=== PATIENT | female | born 1955 | race Caucasian/White ===

== ENCOUNTER 2016-05-26 15:15 | Emergency (ER) | payer MEDICARE, MEDICAID ==
[2016-05-26] MEDS ORDERED: Glycerin Adult 2.1 GM Supp RECTAL ONE (15:49)
[2016-05-26] MEDS ORDERED: Meclizine 25 MG Tab PO ONE (15:49)
[2016-05-26] MEDS ORDERED: Sodium Chloride 0.9% 10 ML Syringe FLUSH PRN (15:50)
[2016-05-26] MEDS ORDERED: cefTRIAXone 1 GM in Sodium Chloride 0.9% 50 ML IV ONE ×2 (15:51→17:00)
[2016-05-26] MEDS ORDERED: Acetaminophen 500 MG Tab PO ONE (15:56)
--- NOTE | 2016-05-26 15:56 | EDM.PDOC ---
ED HPI ENT - General Chief Complaint: ENT Problem Stated Complaint: WEAKNESS Time Seen by Provider: 05/26/16 15:45 Source: Reports: Patient, Old records History Limitations: Reports: No limitations - History of Present Illness INITIAL COMMENTS - FREE TEXT/NARRATIVE: 60 yo female here with swelling to the L side of her nose, dizziness, and constipation. Saw Dr. Santos recently and was placed on Bactrim(has had 3 doses so far). Nose infection getting worse since starting the Bactrim. Denies fever. Describes dizziness as vertigo/spinning. States currently constipated for a few days, but alternates historically between constipation and diarrhea. Symptom Onset Date: 05/25/16 Timing/Duration: Reports: Hour(s):, Getting worse Severity: moderate Location: Reports: nose (L side of nose) Quality: Reports: Other (tender) Improves with: Reports: None Worsens with: Reports: Other (time) Associated symptoms: Reports: other (vertigo/constipation). 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) (Bactrim) - Related Data Allergies/ADRs: Allergies Allergy/AdvReac Type Severity Reaction Status Date / Time acetaminophen Allergy Cannot Verified 05/26/16 15:59 [From Darvocet-N] Remember ciprofloxacin [From Cipro] Allergy Rash Verified 05/26/16 15:59 ciprofloxacin HCl Allergy Rash Verified 05/26/16 15:59 [From Cipro] dexamethasone [From Maxitrol] Allergy Cannot Verified 05/26/16 15:59 Remember hydrocodone [Hydrocodone] Allergy Cannot Verified 05/26/16 15:59 Remember morphine Allergy Nausea and Verified 05/26/16 15:59 Vomiting neomycin [From Maxitrol] Allergy Cannot Verified 05/26/16 15:59 Remember Penicillins Allergy Rash Verified 05/26/16 15:59 polymyxin B [From Maxitrol] Allergy Cannot Verified 05/26/16 15:59 Remember propoxyphene Allergy Cannot Verified 05/26/16 15:59 [From Darvocet-N] Remember shellfish derived Allergy Difficulty Verified 05/26/16 16:01 Swallowing tramadol Allergy Rash Verified 05/26/16 16:01 tea Allergy Mild Nausea and Uncoded 05/26/16 16:01 Vomiting Home Meds: Home Meds Ascorbate Calcium [Vitamin C] 1,000 mg PO DAILY 12/10/15 [History] Aspirin [Halfprin] 81 mg PO DAILY 12/10/15 [History] Calcium Carbonate/Vitamin D3 [Calcium 600 + D3 Softgel] 2 each PO DAILY [History] Cholecalciferol (Vitamin D3) [Vitamin D3] 2,000 unit PO DAILY 12/10/15 [History] Cyanocobalamin (Vitamin B12) [Vitamin B12] 1,000 mcg PO DAILY 12/10/15 [History] Dorzolamide HCl/Timolol Maleat [Cosopt Eye Drops] 1 drop EYEBOTH BID 12/10/15 [ History] Escitalopram [Lexapro] 20 mg PO DAILY 12/10/15 [History] Gabapentin [Neurontin] 600 mg PO TID 12/10/15 [History] Multivitamin [Daily Multiple Vitamin] 1 tab PO DAILY 12/10/15 [History] Nortriptyline 50 mg PO DAILY 12/10/15 [History] Omeprazole 20 mg PO DAILY 12/10/15 [History] Ondansetron [Zofran ODT] 4 mg PO Q8H PRN 12/10/15 [History] Oxybutynin [Oxybutynin ER] 10 mg PO DAILY 12/10/15 [History] Simvastatin [Zocor] 20 mg PO DAILY 12/10/15 [History] clonazePAM [Clonazepam] 1 mg PO BID 12/10/15 [History] sulfaSALAzine 500 mg PO QID 12/10/15 [History] Past Medical History HEENT History: Reports: Cataract, Hard of hearing Cardiovascular History: Reports: High cholesterol Gastrointestinal History: Reports: Chronic constipation, GERD, Irritable bowel syndrome Genitourinary History: Reports: Renal calculus 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 , Musculoskeletal History: Reports: Arthritis Psychiatric History: Reports: Anxiety, Depression - Past Surgical History HEENT Surgical History: Reports: Cataract surgery Cardiovascular Surgical History: Reports: None GI Surgical History: Reports: Cholecystectomy, Other (see below) Other GI Surgeries/Procedures: Surgery for ulcer Female Surgical History: Reports: Hysterectomy Musculoskeletal Surgical History: Reports: None Social & Family History - Tobacco Use Smoking Status *Q: Current Every Day Smoker Years of Tobacco use: 46 Packs/Tins Daily: 1 Used Tobacco, but Quit: No Second Hand Smoke Exposure: No - Caffeine Use Caffeine Use: Reports: Coffee, Soda - Alcohol Use Days Per Week of Alcohol Use: 0 - Recreational Drug Use Recreational Drug Use: No ED ROS ENT - Review of Systems Review Of Systems: See Below Constitutional: Reports: no symptoms HEENT: Reports: Nose pain (L side of nose red/tender/ and swollen) Respiratory: Reports: No Symptoms Cardiovascular: Reports: No symptoms Endocrine: Reports: no symptoms GI/Abdominal: Reports: Constipation. Denies: Abdominal pain, Black stool, Bloody stool, Diarrhea, Decreased appetite, Distension, Hematemesis, Hematochezia, Melena, Nausea, Vomiting : Reports: no symptoms Musculoskeletal: Reports: no symptoms Skin: Reports: erythema (to L side of nose) Neurological: Reports: No Symptoms ED EXAM, ENT - Physical Exam Exam: See Below Text/Narrative:: Appears much older than stated age. Exam Limited By: No limitations General Appearance: alert, WD/WN, no apparent distress Eye Exam: bilateral eye: normal inspection Ears: hearing loss Nose: normal mucousa, no blood, nasal swelling (L side of nose red and a little swollen), nasal tenderness. No: active bleeding, dried blood Mouth/Throat: Normal inspection, Normal lips, Normal oropharynx, Normal teeth Head: atraumatic, normocephalic Neck: normal inspection, supple, non-tender Respiratory/Chest: no respiratory distress, lungs clear, normal breath sounds, no accessory muscle use Cardiovascular: regular rate, rhythm, no edema GI/Abdominal: normal bowel sounds, soft, no distention, other (Some generalized fullness) Back: normal inspection Extremities: normal inspection, normal range of motion, non-tender, no pedal edema Neurological: alert, oriented, CN II-XII intact, normal cognition, no motor/ sensory deficits Psychiatric: normal affect, normal mood Skin: Warm, Dry, Intact, Erythema (L side of nose) Lymphatic: no adenopathy Course - Vital Signs Text/Narrative:: meclizine 25 mg po, acetaminophen 1000mg po, Rocephin 1 gm IV, KCL [address] scan-soft tissue swelling only Last Recorded V/S: Last Vital Signs Temp 36.9 C 05/26/16 15:48 Pulse 81 05/26/16 15:48 Resp 16 05/26/16 15:48 BP 112/62 05/26/16 15:48 Pulse Ox 99 05/26/16 15:48 - Orders/Labs/Meds Orders: Active Orders 24 hr Category Date Time Status Max Facial Sinus wo Cont [CT] Stat Exams 05/26/16 17:14 Taken Sodium Chloride 0.9% [Saline Flush] Med 05/26/16 15:50 Active 10 ml FLUSH ASDIRECTED PRN Saline Lock Insert [OM.PC] Routine Oth 05/26/16 15:50 Ordered Medication Orders Sodium Chloride (Saline Flush) 10 ml FLUSH ASDIRECTED PRN PRN Reason: Keep Vein Open Last Admin: 05/26/16 16:57 Dose: 10 ml Labs: Laboratory Tests 05/26/16 05/26/16 05/26/16 Range/Units 16:20 16:20 16:45 WBC 11.6 (4.5-12.0) X10-3/uL RBC 3.67 (3.23-5.20) x10(6)uL Hgb 11.6 (11.5-15.5) g/dL Hct 34.3 (30.0-51.3) % MCV 93.4 (80-96) fL MCH 31.6 (27.7-33.6) pg MCHC 33.8 (32.2-35.4) g/dL RDW 13.1 (11.5-15.5) % Plt Count 339 (125-369) X10(3)uL Sodium 134 L (135-145) mmol/L Potassium 3.3 L (3.5-5.3) mmol/L Chloride 98 L (100-110) mmol/L Carbon Dioxide 28 (23-29) mmol/L BUN 11 (8-23) mg/dL Creatinine 0.7 (0.6-1.3) mg/dL Est Cr Clr Drug Dosing 65.90 mL/min Estimated GFR (MDRD) > 60 (>60) BUN/Creatinine Ratio 15.7 (9-20) Glucose 83 (80-116) mg/dL Calcium 9.3 (8.6-10.2) mg/dL C-Reactive Protein 7.6 H* (0.0-1.0) mg/dL Urine Color Yellow (YELLOW) Urine Appearance Clear (CLEAR) Urine pH 6.0 (5.0-6.5) Ur Specific [place] 1.010 (1.010-1.025) Urine Protein Negative (NEGATIVE) mg/dL Urine Glucose (UA) Normal (NEGATIVE) mg/dL Urine Ketones Negative (NEGATIVE) mg/dL Urine Occult Blood Negative (NEGATIVE) Urine Nitrite Negative (NEGATIVE) Urine Bilirubin Negative (NEGATIVE) Urine Urobilinogen Normal (NEGATIVE) mg/dL Ur Leukocyte Esterase Negative (NEGATIVE) Urine RBC Not seen (0) Urine WBC 0-5 (0) Ur Squamous Epith Cells Few H (NS,R,O) Urine Bacteria Rare H (NS) Meds: Medications Generic Name Dose Route Start Last Admin Trade Name Freq PRN Reason Stop Dose Admin Sodium Chloride 10 ml 05/26/16 15:50 05/26/16 16:57 Saline Flush FLUSH 10 ml ASDIRECTED PRN Administration Keep Vein Open Discontinued Medications Generic Name Dose Route Start Last Admin Trade Name Freq PRN Reason Stop Dose Admin Acetaminophen 1,000 mg 05/26/16 15:56 05/26/16 17:13 Tylenol Extra Strength PO 05/26/16 15:57 Not Given ONETIME ONE Glycerin 1 supp 05/26/16 15:49 05/26/16 16:29 Sani-Supp Adult RECTAL 05/26/16 15:50 1 supp ONETIME ONE Administration Ceftriaxone Sodium 1 gm/ 50 mls @ 100 mls/hr 05/26/16 17:00 05/26/16 16:58 Sodium Chloride IV 05/26/16 17:29 100 mls/hr ONETIME ONE Administration Meclizine HCl 25 mg 05/26/16 15:49 05/26/16 16:29 Antivert PO 05/26/16 15:50 25 mg ONETIME ONE Administration Potassium Chloride 40 meq 05/26/16 17:03 05/26/16 17:15 Klor-Con 10 PO 05/26/16 17:04 40 meq ONETIME ONE Administration Departure - Departure Time of Disposition: 18:10 Disposition: Home, Self-Care 01 Condition: fair Clinical Impression: Facial cellulitis, Hypokalemia - My Orders Last 24 Hours: My Active Orders 05/26/16 15:50 Sodium Chloride 0.9% [Saline Flush] 10 ml FLUSH ASDIRECTED PRN Saline Lock Insert [OM.PC] Routine 05/26/16 17:14 Max Facial Sinus wo Cont [CT] Stat - Assessment/Plan Last 24 Hours: My Active Orders 05/26/16 15:50 Sodium Chloride 0.9% [Saline Flush] 10 ml FLUSH ASDIRECTED PRN Saline Lock Insert [OM.PC] Routine 05/26/16 17:14 Max Facial Sinus wo Cont [CT] Stat
[2016-05-26] MEDS ORDERED: Potassium Chloride 10 MEQ Tab.ER PO ONE (17:03)
[2016-05-26 19:01] VITALS: BP 107/62
== END 2016-05-26 18:58 | disposition home or self-care (01) ==
LOC: FB.ED 15:15
DX: L03.211 Cellulitis of face (principal); E87.6 Hypokalemia; M19.90 Unspecified osteoarthritis, unspecified site; F41.9 Anxiety disorder, unspecified; F32.9 Major depressive disorder, single episode, unspecified; E78.00 Pure hypercholesterolemia, unspecified; K21.9 Gastro-esophageal reflux disease without esophagitis; F17.210 Nicotine dependence, cigarettes, uncomplicated; Z98.49 Cataract extraction status, unspecified eye; Z90.49 Acquired absence of other specified parts of digestive tract; Z90.710 Acquired absence of both cervix and uterus; Z79.82 Long term (current) use of aspirin; Z79.899 Other long term (current) drug therapy; Z88.5 Allergy status to narcotic agent; Z88.0 Allergy status to penicillin; Z91.013 Allergy to seafood; Z91.09 Other allergy status, other than to drugs and biological substances; Z88.1 Allergy status to other antibiotic agents; Z88.6 Allergy status to analgesic agent; Z88.8 Allergy status to other drugs, medicaments and biological substances
CPT/HCPCS: 36415; 70486; 80048; 81001; 85027; 86140; 96365; 99285; A9270; J0696; J7050; 99284

== ENCOUNTER 2016-10-20 11:52 | Emergency (ER) | payer MEDICARE, MEDICAID ==
[2016-10-20] MEDS ORDERED: HYDROmorphone 2 MG/ML SDV IVPUSH ONE ×2 (11:54→12:34)
[2016-10-20] MEDS ORDERED: Lactated Ringers 1,000 ML IV SCH (12:00)
[2016-10-20] MEDS ORDERED: Metoclopramide 10 MG/2 ML SDV IVPUSH ONE (12:03)
--- NOTE | 2016-10-20 12:10 | EDM.PDOC ---
ED HPI GENERAL MEDICAL PROBLEM - General Chief Complaint: Abdominal Pain Stated Complaint: SIDE PAIN Time Seen by Provider: 10/20/16 11:55 Source of Information: Reports: Patient, Old Records, RN History Limitations: Reports: Other (poor historian) - History of Present Illness INITIAL COMMENTS - FREE TEXT/NARRATIVE: 60 yo female presents to the ER on referral from Dr. Santos for RUQ abdominal pain that began 2 days ago and has progressed. She had one dark stool since the pain began. Does have a pHx of colon problems and PUD. Is on sulfasalazine and omeprazole. Is a smoker. May have IBS based on a hx of alternating diarrhea and constipation. No fever. Has nausea without vomiting. Took morphine this morning at home without benefit. Her chart shows a hx of a pancreatic pseudocyst, but Karen seems unaware of this. Pain is constant, but is worse with movement or pressing on area or bending. Lives alone with her dog. Has no gallbladder. Onset: Gradual Onset Date: 10/18/16 Duration: Day(s): Location: Reports: Abdomen (RUQ) Quality: Reports: Ache Severity: Severe Improves with: Reports: None Worsens with: Reports: Breathing, Movement Context: Reports: Other (Hx of both PUD and "colon problems" and ? IBS) Associated Symptoms: Reports: Loss of Appetite, Nausea/Vomiting (no vomiting.). 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 Medication(s) (morphine this am without relief.) - Related Data Allergies Allergy/AdvReac Type Severity Reaction Status Date / Time acetaminophen Allergy Cannot Verified 05/26/16 15:59 [From Darvocet-N] Remember ciprofloxacin [From Cipro] Allergy Rash Verified 05/26/16 15:59 ciprofloxacin HCl Allergy Rash Verified 05/26/16 15:59 [From Cipro] dexamethasone [From Maxitrol] Allergy Cannot Verified 05/26/16 15:59 Remember hydrocodone [Hydrocodone] Allergy Cannot Verified 05/26/16 15:59 Remember morphine Allergy Nausea and Verified 05/26/16 15:59 Vomiting neomycin [From Maxitrol] Allergy Cannot Verified 05/26/16 15:59 Remember Penicillins Allergy Rash Verified 05/26/16 15:59 polymyxin B [From Maxitrol] Allergy Cannot Verified 05/26/16 15:59 Remember propoxyphene Allergy Cannot Verified 05/26/16 15:59 [From Nicho-N] Remember shellfish derived Allergy Difficulty Verified 05/26/16 16:01 Swallowing tramadol Allergy Rash Verified 05/26/16 16:01 tea Allergy Mild Nausea and Uncoded 05/26/16 16:01 Vomiting Home Meds: Home Meds Ascorbate Calcium [Vitamin C] 1,000 mg PO DAILY 12/10/15 [History] Aspirin [Halfprin] 81 mg PO DAILY 12/10/15 [History] Calcium Carbonate/Vitamin D3 [Calcium 600 + D3 Softgel] 2 each PO DAILY [History] Cholecalciferol (Vitamin D3) [Vitamin D3] 2,000 unit PO DAILY 12/10/15 [History] Cyanocobalamin (Vitamin B12) [Vitamin B12] 1,000 mcg PO DAILY 12/10/15 [History] Dorzolamide HCl/Timolol Maleat [Cosopt Eye Drops] 1 drop EYEBOTH BID 12/10/15 [ History] Escitalopram [Lexapro] 20 mg PO DAILY 12/10/15 [History] Gabapentin [Neurontin] 600 mg PO TID 12/10/15 [History] Multivitamin [Daily Multiple Vitamin] 1 tab PO DAILY 12/10/15 [History] Nortriptyline 50 mg PO DAILY 12/10/15 [History] Omeprazole 20 mg PO DAILY 12/10/15 [History] Ondansetron [Zofran ODT] 4 mg PO Q8H PRN 12/10/15 [History] Oxybutynin [Oxybutynin ER] 10 mg PO DAILY 12/10/15 [History] Simvastatin [Zocor] 20 mg PO DAILY 12/10/15 [History] clonazePAM [Clonazepam] 1 mg PO BID 12/10/15 [History] sulfaSALAzine 500 mg PO QID 12/10/15 [History] Past Medical History HEENT History: Reports: Cataract, Hard of Hearing Cardiovascular History: Reports: High Cholesterol Gastrointestinal History: Reports: Chronic Constipation, GERD, Irritable Bowel Syndrome Genitourinary History: Reports: Renal Calculus 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 , Musculoskeletal History: Reports: Arthritis Psychiatric History: Reports: Anxiety, Depression - Infectious Disease History Infectious Disease History: Reports: Chicken Pox, Mumps - Past Surgical History HEENT Surgical History: Reports: Cataract Surgery GI Surgical History: Reports: Cholecystectomy, Other (See Below) Social & Family History - Tobacco Use Smoking Status *Q: Current Every Day Smoker Years of Tobacco use: 46 Packs/Tins Daily: 1 Used Tobacco, but Quit: No Second Hand Smoke Exposure: No - Caffeine Use Caffeine Use: Reports: Coffee, Soda - Alcohol Use Days Per Week of Alcohol Use: 0 - Recreational Drug Use Recreational Drug Use: No ED ROS GENERAL - Review of Systems Review Of Systems: See Below Constitutional: Reports: Decreased Appetite. Denies: Fever, Chills HEENT: Reports: No Symptoms Respiratory: Reports: No Symptoms Cardiovascular: Reports: No Symptoms Endocrine: Reports: No Symptoms GI/Abdominal: Reports: Abdominal Pain, Anorexia, Black Stool, Decreased Appetite , Melena, Nausea. Denies: Bloody Stool, Constipation, Diarrhea, Hematemesis, Hematochezia, Vomiting : Reports: No Symptoms Musculoskeletal: Reports: No Symptoms Skin: Reports: No Symptoms Neurological: Reports: No Symptoms ED EXAM, GI/ABD - Physical Exam Exam: See Below Exam Limited By: No Limitations General Appearance: Alert, WD/WN, No Apparent Distress, Thin, Other (Looks older than 60) Eyes: Bilateral: Normal Appearance, EOMI Ears: Normal External Exam, Normal Canal, Hearing Loss Nose: Normal Inspection, Normal Mucosa, No Blood Throat/Mouth: Other (Black coated tongue, edentulous) Head: Atraumatic, Normocephalic Neck: Normal Inspection, Supple, Non-Tender Respiratory/Chest: No Respiratory Distress, Lungs Clear, Decreased Breath Sounds Cardiovascular: Regular Rate, Rhythm, No Edema GI/Abdominal Exam: Soft, No Distention, Tender (RUQ) Back Exam: Normal Inspection. No: CVA Tenderness (R), CVA Tenderness (L) Extremities: Normal Inspection, Normal Range of Motion, Non-Tender, No Pedal Edema Neurological: Alert, Oriented, CN II-XII Intact, Normal Cognition, No Motor/ Sensory Deficits Psychiatric: Normal Affect, Normal Mood Skin Exam: Warm, Dry, Intact, Normal Color, No Rash Lymphatic: No Adenopathy Course - Vital Signs Text/Narrative:: Minimal change in sx's after GI cocktail po. Last Recorded V/S: Last Vital Signs Temp 36.5 C 10/20/16 11:52 Pulse 79 10/20/16 11:52 Resp 20 10/20/16 11:52 BP 114/101 H 10/20/16 11:52 Pulse Ox 98 10/20/16 11:52 - Orders/Labs/Meds Orders: Active Orders 24 hr Category Date Time Status Lactated Ringers [Ringers, Lactated] 1,000 ml Med 10/20/16 12:00 Active IV ASDIRECTED Pantoprazole [ProTONIX] Med 10/20/16 14:30 Ordered 40 mg PO 0600 Medication Orders Lactated Ringer's (Ringers, Lactated) 1,000 mls @ 150 mls/hr IV ASDIRECTED RICKY Last Admin: 10/20/16 12:21 Dose: 150 mls/hr Labs: Laboratory Tests 10/20/16 10/20/16 10/20/16 Range/Units 12:09 12:09 12:10 WBC 8.5 (4.5-12.0) X10-3/uL RBC 4.28 (3.23-5.20) x10(6)uL Hgb 13.1 (11.5-15.5) g/dL Hct 39.0 (30.0-51.3) % MCV 91.1 (80-96) fL MCH 30.6 (27.7-33.6) pg MCHC 33.6 (32.2-35.4) g/dL RDW 13.2 (11.5-15.5) % Plt Count 386 H (125-369) X10(3)uL Sodium 133 L (135-145) mmol/L Potassium 4.0 (3.5-5.3) mmol/L Chloride 98 L (100-110) mmol/L Carbon Dioxide 27 (23-29) mmol/L BUN 6 L (8-23) mg/dL Creatinine 0.7 (0.6-1.3) mg/dL Est Cr Clr Drug Dosing TNP Estimated GFR (MDRD) > 60 (>60) BUN/Creatinine Ratio 8.6 L (9-20) Glucose 109 (80-116) mg/dL Calcium 9.4 (8.6-10.2) mg/dL Alkaline Phosphatase 90 (56-112) IU/L Amylase 37 (28-100) U/L Meds: Medications Generic Name Dose Route Start Last Admin Trade Name Freq PRN Reason Stop Dose Admin Lactated Ringer's 1,000 mls @ 150 mls/hr 10/20/16 12:00 10/20/16 12:21 Ringers, Lactated IV 150 mls/hr ASDIRECTED RICKY Administration Discontinued Medications Generic Name Dose Route Start Last Admin Trade Name Shruti PRN Reason Stop Dose Admin Al Hydroxide/Mg Hydroxide 15 0 ml 10/20/16 12:39 10/20/16 13:38 ml/ Lidocaine HCl 15 ml PO 10/20/16 12:40 15 ml ONETIME ONE Administration Hydromorphone HCl 0.5 mg 10/20/16 11:54 10/20/16 12:19 Dilaudid IVPUSH 10/20/16 11:55 0.5 mg ONETIME ONE Administration Hydromorphone HCl 1 mg 10/20/16 12:34 10/20/16 12:44 Dilaudid IVPUSH 10/20/16 12:35 1 mg ONETIME ONE Administration Metoclopramide HCl 10 mg 10/20/16 12:03 10/20/16 12:45 Reglan IVPUSH 10/20/16 12:04 10 mg ONETIME ONE Administration Omeprazole 40 mg 10/20/16 14:30 Omeprazole PO 0600 [facility] Departure - Departure Time of Disposition: 14:35 Disposition: Home, Self-Care 01 Condition: Fair Clinical Impression: Gastritis Qualifiers: Gastritis type: unspecified gastritis Chronicity: acute Gastritis bleeding: without bleeding Qualified Code(s): K29.00 - Acute gastritis without bleeding - Discharge Information Referrals: Devendra Santos MD [Primary Care Provider] - Forms: ED Department Discharge - My Orders Last 24 Hours: My Active Orders 10/20/16 12:00 Lactated Ringers [Ringers, Lactated] 1,000 ml IV ASDIRECTED 10/20/16 14:30 Pantoprazole [ProTONIX] 40 mg PO 0600 - Assessment/Plan Last 24 Hours: My Active Orders 10/20/16 12:00 Lactated Ringers [Ringers, Lactated] 1,000 ml IV ASDIRECTED 10/20/16 14:30 Pantoprazole [ProTONIX] 40 mg PO 0600
[2016-10-20 12:33] VITALS: BP 114/101
[2016-10-20] MEDS ORDERED: Alum Hydroxide/Mag Hydroxide 15 ML, Lidocaine 2% 15 ML PO ONE ×2 (12:39)
[2016-10-20] MEDS ORDERED: Omeprazole 40 MG Cap.CR PO SCH (14:30)
[2016-10-20] MEDS ORDERED: Pantoprazole 40 MG Tab.CR PO SCH (14:30)
== END 2016-10-20 15:35 | disposition home or self-care (01) ==
LOC: FB.ED 11:52
DX: K29.00 Acute gastritis without bleeding (principal); E78.00 Pure hypercholesterolemia, unspecified; K21.9 Gastro-esophageal reflux disease without esophagitis; M19.90 Unspecified osteoarthritis, unspecified site; F41.9 Anxiety disorder, unspecified; F32.9 Major depressive disorder, single episode, unspecified; F17.210 Nicotine dependence, cigarettes, uncomplicated; Z88.6 Allergy status to analgesic agent; Z88.0 Allergy status to penicillin; Z88.5 Allergy status to narcotic agent; Z88.1 Allergy status to other antibiotic agents; Z88.8 Allergy status to other drugs, medicaments and biological substances; Z91.011 Allergy to milk products; Z79.82 Long term (current) use of aspirin; Z79.899 Other long term (current) drug therapy; Z90.49 Acquired absence of other specified parts of digestive tract; Z98.49 Cataract extraction status, unspecified eye
CPT/HCPCS: 36415; 80048; 82150; 82272; 84075; 85027; 96361; 96374; 96375; 99284; A9270; J1170; J2765; J7120

== ENCOUNTER 2016-11-10 08:24 | Day surgery (SDC) | payer MEDICARE, MEDICAID ==
[~2016-11-10 08:24] MED LIST: Lactated Ringers 1,000 ML IV SCH; Sodium Chloride 0.9% 10 ML Syringe FLUSH PRN
[2016-11-10] MEDS ORDERED: Lidocaine 2% 100 MG/5 ML Syringe IVPUSH ONE (10:00)
[2016-11-10] MEDS ORDERED: Propofol 200 MG/20 ML SDV IV ONE (10:00)
[2016-11-10] MEDS ORDERED: Midazolam 1 MG/ML 2 ML SDV IV ONE (10:00)
--- NOTE | 2016-11-10 10:49 | PCM.OPNOTE ---
- General Post-Op/Procedure Note Date of Surgery/Procedure: 11/10/16 Operative Procedure(s): egd with bx. c scope with bx Findings: gastritis hiatal hernia rectal polyp Pre Op Diagnosis: ruq abd pain. hx of UC Post-Op Diagnosis: gastritis. hiatal hernia. rectal polyp Anesthesia Technique: MAC Primary Surgeon: Ortiz uHnt Anesthesia Provider: Thais Marroquin Pathology: gastric random colon bx rectal polyp Complications: None Condition: Good Free Text/Narrative:: see dictation
[2016-11-10 11:42] VITALS: BP 145/51
--- NOTE | 2016-11-10 19:05 | OR ---
DATE OF OPERATION: 11/10/2016 SURGEON: Ortiz Hunt MD PROCEDURE PERFORMED: Esophagogastroduodenoscopy and colonoscopy, both with cold forceps biopsy. PREOPERATIVE DIAGNOSES: 1. History of ulcerative colitis. 2. History of right upper quadrant abdominal pain. POSTOPERATIVE DIAGNOSES: 1. Gastritis. 2. Hiatal hernia. 3. Rectal polyp. INDICATIONS FOR PROCEDURE: This is a 60-year-old white female who has a history of right upper quadrant abdominal pain. Subsequent workup has been negative. She has been offered an upper and lower endoscopy as part of her workup for her pain. DESCRIPTION OF PROCEDURE: After an excellent IV sedation was administered, the bite block was inserted. A flexible endoscope was passed without difficulty down the patient's esophagus into the stomach. The stomach was insufflated. The scope was passed through the pylorus to the second portion of the duodenum and slowly withdrawn and the following findings were noted. The duodenum was unremarkable. The stomach demonstrated some mild gastritis as well as a hiatal hernia. Biopsies were taken. GE junction measured 40 cm, and the esophageal exam was unremarkable. Attention was then turned to the colon. Digital rectal exam was performed. Again, no marked abnormality was noted. A flexible colonoscope was inserted and advanced to the cecum. The prep was excellent. The following findings were noted. Ascending colon, unremarkable. Biopsies were taken due to history of colitis. Transverse colon, unremarkable. Random biopsies were taken. Descending colon, unremarkable. Random biopsies were taken. Sigmoid, unremarkable. Random biopsies were taken. Rectum, at approximately 10 cm, a small rectal polyp was encountered. This was biopsied with cold loop snare and sent for permanent. The colon was deflated. The scope was removed. The patient tolerated the procedure well and was taken to recovery in good condition. /[id number] /MODL
== END 2016-11-10 12:09 | disposition home or self-care (01) ==
LOC: FB.SDS 08:24
PROVIDERS: ATTEND Surgery
DX: K29.50 Unspecified chronic gastritis without bleeding (principal); D12.8 Benign neoplasm of rectum; K44.9 Diaphragmatic hernia without obstruction or gangrene; K21.9 Gastro-esophageal reflux disease without esophagitis; E78.5 Hyperlipidemia, unspecified; F41.9 Anxiety disorder, unspecified; Z88.0 Allergy status to penicillin; Z88.1 Allergy status to other antibiotic agents; Z88.8 Allergy status to other drugs, medicaments and biological substances; Z91.013 Allergy to seafood; Z91.09 Other allergy status, other than to drugs and biological substances; Z79.82 Long term (current) use of aspirin; Z79.899 Other long term (current) drug therapy; Z90.49 Acquired absence of other specified parts of digestive tract; Z98.890 Other specified postprocedural states; F17.210 Nicotine dependence, cigarettes, uncomplicated
CPT/HCPCS: 00810; 43239; 45380; 45385; J2250; J2704; J7120; 88305; 88342

== ENCOUNTER 2017-04-16 14:10 | Emergency (ER) | payer MEDICARE, MEDICAID ==
[2017-04-16 17:37] VITALS: BP 111/72
--- NOTE | 2017-04-18 11:02 | ER ---
DATE SEEN: 04/16/2017 TIME SEEN: The patient was seen at 1410 hours. CHIEF COMPLAINT: Chest pain. HISTORY OF PRESENT ILLNESS: This 61-year-old woman who lives alone presents with a history of depression, bladder spasm, [id number] of smoking, edentulous, irritable bowel syndrome, dyslipidemia, degenerative disk disease, degenerative joint disease of the thoracic and lumbar spine, right chest pain, hematochezia - related to intermittent diarrhea that occurs with irritable bowel syndrome, laryngitis from smoking, fibromyalgia, chronic obstructive lung disease, and documented left hemiblock with hypertension, glaucoma, cyst on her liver, attempting smoking cessation without success - Wellbutrin, B12 deficiency secondary to chronic use of PPIs. The patient presents with a history of onset of chest pain at 1332 hours, right- sided character. It is 6-8/10 intensity without associated diaphoresis, lightheadedness, radiation of pain to the jaw, neck, arm, back, abdominal pain, nausea, vomiting, diarrhea, or lightheadedness. The patient has not had a previous myocardial infarction. No previous history of CVA, but she has had hypertension and is a smoker as noted above. CURRENT MEDICATIONS: 1. Tylenol. 2. Vitamin D. 3. Calcium carbonate. 4. Aspirin. 5. Cranberry extract. 6. Refresh Tears. 7. Ezetimibe for dyslipidemia, familial hypercholesteremia. 8. Escitalopram. 9. Dorzolamide. 10.Cyanocobalamin. 11.Zofran p.r.n. 12.Omeprazole 40 mg daily. 13.Nortriptyline for chronic back pain. 14.Multivitamin. 15.Gabapentin for chronic back pain 600 mg t.i.d. 16.Simvastatin 20 mg daily. 17.Potassium chloride 20 mEq daily. 18.MiraLAX daily for constipation. 19.Oxybutynin for bladder spasm, incontinence. 20.Sulfasalazine for IBS. 21.Clonazepam for stress. 22.Vitamin B complex. ALLERGIES: Many. Penicillin, ciprofloxacin, shellfish, tramadol, Darvocet, dexamethasone, hydrocodone, neomycin, polymyxin, Darvocet T. REVIEW OF SYSTEMS: CONSTITUTIONAL: The patient has decreased hearing. Wears glasses. Has glaucoma. Denies headache, neck stiffness. Edentulous. No difficulty swallowing. CARDIORESPIRATORY: See above. GI: Has extensive hemorrhoids because of loose stools intermittently from the constipation and diarrhea. Hemorrhoids. No history of cancer of the bowel. : Denies stones, frequency, urgency, or dysuria. MUSCULOSKELETAL: Has mild arthritis. PHYSICAL EXAMINATION: VITAL SIGNS: Blood pressure 154/94, heart rate 81, respirations 14, oxygen saturation 100%, temperature 36.8 degrees centigrade. CONSTITUTIONAL: The patient has marked grindstone's feet body. She is well dressed, appropriate, articulate, has decreased hearing and wearing glasses. She is not diaphoretic. Monitored sinus rhythm. No rhythm is noted. No diaphoresis. HEENT: PERRLA intact. Pharynx without abnormality. NECK: Supple. No thyromegaly or masses in the neck. No bruits in the neck. LUNGS: Clear superiorly, but had rales noted in bilateral bases anterior and posterior. End inspiratory-expiratory low-pitched wheezes heard. Some are audible. HEART: S1, S2. No irregular rate and rhythm. ABDOMEN: Soft. No guarding, no abdominal discomfort. Increased abdominal girth. LOWER EXTREMITIES: No pedal edema. NEURO: Deep tendon reflexes upper and lower extremities hypoactive, but present. Cranial nerves 2 through 12 intact except for decreased hearing. Muscle strength in upper and lower extremities is normal. No pronator drift. DIAGNOSTIC DATA: EKG demonstrated anterior hemiblock-S in inferior leads and also rS in leads II, III, and aVF. Sinus rhythm. LABORATORY FINDINGS: Troponin x2 is negative. Hemoglobin is 12.1, white count 6500. PMNs low at 43 and lymphocytes elevated at 41 - lymphocytosis, D-dimer is negative. Troponin is negative. Complete metabolic panel is negative except for glucose of 54 - hypoglycemia. Chest x-ray did not reveal any infiltrate. She has increased hyperlucency of the lungs. COPD. No cardiomegaly. The patient had severe pain when I palpated her back. She at this point says she has fibromyalgia and also palpation of the anterior chest, ribs 6, 7, 8, 9, 10 are markedly tender to palpation at the costochondral joints and also the 1 through 6 sternal chondral joints and also the paraspinal muscles of the right greater than left in the back T6 through T12 and bilateral paraspinal muscles discomfort more on the right than left 6 through T12 and also L1 through L4. X-ray was contemplated to the lumbar thoracic spine, but a CAT scan was performed because she had extraordinary bone pain. She has compression fractures T6, T12, L1, L2, L4 which are old and chronic. No acute fractures noted. ASSESSMENT: 1. The patient's chest pain is secondary to fibromyalgia. 2. Right chest wall pain, costochondritis, and sternal chondritis. 3. No myocardial infarction. 4. Hypertension. 5. Chronic obstructive lung disease. 6. Normal white count with lymphocytosis, etiology indeterminate. 7. Dyslipidemia. 8. Irritable bowel syndrome with history of hematochezia intermittently with constipation that alternates back with diarrhea. 9. Mild laryngitis secondary to chronic smoking, rule out laryngeal cancer. 10.Fibromyalgia. 11.Chronic obstructive lung disease. 12.Left hemiblock. 13.The patient is smoking, abuse - 40+ pack-years of smoking. She tried Wellbutrin, has not been very successful. PLAN: 1. The patient to discontinue smoking. We discussed the smoking. 2. Her chest wall pain is a function of her fibromyalgia. She is to exercise and use 1000 mg of Tylenol and ibuprofen 600 mg together q.6 hours for pain. Continue other medicines. Follow up with doctor in a week. 3. She also has old chronic compression fracture of lower spine. She has pain intermittently. Exercise can help diminish that. She is encouraged to continue with aspirin. 4. Additional treatment. The patient did not receive aspirin on arrival to the hospital because she had taken one 325 mg aspirin at home. Also, smoking cessation instructions regarding use of NicoDerm and also Nicorette lozenges. Work with her doctor on smoking cessation. /[id number] SHEYLA/BROOKE
--- NOTE | 2017-04-18 13:46 | CR ---
INDICATION: Right chest wall pain and COPD with history of 43 pack years smoking, low abdominal pain, CHEST: PA and lateral views of the chest, 04/16/2017, were compared with 2016, and revealed the heart to be increased in size compared with the previous examination, with LVE. The aorta is only very minimally tortuous, but does appear to be increased in tortuosity compared with the previous study. There is again noted evidence of a healed rib fracture posterolaterally on the right at #7 rib. No definite infiltrate, effusion, contusion, or pneumothorax was identified. Overlying EKG leads are noted. There is a compression fracture at an upper middle thoracic level. Anterior vertebral body volume loss is noted at that level of mild degree and of indeterminate age. IMPRESSION: 1. Progressive ASHD with mild LVE. 2. No acute process. 3. Old healed rib fracture on the right. MTDD
== END 2017-04-16 17:49 | disposition home or self-care (01) ==
LOC: FB.ED 14:10
DX: M79.7 Fibromyalgia (principal); K58.9 Irritable bowel syndrome, unspecified; R07.89 Other chest pain; M94.0 Chondrocostal junction syndrome [Tietze]; I10 Essential (primary) hypertension; J44.9 Chronic obstructive pulmonary disease, unspecified; E78.5 Hyperlipidemia, unspecified; Z79.899 Other long term (current) drug therapy; Z79.82 Long term (current) use of aspirin; Z88.0 Allergy status to penicillin; Z88.1 Allergy status to other antibiotic agents; Z91.013 Allergy to seafood
CPT/HCPCS: 36415; 71046; 72128; 72131; 80053; 82150; 84484; 85025; 85379; 93005; 99285

== ENCOUNTER 2017-07-12 04:28 | Emergency (ER) | payer MEDICARE, MEDICAID ==
[2017-07-12] MEDS ORDERED: Ketorolac 60 MG/2 ML SDV IM ONE (04:48)
[2017-07-12] MEDS ORDERED: Ondansetron 4 MG/2 ML SDV IVPUSH ONE (05:31)
[2017-07-12] MEDS ORDERED: Morphine 4 MG/ML Syringe IVPUSH ONE (05:31)
--- NOTE | 2017-07-12 05:32 | EDM.PDOC ---
ED HPI GENERAL MEDICAL PROBLEM - General Chief Complaint: Lower Extremity Injury/Pain Stated Complaint: BROKEN ARM Time Seen by Provider: 07/12/17 05:27 Source of Information: Reports: Patient History Limitations: Reports: No Limitations - History of Present Illness INITIAL COMMENTS - FREE TEXT/NARRATIVE: c/o R wrist pain pt fell at 9p in her kitchen, pain in R wrist, tried to wait until AM but pain too much lives alone R handed Treatments RECOVERER: Reports: Acetaminophen, Cold Therapy R wrist Pain Score (Numeric/FACES): 10 - Related Data Home Meds: Home Meds Aspirin [Halfprin] 81 mg PO DAILY 12/10/15 [History] Calcium Carbonate/Vitamin D3 [Calcium 600 + Vit D 400 Softgl] 2 each PO DAILY [History] Cholecalciferol (Vitamin D3) [Vitamin D3] 2,000 unit PO DAILY 12/10/15 [History] Cyanocobalamin (Vitamin B12) [Vitamin B12] 1,000 mcg PO DAILY 12/10/15 [History] Dorzolamide HCl/Timolol Maleat [Cosopt Eye Drops] 1 drop EYEBOTH BID 12/10/15 [ History] Escitalopram [Lexapro] 40 mg PO DAILY 12/10/15 [History] Gabapentin [Neurontin] 600 mg PO TID 12/10/15 [History] Multivitamin [Daily Multiple Vitamin] 1 tab PO DAILY 12/10/15 [History] Nortriptyline 50 mg PO DAILY 12/10/15 [History] Omeprazole 40 mg PO DAILY 12/10/15 [History] Ondansetron [Zofran ODT] 4 mg PO TID PRN 12/10/15 [History] Oxybutynin [Oxybutynin ER] 10 mg PO DAILY 12/10/15 [History] Simvastatin [Zocor] 20 mg PO DAILY 12/10/15 [History] clonazePAM [Clonazepam] 1 mg PO BID PRN 12/10/15 [History] sulfaSALAzine 500 mg PO QID 12/10/15 [History] Acetaminophen [Tylenol] 325 mg PO Q4HR PRN 11/09/16 [History] Carboxymethylcellulose Sodium [Refresh Tears] 1 drop EYEBOTH TID PRN 11/09/16 [ History] Cranberry Extract [Cranberry] 1,000 mg PO DAILY 11/09/16 [History] Ezetimibe [Zetia] 5 mg PO DAILY 11/09/16 [History] Polyethylene Glycol 3350 [MiraLAX] 17 gm PO DAILY PRN 11/09/16 [History] Potassium Chloride [Klor-Con M20] 20 meq PO DAILY 11/09/16 [History] Vitamin B Complex 1 each PO DAILY 11/09/16 [History] Pregabalin [Lyrica] 100 mg PO BID #30 cap 04/16/17 [Rx] Ascorbate Calcium [Vitamin C] 1,000 mg PO DAILY 07/12/17 [History] Past Medical History HEENT History: Reports: Cataract, Hard of Hearing Cardiovascular History: Reports: High Cholesterol Respiratory History: Reports: Other (See Below) 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 Gastrointestinal History: Reports: Chronic Constipation, GERD, Irritable Bowel Syndrome Genitourinary History: Reports: Renal Calculus 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 , Other OB/BYN History: VIII, PARA V ECTOPIC PREGNANCYX 1, AB II Musculoskeletal History: Reports: Arthritis Neurological History: Reports: None Psychiatric History: Reports: Anxiety, Depression Endocrine/Metabolic History: Reports: None Hematologic History: Reports: Anemia Oncologic (Cancer) History: Reports: None - Infectious Disease History Infectious Disease History: Reports: Chicken Pox, Influenza, Measles, Mumps - Past Surgical History Head Surgeries/Procedures: Reports: Other (See Below) HEENT Surgical History: Reports: Cataract Surgery Other HEENT Surgeries/Procedures: BILATERAL PHACO IOL POST OP LASER BOTH EYES. Cardiovascular Surgical History: Reports: None GI Surgical History: Reports: Cholecystectomy, Other (See Below) Other GI Surgeries/Procedures: SURGERY FOR GASTRIC ULCER. VAGUE, CANNOT REMEMBER EXACT PROCEDURES. Female Surgical History: Reports: None Musculoskeletal Surgical History: Reports: None Social & Family History - Family History Family Medical History: Unobtainable - Caffeine Use Caffeine Use: Reports: Coffee Review of Systems - Review of Systems Review Of Systems: See Below Constitutional: Reports: No Symptoms Eyes: Reports: No Symptoms Ears: Reports: No Symptoms Nose: Reports: No Symptoms Mouth/Throat: Reports: No Symptoms Respiratory: Reports: No Symptoms Cardiovascular: Reports: No Symptoms GI/Abdominal: Reports: No Symptoms Genitourinary: Reports: No Symptoms Musculoskeletal: Reports: Other (R wrist pain) Skin: Reports: No Symptoms Neurological: Reports: No Symptoms Psychiatric: Reports: No Symptoms ED EXAM, GENERAL - Physical Exam Exam: See Below Exam Limited By: No Limitations General Appearance: Alert, WD/WN, Mild Distress Head: Atraumatic, Normocephalic Neck: Normal Inspection, Supple, Non-Tender, Full Range of Motion Respiratory/Chest: No Respiratory Distress, Normal Breath Sounds Cardiovascular: Regular Rate, Rhythm Extremities: Other (R wrist with deformity, moves all fingers, LT intact, good cap refill, 1+ radial/ulnar pulses, some swell at wrist, no ecchymosis) Neurological: Alert, Oriented, CN II-XII Intact, Normal Cognition, No Motor/ Sensory Deficits Psychiatric: Normal Affect, Normal Mood Lymphatic: No Adenopathy Course - Vital Signs Last Recorded V/S: Last Vital Signs Temp 36.6 C 07/12/17 04:30 Pulse 77 07/12/17 04:30 Resp 18 07/12/17 04:30 BP 131/68 07/12/17 04:30 Pulse Ox 99 07/12/17 04:30 - Orders/Labs/Meds Orders: Active Orders 24 hr Category Date Time Status Forearm 2V Rt [CR] Stat Exams 07/12/17 05:10 Taken Wrist Comp Min 3V Rt [CR] Stat Exams 07/12/17 04:45 Taken Sodium Chloride 0.9% [Saline Flush] Med 07/12/17 05:54 Active 10 ml FLUSH ASDIRECTED PRN Peripheral IV Insertion Adult [OM.PC] Routine Oth 07/12/17 05:54 Ordered Medication Orders Sodium Chloride (Saline Flush) 10 ml FLUSH ASDIRECTED PRN PRN Reason: Keep Vein Open Last Admin: 07/12/17 05:52 Dose: 10 ml Meds: Medications Generic Name Dose Route Start Last Admin Trade Name Freq PRN Reason Stop Dose Admin Sodium Chloride 10 ml 07/12/17 05:54 07/12/17 05:52 Saline Flush FLUSH 10 ml ASDIRECTED PRN Administration Keep Vein Open Discontinued Medications Generic Name Dose Route Start Last Admin Trade Name Freq PRN Reason Stop Dose Admin Ketorolac Tromethamine 60 mg 07/12/17 04:48 07/12/17 04:57 Toradol IM 07/12/17 04:49 60 mg ONETIME ONE Administration Morphine Sulfate 4 mg 07/12/17 05:31 Morphine IVPUSH 07/12/17 05:32 ONETIME ONE Morphine Sulfate 4 mg 07/12/17 05:42 07/12/17 05:52 Morphine IVPUSH 07/12/17 05:43 4 mg ONETIME ONE Administration Ondansetron HCl 4 mg 07/12/17 05:31 07/12/17 05:54 Zofran IVPUSH 07/12/17 05:32 4 mg ONETIME ONE Administration - Re-Assessments/Exams Free Text/Narrative Re-Assessment/Exam: 07/12/17 05:33 XR R wrist with 100% displacement of distal radius, articular surface appears intact, ulna appears intact will transfer to [facility] ED for ortho eval and reduction Free Text/Narrative Re-Assessment/Exam: 07/12/17 05:47 d/w Dr Bhatia at [facility] ED who accepted pt in transfer, images have been pushed splint placed Departure - Departure Time of Disposition: 05:45 Disposition: DC/Tfer to Acute Hospital 02 Condition: Good Clinical Impression: Closed fracture of right distal radius - Discharge Information Referrals: Devendra Santos MD [Primary Care Provider] - Forms: ED Department Discharge - My Orders Last 24 Hours: My Active Orders 07/12/17 04:45 Wrist Comp Min 3V Rt [CR] Stat 07/12/17 05:10 Forearm 2V Rt [CR] Stat 07/12/17 05:54 Sodium Chloride 0.9% [Saline Flush] 10 ml FLUSH ASDIRECTED PRN Peripheral IV Insertion Adult [OM.PC] Routine - Assessment/Plan Last 24 Hours: My Active Orders 07/12/17 04:45 Wrist Comp Min 3V Rt [CR] Stat 07/12/17 05:10 Forearm 2V Rt [CR] Stat 07/12/17 05:54 Sodium Chloride 0.9% [Saline Flush] 10 ml FLUSH ASDIRECTED PRN Peripheral IV Insertion Adult [OM.PC] Routine
[2017-07-12] MEDS ORDERED: Morphine 10 MG/ML Syringe IVPUSH ONE (05:42)
[2017-07-12] MEDS ORDERED: Sodium Chloride 0.9% 10 ML Syringe FLUSH PRN (05:54)
[2017-07-12 06:59] VITALS: BP 134/59
--- NOTE | 2017-07-12 11:49 | CR ---
INDICATION: Fall, deformity right wrist. RIGHT FOREARM: Two views of the right forearm were obtained portable and revealed the Colles fracture noted on right wrist x-ray with significant deformity. No other bone or joint abnormality was seen. PUSHPAD
--- NOTE | 2017-07-12 11:51 | CR ---
INDICATION: Fall, deformity right wrist. RIGHT WRIST: Three portable views of the right wrist were obtained 07/12/2017 and revealed a transverse comminuted fracture through the distal radial metaphysis with marked deformity, there being posterior offset of the distal radial fracture fragment the width of the shaft, as well as approximately 12 mm lateral offset of the distal fracture fragment of the radius. There is medial angulation at the radial fracture site also. An ulnar fracture is also seen with offset of 12 mm laterally of the ulnar styloid chip fracture fragment. Mild degenerative changes are noted at the navicular multangular joints. IMPRESSION: Colles fracture with significant deformity. MTDD
== END 2017-07-12 06:28 ==
LOC: FB.ED 04:28
DX: S52.501A Unspecified fracture of the lower end of right radius, initial encounter for closed fracture (principal); E78.00 Pure hypercholesterolemia, unspecified; K21.9 Gastro-esophageal reflux disease without esophagitis; F41.9 Anxiety disorder, unspecified; F32.9 Major depressive disorder, single episode, unspecified; W19.XXXA Unspecified fall, initial encounter; Z79.899 Other long term (current) drug therapy; Z87.442 Personal history of urinary calculi; Z79.82 Long term (current) use of aspirin; Y92.000 Kitchen of unspecified non-institutional (private) residence as the place of occurrence of the external cause
CPT/HCPCS: 29125; 73090; 73110; 96372; 96374; 96375; 99284; J1885; J2270; J2405; J7050

== ENCOUNTER 2017-10-27 21:59 | Emergency (ER) | payer MEDICARE, MEDICAID ==
[2017-10-27] MEDS ORDERED: Acetaminophen/oxyCODONE 325-5 MG Tab PO ONE (22:22)
--- NOTE | 2017-10-27 22:28 | EDM.PDOC ---
ED HPI GENERAL MEDICAL PROBLEM - General Chief Complaint: Upper Extremity Injury/Pain Stated Complaint: RT SHOULDER PAIN Time Seen by Provider: 10/27/17 22:23 Source of Information: Reports: Patient History Limitations: Reports: No Limitations - History of Present Illness INITIAL COMMENTS - FREE TEXT/NARRATIVE: Developed right upper extremity pain 1 hour ago, denies injury. Patient is s/p ORIF right distal radius fracture 07/2017. There were apparently some complications with the surgery, the patient had a total of 5 surgeries on the arm during the 18 day hospitalization. Patient states pain has increased to the hand and wrist over the last hour radiating to right shoulder. Pain is worse with movement. Also having numbness to the fingers of the right hand. 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 - Related Data Allergies Allergy/AdvReac Type Severity Reaction Status Date / Time ciprofloxacin [From Cipro] Allergy Rash Verified 10/27/17 22:08 dexamethasone Allergy Cannot Verified 10/27/17 22:08 Remember hydrocodone Allergy Cannot Verified 10/27/17 22:08 Remember neomycin Allergy Cannot Verified 10/27/17 22:08 Remember Penicillins Allergy Rash Verified 10/27/17 22:08 polymyxin B Allergy Cannot Verified 10/27/17 22:08 Remember propoxyphene Allergy Cannot Verified 10/27/17 22:08 Remember shellfish derived Allergy Difficulty Verified 10/27/17 22:08 Swallowing tramadol Allergy Rash Verified 10/27/17 22:08 Home Meds: Home Meds Aspirin [Halfprin] 81 mg PO DAILY 12/10/15 [History] Calcium Carbonate/Vitamin D3 [Calcium 600 + Vit D 400 Softgl] 2 each PO DAILY [History] Cholecalciferol (Vitamin D3) [Vitamin D3] 2,000 unit PO DAILY 12/10/15 [History] Cyanocobalamin (Vitamin B12) [Vitamin B12] 1,000 mcg PO DAILY 12/10/15 [History] Dorzolamide HCl/Timolol Maleat [Cosopt Eye Drops] 1 drop EYEBOTH BID 12/10/15 [ History] Escitalopram [Lexapro] 40 mg PO DAILY 12/10/15 [History] Gabapentin [Neurontin] 600 mg PO TID 12/10/15 [History] Multivitamin [Daily Multiple Vitamin] 1 tab PO DAILY 12/10/15 [History] Nortriptyline 50 mg PO DAILY 12/10/15 [History] Omeprazole 40 mg PO DAILY 12/10/15 [History] Ondansetron [Zofran ODT] 4 mg PO TID PRN 12/10/15 [History] Oxybutynin [Oxybutynin ER] 10 mg PO DAILY 12/10/15 [History] Simvastatin [Zocor] 20 mg PO DAILY 12/10/15 [History] clonazePAM [Clonazepam] 1 mg PO BID PRN 12/10/15 [History] sulfaSALAzine 500 mg PO QID 12/10/15 [History] Carboxymethylcellulose Sodium [Refresh Tears] 1 drop EYEBOTH TID PRN 11/09/16 [ History] Cranberry Extract [Cranberry] 1,000 mg PO DAILY 11/09/16 [History] Ezetimibe [Zetia] 5 mg PO DAILY 11/09/16 [History] Polyethylene Glycol 3350 [MiraLAX] 17 gm PO DAILY PRN 11/09/16 [History] Potassium Chloride [Klor-Con M20] 20 meq PO DAILY 11/09/16 [History] Vitamin B Complex 1 each PO DAILY 11/09/16 [History] Pregabalin [Lyrica] 100 mg PO BID #30 cap 04/16/17 [Rx] Ascorbate Calcium [Vitamin C] 1,000 mg PO DAILY 07/12/17 [History] Acetaminophen/oxyCODONE [Percocet 325-5 MG] 1 each PO Q6H PRN #10 tab 10/27/17 [ Rx] Past Medical History HEENT History: Reports: Cataract, Hard of Hearing Cardiovascular History: Reports: High Cholesterol Respiratory History: Reports: Other (See Below) Other Respiratory History: RESIDENTIAL SMOKER Gastrointestinal History: Reports: Chronic Constipation, GERD, Irritable Bowel Syndrome Genitourinary History: Reports: Renal Calculus 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 , 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 History: VIII, PARA V ECTOPIC PREGNANCYX 1, AB II Musculoskeletal History: Reports: Arthritis Neurological History: Reports: None Psychiatric History: Reports: Anxiety, Depression Endocrine/Metabolic History: Reports: None Hematologic History: Reports: Anemia Oncologic (Cancer) History: Reports: None - Infectious Disease History Infectious Disease History: Reports: Chicken Pox, Influenza, Measles, Mumps - Past Surgical History Head Surgeries/Procedures: Reports: Other (See Below) HEENT Surgical History: Reports: Cataract Surgery Other HEENT Surgeries/Procedures: BILATERAL PHACO IOL POST OP LASER BOTH EYES. Cardiovascular Surgical History: Reports: None GI Surgical History: Reports: Cholecystectomy, Other (See Below) Other GI Surgeries/Procedures: SURGERY FOR GASTRIC ULCER. VAGUE, CANNOT REMEMBER EXACT PROCEDURES. Female Surgical History: Reports: None Musculoskeletal Surgical History: Reports: None Social & Family History - Family History Family Medical History: Unobtainable - Tobacco Use Smoking Status *Q: Current Every Day Smoker Tobacco Use Within Last Twelve Months: Cigarettes - Caffeine Use Caffeine Use: Reports: Coffee Review of Systems - Review of Systems Review Of Systems: See Below Constitutional: Reports: No Symptoms Eyes: Reports: No Symptoms Ears: Reports: No Symptoms Nose: Reports: No Symptoms Mouth/Throat: Reports: No Symptoms Respiratory: Reports: No Symptoms Cardiovascular: Reports: No Symptoms GI/Abdominal: Reports: No Symptoms Genitourinary: Reports: No Symptoms Musculoskeletal: Reports: Shoulder Pain (right), Arm Pain (right), Hand Pain ( right) Skin: Reports: No Symptoms Neurological: Reports: Numbness (right fingers) Psychiatric: Reports: No Symptoms ED EXAM, GENERAL - Physical Exam Exam: See Below Exam Limited By: No Limitations General Appearance: Alert, WD/WN, No Apparent Distress Ears: Normal External Exam Nose: Normal Inspection Throat/Mouth: Normal Inspection, No Airway Compromise Head: Atraumatic, Normocephalic Neck: Normal Inspection Respiratory/Chest: No Respiratory Distress, Lungs Clear, Normal Breath Sounds Cardiovascular: Regular Rate, Rhythm, No Edema, No Murmur Peripheral Pulses: 2+: Radial (R) Neurological: Alert, Other (Decreased sensation to light touch to tips of right 3rd, 4th and 5th fingers, motor strenghth intact, 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, no swelling, moderate tenderness to right hand, forearm, and upper arm) Psychiatric: Normal Affect, Normal Mood Skin Exam: Warm, Dry, Intact, Normal Color Course - Orders/Labs/Meds Orders: Active Orders 24 hr Category Date Time Status Splinting [RC] ASDIRECTED Care 10/27/17 23:21 Ordered Wrist Comp Min 3V Rt [CR] Stat Exams 10/27/17 22:22 Taken Meds: Medications Discontinued Medications Generic Name Dose Route Start Last Admin Trade Name Freq PRN Reason Stop Dose Admin Oxycodone/Acetaminophen 1 tab 10/27/17 22:22 10/27/17 23:03 Percocet 325-5 Mg PO 10/27/17 22:23 1 tab ONETIME ONE Administration - Radiology Interpretation Free Text/Narrative:: Right Wrist XR: Hardware intact. Distal radius fracture non-union. - Re-Assessments/Exams Free Text/Narrative Re-Assessment/Exam: 10/27/17 23:25 Symptoms have improved. Departure - Departure Time of Disposition: 23:25 Disposition: Home, Self-Care 01 Condition: Good Clinical Impression: Wrist pain, right, Fracture, nonunion - Discharge Information *PRESCRIPTION DRUG MONITORING PROGRAM REVIEWED*: Yes *COPY OF PRESCRIPTION DRUG MONITORING REPORT IN PATIENT NATALIA: No Prescriptions: Acetaminophen/oxyCODONE [Percocet 325-5 MG] 1 each PO Q6H PRN #10 tab PRN Reason: Pain Instructions: Pain Medicine Instructions, [id number] Referrals: Devendra Santos MD [Primary Care Provider] - Rad Ibarra MD [Ordering Only Provider] - Forms: ED Department Discharge Additional Instructions: Follow up with Dr. Ibarra 2-3 days. Fill prescription for Percocet and take as directed. Avoid NSAIDS (Ibuprofen, Naproxen) and smoking cigarettes as these delay healing of fractures. - My Orders Last 24 Hours: My Active Orders 10/27/17 22:22 Wrist Comp Min 3V Rt [CR] Stat 10/27/17 23:21 Splinting [RC] ASDIRECTED - Assessment/Plan Last 24 Hours: My Active Orders 10/27/17 22:22 Wrist Comp Min 3V Rt [CR] Stat 10/27/17 23:21 Splinting [RC] ASDIRECTED
[2017-10-27 23:27] VITALS: BP 124/70
--- NOTE | 2017-11-01 08:15 | CR ---
INDICATION: Pain, followup ORIF radial fracture. RIGHT WRIST: Three views of the right wrist were obtained 10/27/2017 and compared with 07/12/2017. Post ORIF changes are noted with a plate utilizing 7 screws fixing radial fracture fragments with slight separation of those fracture fragments. Endosteal sclerosis is noted, compatible with interval progress in healing. Periosteal new bone formation is also seen, compatible with interval progress in healing at the radial fracture site. Apparent ulnar styloid chip fracture fragment is unchanged in position with the chip fracture fragment from the ulna, as previously. A definite complicating process was not identified. MTDD
== END 2017-10-27 23:55 | disposition home or self-care (01) ==
LOC: FB.ED 21:59
DX: S52.501K Unspecified fracture of the lower end of right radius, subsequent encounter for closed fracture with nonunion (principal); E78.00 Pure hypercholesterolemia, unspecified; F17.210 Nicotine dependence, cigarettes, uncomplicated; Z88.1 Allergy status to other antibiotic agents; Z88.8 Allergy status to other drugs, medicaments and biological substances; Z79.82 Long term (current) use of aspirin; Z79.899 Other long term (current) drug therapy; Z96.698 Presence of other orthopedic joint implants; X58.XXXD Exposure to other specified factors, subsequent encounter
CPT/HCPCS: 73110-RT; 99283; A9270-GY

== ENCOUNTER 2018-04-10 11:52 | Inpatient (IN) | payer MEDICARE, MEDICAID ==
--- NOTE | 2018-04-10 16:18 | PCM.HP ---
H&P History of Present Illness - General Date of Service: 04/10/18 - History of Present Illness Initial Comments - Free Text/Narative: Karen Sutton is a 62-year-old female with past medical history of mood disorder, hyperlipidemia, chronic neuropathic pain, GERD, glaucoma, and fibromyalgia admitted on 04/06/2018 for an elective left hip arthroplasty with Dr. Ferrer due to primary osteoarthritis. Patient tolerated procedure well. she was discharged today from [facility] and admitted her for swing bed. Per chart review it was noticed that patient's pain wasdifficult to control due to the patient's chronic pain.Patient developed some expected post-op anemia with Hgb of 8.2, but does not require transfusion, asymptomatic. On day of discharge noted some redness, swelling, and warmth to left inner thigh, where pain describes as very painful. Redness outlined. Patient was started today on course of Bactrim due to history of MRSA x 5 days. Patient denies any chest pain , shortness of breath, dizziness, nausea or vomiting. On my assessment today, patient is alert and oriented. c/o left hip pain of 7/10, requesting pain medication. last BM per patient was 3 days ago. - Related Data Allergies/Adverse Reactions: Allergies Allergy/AdvReac Type Severity Reaction Status Date / Time ciprofloxacin [From Cipro] Allergy Rash Verified 10/27/17 22:08 dexamethasone Allergy Cannot Verified 10/27/17 22:08 Remember hydrocodone Allergy Cannot Verified 10/27/17 22:08 Remember neomycin Allergy Cannot Verified 10/27/17 22:08 Remember Penicillins Allergy Rash Verified 10/27/17 22:08 polymyxin B Allergy Cannot Verified 10/27/17 22:08 Remember propoxyphene Allergy Cannot Verified 10/27/17 22:08 Remember shellfish derived Allergy Difficulty Verified 10/27/17 22:08 Swallowing tramadol Allergy Rash Verified 10/27/17 22:08 Home Medications: Home Meds Aspirin [Halfprin] 81 mg PO DAILY 12/10/15 [History] Calcium Carbonate/Vitamin D3 [Calcium 600 + Vit D 400 Softgl] 2 each PO WITHBREAKFAST 12/10/15 [History] Cholecalciferol (Vitamin D3) [Vitamin D3] 2,000 unit PO DAILY 12/10/15 [History] Dorzolamide HCl/Timolol Maleat [Cosopt Eye Drops] 1 drop EYEBOTH BID 12/10/15 [ History] Escitalopram [Lexapro] 40 mg PO DAILY 12/10/15 [History] Gabapentin [Neurontin] 600 mg PO TID PRN 12/10/15 [History] Nortriptyline 50 mg PO DAILY 12/10/15 [History] Oxybutynin [Oxybutynin ER] 10 mg PO DAILY 12/10/15 [History] Simvastatin [Zocor] 20 mg PO DAILY 12/10/15 [History] clonazePAM [Clonazepam] 1 mg PO BID 12/10/15 [History] sulfaSALAzine 500 mg PO QID 12/10/15 [History] Carboxymethylcellulose Sodium [Refresh Tears] 1 drop EYEBOTH QID 11/09/16 [ History] Ezetimibe [Zetia] 5 mg PO DAILY 11/09/16 [History] Polyethylene Glycol 3350 [MiraLAX] 17 gm PO DAILY PRN 11/09/16 [History] Potassium Chloride [Klor-Con M20] 20 meq PO DAILY 11/09/16 [History] Ascorbate Calcium [Vitamin C] 1,000 mg PO DAILY 07/12/17 [History] Aspirin [Ecotrin] 325 mg PO BID 04/10/18 [History] Calcium Carbonate [Calcium] 500 mg PO Q4H PRN 04/10/18 [History] Lactulose 20 gm PO DAILY PRN 04/10/18 [History] Linaclotide [Linzess] 145 mcg PO DAILY PRN 04/10/18 [History] Multivitamin with Minerals [Multivitamins with Minerals] 1 tab PO DAILY [History] Omeprazole 20 mg PO DAILY 04/10/18 [History] Sennosides/Docusate Sodium [Senna-S] 1 tab PO BID PRN 04/10/18 [History] Sulfamethoxazole/Trimethoprim [Bactrim Ds Tablet] 1 tab PO BID 04/10/18 [History ] diphenhydrAMINE [Benadryl] 50 mg PO BEDTIME PRN 04/10/18 [History] oxyCODONE 5 - 10 mg PO Q3H PRN 04/10/18 [History] traMADol [Ultram] 50 - 100 mg PO Q6H PRN 04/10/18 [History] Past Medical History HEENT History: Reports: Cataract, Hard of Hearing, Impaired Vision Cardiovascular History: Reports: High Cholesterol Respiratory History: Reports: Other (See Below) Other Respiratory History: [facility] Gastrointestinal History: Reports: Chronic Constipation, GERD, Irritable Bowel Syndrome Genitourinary History: Reports: Renal Calculus [employer] History: Reports: Ectopic , Other OB/BYN History: VIII, PARA V ECTOPIC PREGNANCYX 1, AB II Musculoskeletal History: Reports: Arthritis Neurological History: Reports: None Psychiatric History: Reports: Anxiety, Depression Endocrine/Metabolic History: Reports: None Hematologic History: Reports: Anemia Oncologic (Cancer) History: Reports: None - Infectious Disease History Infectious Disease 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 Cardiovascular Surgical History: Reports: None GI Surgical History: Reports: Cholecystectomy, Other (See Below) Other GI Surgeries/Procedures: SURGERY FOR GASTRIC ULCER. VAGUE, CANNOT REMEMBER EXACT PROCEDURES. Female Surgical History: Reports: None Musculoskeletal Surgical History: Reports: None Social & Family History - Family History Family Medical History: Unobtainable - Caffeine Use Caffeine Use: Reports: Coffee H&P Review of Systems - Review of Systems: Review Of Systems: See Below General: Reports: No Symptoms HEENT: Reports: No Symptoms Pulmonary: Reports: No Symptoms Cardiovascular: Reports: No Symptoms Gastrointestinal: Reports: Abdominal Pain, Constipation Genitourinary: Reports: Retention Musculoskeletal: Reports: Other (left hip pain ) Skin: Reports: Erythema (left inner thight.) Psychiatric: Reports: Anxiety Neurological: Reports: Headache Exam - Exam Exam: See Below - Vital Signs Vital Signs: Vital Signs - 24 hr 04/10/18 16:13 Temperature [ 36.6 C Oral] Pulse, 82 Peripheral [ Left Pulse Oximetry] Respiratory 16 Rate Blood Pressure 95/50 L [Right Upper Arm] O2 Sat by Pulse 95 Oximetry Weight: 75.098 kg - Exam General: Alert, Oriented, Cooperative HEENT: PERRLA Neck: Supple Lungs: Clear to Auscultation, Normal Respiratory Effort Cardiovascular: Regular Rate, Regular Rhythm GI/Abdominal Exam: Normal Bowel Sounds, Soft, Tender Extremities: Normal Inspection, No Pedal Edema, Other (tender left hip ) Skin: Warm, Other (redness noted on the left inner thight ) Neurological: Sensation Intact Neuro Extensive - Mental Status: Alert, Oriented x3 Psychiatric: Alert - Problem List (1) Osteoarthritis of left hip SNOMED Code(s): 781218297759054 ICD Code: M16.12 - UNILATERAL PRIMARY OSTEOARTHRITIS, LEFT HIP Status: Acute Current Visit: Yes (2) Failure of left total hip arthroplasty SNOMED Code(s): 024451584, 483305803 ICD Code: T84.011A - BROKEN INTERNAL LEFT HIP PROSTHESIS, INITIAL ENCOUNTER Status: Acute Current Visit: Yes (3) GERD (gastroesophageal reflux disease) SNOMED Code(s): 490924259 ICD Code: K21.9 - GASTRO-ESOPHAGEAL REFLUX DISEASE WITHOUT ESOPHAGITIS Status: Acute Current Visit: Yes (4) Hyperlipemia SNOMED Code(s): 60255870 ICD Code: E78.5 - HYPERLIPIDEMIA, UNSPECIFIED Status: Acute Current Visit : Yes (5) Fibromyalgia SNOMED Code(s): 097657225 ICD Code: M79.7 - FIBROMYALGIA Status: Acute Current Visit: Yes (6) Anxiety and depression SNOMED Code(s): 51546784 ICD Code: F41.9 - ANXIETY DISORDER, UNSPECIFIED; F32.9 - MAJOR DEPRESSIVE DISORDER, SINGLE EPISODE, UNSPECIFIED Status: Acute Current Visit: Yes Problem List Initiated/Reviewed/Updated: Yes Orders Last 24hrs: # Patient admitted to swing bed s/p left total hip arthroplasty on 04/06. Patient has a history of chronic pain, hard to control her pain. will schedule tylenol and prn Oxy. will also schedule stool softener and prn given the constipation insetting of pain medication # will do basic labs CBC, CMP. # continue home medication for anxiety, hyperlipemia and fibromyalgia
[2018-04-10] MEDS ORDERED: LINACLOTIDE 145 MCG PO PRN (17:05)
[2018-04-10] MEDS ORDERED: Lactulose Soln 10 GM/15 ML 15 ML UD Cup PO PRN (17:05)
[2018-04-10] MEDS ORDERED: Polyethylene Glycol 3350 Powder 17 GM Packet PO PRN (17:05)
[2018-04-10] MEDS ORDERED: Gabapentin 600 MG Tab PO PRN (17:05)
[2018-04-10] MEDS ORDERED: Sulfamethoxazole/Trimethoprim 800-160 MG Tab PO SCH ×2 (17:15→21:00)
[2018-04-10] MEDS: sulfaSALAzine 500 MG Tab PO SCH ×2 (18:34→20:51)
[2018-04-10] MEDS: oxyCODONE 5 MG Tab PO PRN ×2 (18:48→22:37)
[2018-04-10] MEDS ORDERED: Calcium Carbonate 500 MG Tab.Chew PO PRN (19:00)
[2018-04-10] MEDS: ClonazePAM 1 MG Tab PO SCH (20:51)
[2018-04-10] MEDS: Carboxymethylcellulose Sodium 0.5% Ophth Soln 15 ML Bottle EYEBOTH SCH (20:51)
[2018-04-10] MEDS: Aspirin 325 MG Tab.EC PO SCH (20:51)
[2018-04-10] MEDS: Dorzolamide/Timolol 2%-0.5% Ophth Soln 10 ML Bottle EYEBOTH SCH (20:51)
[2018-04-10] MEDS: Sulfamethoxazole/Trimethoprim 800-160 MG Tab PO SCH (20:51)
[2018-04-11] MEDS: oxyCODONE 5 MG Tab PO PRN ×5 (02:24→23:31)
[2018-04-11] MEDS: Pantoprazole 40 MG Tab.CR PO SCH (06:37)
[2018-04-11] MEDS: Aspirin 325 MG Tab.EC PO SCH ×2 (08:24→20:21)
[2018-04-11] MEDS: Sulfamethoxazole/Trimethoprim 800-160 MG Tab PO SCH ×2 (08:24→20:22)
[2018-04-11] MEDS: sulfaSALAzine 500 MG Tab PO SCH ×4 (08:24→20:22)
[2018-04-11] MEDS: Calcium Carbonate/Vitamin D3 1250 MG-200 Unit Tab PO SCH (08:53)
[2018-04-11] MEDS: Oxybutynin 5 MG Tab.ER PO SCH (08:54)
[2018-04-11] MEDS: Nortriptyline 25 MG Cap PO SCH (08:54)
[2018-04-11] MEDS: Multivitamins,Therapeutic Tab PO SCH (08:54)
[2018-04-11] MEDS: Escitalopram 20 MG Tab PO SCH (08:54)
[2018-04-11] MEDS: Potassium Chloride 20 MEQ Tab.ER PO SCH (08:54)
[2018-04-11] MEDS: Cholecalciferol (Vitamin D3) 1,000 Unit Tab PO SCH (08:54)
[2018-04-11] MEDS: Ascorbic Acid 500 MG Tab PO SCH (08:54)
[2018-04-11] MEDS: Ezetimibe 10 MG Tab PO SCH (08:59)
[2018-04-11] MEDS: Carboxymethylcellulose Sodium 0.5% Ophth Soln 15 ML Bottle EYEBOTH SCH ×4 (08:59→20:21)
[2018-04-11] MEDS: Dorzolamide/Timolol 2%-0.5% Ophth Soln 10 ML Bottle EYEBOTH SCH ×2 (09:01→20:20)
[2018-04-11] MEDS: ClonazePAM 1 MG Tab PO SCH ×2 (09:14→20:21)
[2018-04-11] MEDS: Gabapentin 600 MG Tab PO SCH (20:21)
[2018-04-12] MEDS: Pantoprazole 40 MG Tab.CR PO SCH (07:33)
[2018-04-12] MEDS: Calcium Carbonate/Vitamin D3 1250 MG-200 Unit Tab PO SCH (08:35)
[2018-04-12] MEDS: Dorzolamide/Timolol 2%-0.5% Ophth Soln 10 ML Bottle EYEBOTH SCH ×2 (08:36→20:07)
[2018-04-12] MEDS: Aspirin 325 MG Tab.EC PO SCH ×2 (08:37→20:08)
[2018-04-12] MEDS: Potassium Chloride 20 MEQ Tab.ER PO SCH (08:37)
[2018-04-12] MEDS: Escitalopram 20 MG Tab PO SCH (08:38)
[2018-04-12] MEDS: Nortriptyline 25 MG Cap PO SCH (08:38)
[2018-04-12] MEDS: Oxybutynin 5 MG Tab.ER PO SCH (08:38)
[2018-04-12] MEDS: Carboxymethylcellulose Sodium 0.5% Ophth Soln 15 ML Bottle EYEBOTH SCH ×4 (08:39→20:08)
[2018-04-12] MEDS: Sulfamethoxazole/Trimethoprim 800-160 MG Tab PO SCH ×2 (08:39→20:09)
[2018-04-12] MEDS: sulfaSALAzine 500 MG Tab PO SCH ×4 (08:40→20:09)
[2018-04-12] MEDS: Ascorbic Acid 500 MG Tab PO SCH (08:40)
[2018-04-12] MEDS: Multivitamins,Therapeutic Tab PO SCH (08:40)
[2018-04-12] MEDS: Cholecalciferol (Vitamin D3) 1,000 Unit Tab PO SCH (08:41)
[2018-04-12] MEDS: Ezetimibe 10 MG Tab PO SCH (08:41)
[2018-04-12] MEDS: ClonazePAM 1 MG Tab PO SCH ×2 (08:46→20:08)
[2018-04-12] MEDS: Gabapentin 600 MG Tab PO SCH ×3 (08:46→20:08)
[2018-04-12] MEDS: oxyCODONE 5 MG Tab PO PRN ×4 (09:39→23:12)
--- NOTE | 2018-04-12 13:51 | US ---
INDICATION: Post hip surgery, swollen thigh, question DVT. DUPLEX ULTRASOUND, LEFT LOWER EXTREMITY VEINS: Utilizing 2-D real time, duplex Doppler spectral analysis and color flow imaging, examination of the left lower extremity veins was obtained, 04/11/18 and included the common femoral vein, proximal greater saphenous vein, femoral vein, popliteal vein, posterior tibial vein, and peroneal vein. Color flow augmentation and compression appear to be normal - no evidence of deep venous thrombosis or greater saphenous vein thrombosis proximally could be identified. There was noted interstitial edema in the calf. IMPRESSION: No evidence of deep venous thrombosis. Valves appear to be competent. MTDD
[2018-04-12] MEDS ORDERED: Nicotine 21 MG/24 Hr Patch TRDERM SCH (20:00)
[2018-04-13] MEDS: diphenhydrAMINE 50 MG Cap PO PRN (00:09)
[2018-04-13] MEDS: oxyCODONE 5 MG Tab PO PRN ×5 (05:57→20:54)
[2018-04-13] MEDS: Pantoprazole 40 MG Tab.CR PO SCH (07:34)
[2018-04-13] MEDS: Calcium Carbonate/Vitamin D3 1250 MG-200 Unit Tab PO SCH (07:35)
[2018-04-13] MEDS: Carboxymethylcellulose Sodium 0.5% Ophth Soln 15 ML Bottle EYEBOTH SCH ×4 (08:39→20:22)
[2018-04-13] MEDS: Dorzolamide/Timolol 2%-0.5% Ophth Soln 10 ML Bottle EYEBOTH SCH ×2 (08:40→20:16)
[2018-04-13] MEDS: Potassium Chloride 20 MEQ Tab.ER PO SCH (08:41)
[2018-04-13] MEDS: Aspirin 325 MG Tab.EC PO SCH ×2 (08:41→20:17)
[2018-04-13] MEDS: Escitalopram 20 MG Tab PO SCH (08:42)
[2018-04-13] MEDS: Sulfamethoxazole/Trimethoprim 800-160 MG Tab PO SCH ×2 (08:44→20:19)
[2018-04-13] MEDS: Multivitamins,Therapeutic Tab PO SCH (08:44)
[2018-04-13] MEDS: sulfaSALAzine 500 MG Tab PO SCH ×4 (08:44→20:20)
[2018-04-13] MEDS: Ascorbic Acid 500 MG Tab PO SCH (08:45)
[2018-04-13] MEDS: Cholecalciferol (Vitamin D3) 1,000 Unit Tab PO SCH (08:46)
[2018-04-13] MEDS: Ezetimibe 10 MG Tab PO SCH (08:46)
[2018-04-13] MEDS: Oxybutynin 5 MG Tab.ER PO SCH (08:48)
[2018-04-13] MEDS: Nortriptyline 25 MG Cap PO SCH (08:49)
[2018-04-13] MEDS: Gabapentin 600 MG Tab PO SCH ×3 (08:58→20:55)
[2018-04-13] MEDS: ClonazePAM 1 MG Tab PO SCH ×2 (08:58→20:54)
[2018-04-13] MEDS: Nicotine 21 MG/24 Hr Patch TRDERM SCH (20:18)
[2018-04-14] MEDS: oxyCODONE 5 MG Tab PO PRN ×5 (04:13→23:17)
[2018-04-14] MEDS: Pantoprazole 40 MG Tab.CR PO SCH (08:34)
[2018-04-14] MEDS: Gabapentin 600 MG Tab PO SCH ×3 (08:34→21:40)
[2018-04-14] MEDS: Dorzolamide/Timolol 2%-0.5% Ophth Soln 10 ML Bottle EYEBOTH SCH ×2 (08:36→21:40)
[2018-04-14] MEDS: Aspirin 325 MG Tab.EC PO SCH ×2 (08:37→21:40)
[2018-04-14] MEDS: Potassium Chloride 20 MEQ Tab.ER PO SCH (08:38)
[2018-04-14] MEDS: Sulfamethoxazole/Trimethoprim 800-160 MG Tab PO SCH ×2 (08:38→21:41)
[2018-04-14] MEDS: Oxybutynin 5 MG Tab.ER PO SCH (08:38)
[2018-04-14] MEDS: Multivitamins,Therapeutic Tab PO SCH (08:38)
[2018-04-14] MEDS: Ezetimibe 10 MG Tab PO SCH (08:39)
[2018-04-14] MEDS: sulfaSALAzine 500 MG Tab PO SCH ×4 (08:39→21:41)
[2018-04-14] MEDS: Calcium Carbonate/Vitamin D3 1250 MG-200 Unit Tab PO SCH (08:39)
[2018-04-14] MEDS: Cholecalciferol (Vitamin D3) 1,000 Unit Tab PO SCH (08:39)
[2018-04-14] MEDS: Ascorbic Acid 500 MG Tab PO SCH (08:39)
[2018-04-14] MEDS: Carboxymethylcellulose Sodium 0.5% Ophth Soln 15 ML Bottle EYEBOTH SCH ×4 (08:40→21:41)
[2018-04-14] MEDS: Escitalopram 20 MG Tab PO SCH (08:40)
[2018-04-14] MEDS: Nortriptyline 25 MG Cap PO SCH (08:40)
[2018-04-14] MEDS: ClonazePAM 1 MG Tab PO SCH ×2 (08:43→21:40)
--- NOTE | 2018-04-14 13:43 | PN ---
DATE SEEN: 04/14/2018 HISTORY: Karen is a 62-year-old woman, who underwent left total hip arthroplasty by Dr. Ferrer at [facility] in [place] on 04/06/2018. She was discharged to swing bed at [facility] for recuperation on 04/10/2018. She has been receiving therapy twice per day. She still complains of pain and asks for her oxycodone every 3 hours. Activity level and progress in therapy have been excellent. She gets up and out of the chair easily without assistance. She has noted that she has had dizziness at times that preceded her hip surgery, and she states that she is drowsy in the daytime after she takes her oxycodone and clonazepam. Also of note is she is on clonazepam 1 mg b.i.d., Lexapro 40 mg daily, gabapentin 600 mg t.i.d., nortriptyline 50 mg daily. Karen has had a slightly erythematous area in the inner left thigh that she says is tender. Ink markings previously demarcating the extent of the erythema show now only a faded reddish brown area. No acute inflammation is noted. PHYSICAL EXAMINATION: GENERAL: She is alert and a good historian. HEENT: Clear. LUNGS: Clear. HEART: Regular. ABDOMEN: Soft, obese, nontender. EXTREMITIES: She has a dressing over the hip incision on the left that is clean and dry. She has comfortable internal and external rotation of the left hip and 1+ edema at the knee down to the ankle on the left side, but no calf tenderness. ASSESSMENT: Postop left total hip arthroplasty, day number 9. PLAN: I have discussed with Karen we should be working her off the narcotics. She is somewhat resistant to this, but I will decrease the oxycodone to 2.5 mg every 4 hours p.r.n. pain, and I have discussed with her she is to take this primarily before her therapy sessions. I have also added ibuprofen 600 mg t.i.d. p.r.n. pain if she needs additional pain medication. Blood pressures are reviewed and are satisfactory. Laboratory, last hemoglobin was 8 g and not in need of a transfusion. We will check labs again tomorrow. I anticipate an additional week of swing bed hospitalization and recuperation followed by discharge to her home. /[id number] JEFFRY/BROOKE
[2018-04-14] MEDS: Ibuprofen 600 MG Tab PO PRN (18:52)
[2018-04-14] MEDS: Nicotine 21 MG/24 Hr Patch TRDERM SCH (21:41)
[2018-04-15] MEDS: Pantoprazole 40 MG Tab.CR PO SCH (06:37)
[2018-04-15] MEDS: oxyCODONE 5 MG Tab PO PRN ×2 (08:18→22:11)
[2018-04-15] MEDS: Calcium Carbonate/Vitamin D3 1250 MG-200 Unit Tab PO SCH (08:21)
[2018-04-15] MEDS: Aspirin 325 MG Tab.EC PO SCH ×2 (08:22→20:01)
[2018-04-15] MEDS: Nortriptyline 25 MG Cap PO SCH (08:23)
[2018-04-15] MEDS: Potassium Chloride 20 MEQ Tab.ER PO SCH (08:23)
[2018-04-15] MEDS: Escitalopram 20 MG Tab PO SCH (08:23)
[2018-04-15] MEDS: Oxybutynin 5 MG Tab.ER PO SCH (08:25)
[2018-04-15] MEDS: Dorzolamide/Timolol 2%-0.5% Ophth Soln 10 ML Bottle EYEBOTH SCH ×2 (08:26→20:01)
[2018-04-15] MEDS: Carboxymethylcellulose Sodium 0.5% Ophth Soln 15 ML Bottle EYEBOTH SCH ×4 (08:26→20:01)
[2018-04-15] MEDS: sulfaSALAzine 500 MG Tab PO SCH ×4 (08:27→20:00)
[2018-04-15] MEDS: Multivitamins,Therapeutic Tab PO SCH (08:28)
[2018-04-15] MEDS: Sulfamethoxazole/Trimethoprim 800-160 MG Tab PO SCH (08:28)
[2018-04-15] MEDS: Ascorbic Acid 500 MG Tab PO SCH (08:28)
[2018-04-15] MEDS: Cholecalciferol (Vitamin D3) 1,000 Unit Tab PO SCH (08:29)
[2018-04-15] MEDS: Ezetimibe 10 MG Tab PO SCH (08:30)
[2018-04-15] MEDS: Gabapentin 600 MG Tab PO SCH ×3 (10:10→20:07)
[2018-04-15] MEDS: ClonazePAM 1 MG Tab PO SCH ×2 (10:10→20:01)
[2018-04-15] MEDS: Ibuprofen 600 MG Tab PO PRN (12:14)
[2018-04-15] MEDS: Nicotine 21 MG/24 Hr Patch TRDERM SCH (19:58)
[2018-04-16] MEDS: Ibuprofen 600 MG Tab PO PRN ×2 (00:25→08:06)
[2018-04-16] MEDS: oxyCODONE 5 MG Tab PO PRN ×4 (04:08→22:41)
[2018-04-16] MEDS: Pantoprazole 40 MG Tab.CR PO SCH ×2 (06:23→06:58)
[2018-04-16] MEDS: ClonazePAM 1 MG Tab PO SCH ×2 (08:06→20:57)
[2018-04-16] MEDS: Gabapentin 600 MG Tab PO SCH ×3 (08:06→20:57)
[2018-04-16] MEDS: Calcium Carbonate/Vitamin D3 1250 MG-200 Unit Tab PO SCH (08:09)
[2018-04-16] MEDS: Aspirin 325 MG Tab.EC PO SCH ×2 (08:09→20:55)
[2018-04-16] MEDS: Ezetimibe 10 MG Tab PO SCH (08:09)
[2018-04-16] MEDS: sulfaSALAzine 500 MG Tab PO SCH ×4 (08:09→20:58)
[2018-04-16] MEDS: Nortriptyline 25 MG Cap PO SCH (08:09)
[2018-04-16] MEDS: Multivitamins,Therapeutic Tab PO SCH (08:09)
[2018-04-16] MEDS: Potassium Chloride 20 MEQ Tab.ER PO SCH (08:10)
[2018-04-16] MEDS: Escitalopram 20 MG Tab PO SCH (08:10)
[2018-04-16] MEDS: Oxybutynin 5 MG Tab.ER PO SCH (08:10)
[2018-04-16] MEDS: Ascorbic Acid 500 MG Tab PO SCH (08:10)
[2018-04-16] MEDS: Cholecalciferol (Vitamin D3) 1,000 Unit Tab PO SCH (08:10)
[2018-04-16] MEDS: Dorzolamide/Timolol 2%-0.5% Ophth Soln 10 ML Bottle EYEBOTH SCH ×2 (08:11→20:54)
[2018-04-16] MEDS: Carboxymethylcellulose Sodium 0.5% Ophth Soln 15 ML Bottle EYEBOTH SCH ×4 (08:11→20:55)
[2018-04-16] MEDS: Nicotine 21 MG/24 Hr Patch TRDERM SCH (20:54)
[2018-04-17] MEDS: diphenhydrAMINE 50 MG Cap PO PRN (00:52)
[2018-04-17] MEDS: Ibuprofen 600 MG Tab PO PRN (00:52)
[2018-04-17] MEDS: Pantoprazole 40 MG Tab.CR PO SCH (06:53)
[2018-04-17] MEDS: Cholecalciferol (Vitamin D3) 1,000 Unit Tab PO SCH (09:05)
[2018-04-17] MEDS: sulfaSALAzine 500 MG Tab PO SCH ×4 (09:06→20:39)
[2018-04-17] MEDS: Dorzolamide/Timolol 2%-0.5% Ophth Soln 10 ML Bottle EYEBOTH SCH ×2 (09:07→20:38)
[2018-04-17] MEDS: Calcium Carbonate/Vitamin D3 1250 MG-200 Unit Tab PO SCH (09:07)
[2018-04-17] MEDS: Aspirin 325 MG Tab.EC PO SCH ×2 (09:08→20:38)
[2018-04-17] MEDS: Escitalopram 20 MG Tab PO SCH (09:09)
[2018-04-17] MEDS: Oxybutynin 5 MG Tab.ER PO SCH (09:09)
[2018-04-17] MEDS: Potassium Chloride 20 MEQ Tab.ER PO SCH (09:09)
[2018-04-17] MEDS: Nortriptyline 25 MG Cap PO SCH (09:09)
[2018-04-17] MEDS: Ascorbic Acid 500 MG Tab PO SCH (09:10)
[2018-04-17] MEDS: Ezetimibe 10 MG Tab PO SCH (09:10)
[2018-04-17] MEDS: Carboxymethylcellulose Sodium 0.5% Ophth Soln 15 ML Bottle EYEBOTH SCH ×4 (09:10→20:39)
[2018-04-17] MEDS: Multivitamins,Therapeutic Tab PO SCH (09:10)
[2018-04-17] MEDS: Gabapentin 600 MG Tab PO SCH ×3 (09:15→20:45)
[2018-04-17] MEDS: ClonazePAM 1 MG Tab PO SCH ×2 (09:15→20:45)
[2018-04-17] MEDS: traMADol 50 MG Tab PO PRN ×2 (11:59→20:34)
[2018-04-17] MEDS: oxyCODONE 5 MG Tab PO PRN (18:48)
[2018-04-17] MEDS: Nicotine 21 MG/24 Hr Patch TRDERM SCH (20:35)
[2018-04-18] MEDS: Ibuprofen 600 MG Tab PO PRN ×2 (04:42→11:06)
[2018-04-18] MEDS: Pantoprazole 40 MG Tab.CR PO SCH (07:01)
[2018-04-18] MEDS: traMADol 50 MG Tab PO PRN ×3 (07:46→21:04)
[2018-04-18] MEDS: Calcium Carbonate/Vitamin D3 1250 MG-200 Unit Tab PO SCH (07:48)
[2018-04-18] MEDS: Escitalopram 20 MG Tab PO SCH (09:19)
[2018-04-18] MEDS: Nortriptyline 25 MG Cap PO SCH (09:19)
[2018-04-18] MEDS: Aspirin 325 MG Tab.EC PO SCH ×2 (09:19→20:54)
[2018-04-18] MEDS: Potassium Chloride 20 MEQ Tab.ER PO SCH (09:19)
[2018-04-18] MEDS: Multivitamins,Therapeutic Tab PO SCH (09:20)
[2018-04-18] MEDS: sulfaSALAzine 500 MG Tab PO SCH (09:20)
[2018-04-18] MEDS: Ezetimibe 10 MG Tab PO SCH (09:20)
[2018-04-18] MEDS: Ascorbic Acid 500 MG Tab PO SCH (09:20)
[2018-04-18] MEDS: Cholecalciferol (Vitamin D3) 1,000 Unit Tab PO SCH (09:20)
[2018-04-18] MEDS: Carboxymethylcellulose Sodium 0.5% Ophth Soln 15 ML Bottle EYEBOTH SCH ×5 (09:21→20:53)
[2018-04-18] MEDS: Dorzolamide/Timolol 2%-0.5% Ophth Soln 10 ML Bottle EYEBOTH SCH ×2 (09:21→20:54)
[2018-04-18] MEDS: Gabapentin 600 MG Tab PO SCH (09:38)
[2018-04-18] MEDS: ClonazePAM 1 MG Tab PO SCH ×2 (09:38→21:02)
--- NOTE | 2018-04-18 10:38 | PN ---
DATE SEEN: 04/17/2018 HISTORY: Ms. Sutton is a 62-year-old woman, who is now approximately two weeks status post left total hip arthroplasty. She has been getting physical and occupational therapy and is progressing nicely. She is ambulating. She does report significant pain at times and has been taking oxycodone. There was an allergy to tramadol on her medical record. Further questioning revealed that she developed itching at one time and was not sure which med it was due to, but she subsequently has had tramadol without reaction and this will be removed from allergy list. Therapy reports adequate progress, and Ms. Sutton is requesting to go home on Tuesday, four days from now. She has been using ibuprofen alternating with oxycodone for pain. PHYSICAL EXAMINATION: GENERAL: She is alert and a fair historian. She is talking with the neonatal social worker. VITAL SIGNS: On my arrival, blood pressure slightly low at 93/50, pulse 80 and regular, O2 saturation 92% on room air. ASSESSMENT/PLAN: Ambulation is not tested during my visit today. She will continue with her therapy and strive towards the goal of discharge to home in four days. I will switch her from oxycodone to tramadol. /[id number] JEFFRY/BROOKE
[2018-04-18] MEDS ORDERED: ClonazePAM 1 MG Tab PO ONE (10:45)
[2018-04-18] MEDS: Gabapentin 300 MG Cap PO SCH ×2 (14:50→21:02)
--- NOTE | 2018-04-18 15:37 | PN ---
DATE SEEN: 04/18/2018 HISTORY: Ms. Sutton is a 62-year-old woman, who underwent left total hip arthroplasty by Dr. Ferrer on 04/06/18. She has been recuperating at [facility]. She has been in isolation precautions because of a past history of MRSA. This dates back to May 2016 when she had an arm wound that was cultured positive for MRSA. In July 2017, she had a nasal swab for MRSA that was negative, and in November, she had Klebsiella urinary tract infection without MRSA. Ms. Sutton is quite concerned and agitated now due to the precautions and wondering if she still has this infection. She has been healing satisfactorily and her discharge date is planned for three days from now. She has no active draining wounds. Therapy has been going satisfactorily. She is very anxious and agitated today. I have reviewed her medication list, and because of the multiple medications she is on, I will do an ECG to rule out any QT prolongation. She is also willing to try and decrease her gabapentin, as she does not know if it is doing her any good and likewise the sulfasalazine she has been on for some time now since colonoscopy and does not know if it has helped her alternating diarrhea and constipation. She takes Linzess on a p.r.n. basis for this. I will plan a urinalysis and urine culture, as well as a topical culture from her hip incision area, and if negative, we will take her out of isolation precautions. /[id number] JEFFRY/BROOKE
[2018-04-18] MEDS: Nicotine 21 MG/24 Hr Patch TRDERM SCH (20:51)
[2018-04-19] MEDS: Ibuprofen 600 MG Tab PO PRN ×2 (02:47→20:19)
[2018-04-19] MEDS: traMADol 50 MG Tab PO PRN ×3 (05:41→21:19)
[2018-04-19] MEDS: Pantoprazole 40 MG Tab.CR PO SCH (07:03)
[2018-04-19] MEDS: Escitalopram 20 MG Tab PO SCH (08:41)
[2018-04-19] MEDS: Aspirin 325 MG Tab.EC PO SCH ×2 (08:41→20:18)
[2018-04-19] MEDS: Potassium Chloride 20 MEQ Tab.ER PO SCH (08:42)
[2018-04-19] MEDS: Calcium Carbonate/Vitamin D3 1250 MG-200 Unit Tab PO SCH (08:42)
[2018-04-19] MEDS: Nortriptyline 25 MG Cap PO SCH (08:43)
[2018-04-19] MEDS: Dorzolamide/Timolol 2%-0.5% Ophth Soln 10 ML Bottle EYEBOTH SCH ×2 (08:45→20:18)
[2018-04-19] MEDS: Ezetimibe 10 MG Tab PO SCH (08:46)
[2018-04-19] MEDS: Ascorbic Acid 500 MG Tab PO SCH (08:47)
[2018-04-19] MEDS: Cholecalciferol (Vitamin D3) 1,000 Unit Tab PO SCH (08:48)
[2018-04-19] MEDS: Multivitamins,Therapeutic Tab PO SCH (08:48)
[2018-04-19] MEDS: Gabapentin 300 MG Cap PO SCH ×3 (08:52→20:19)
[2018-04-19] MEDS: Ferrous Sulfate 325 MG Tab PO SCH (08:52)
[2018-04-19] MEDS: Carboxymethylcellulose Sodium 0.5% Ophth Soln 15 ML Bottle EYEBOTH SCH ×4 (08:57→21:20)
[2018-04-19] MEDS: ClonazePAM 1 MG Tab PO SCH ×2 (08:57→20:19)
[2018-04-19] MEDS ORDERED: Cholestyramine/Sucrose Powder 4 GM Packet PO SCH (12:00)
[2018-04-19] MEDS: Cholestyramine/Sucrose Powder 4 GM Packet PO SCH (14:22)
[2018-04-19] MEDS: Nicotine 21 MG/24 Hr Patch TRDERM SCH (20:11)
[2018-04-20] MEDS: traMADol 50 MG Tab PO PRN ×3 (06:25→20:58)
[2018-04-20] MEDS: Pantoprazole 40 MG Tab.CR PO SCH (06:35)
[2018-04-20] MEDS: Ferrous Sulfate 325 MG Tab PO SCH (09:16)
[2018-04-20] MEDS: Calcium Carbonate/Vitamin D3 1250 MG-200 Unit Tab PO SCH (09:16)
[2018-04-20] MEDS: Gabapentin 100 MG Cap PO SCH ×4 (09:20→20:39)
[2018-04-20] MEDS: Dorzolamide/Timolol 2%-0.5% Ophth Soln 10 ML Bottle EYEBOTH SCH ×2 (09:20→20:37)
[2018-04-20] MEDS: Aspirin 325 MG Tab.EC PO SCH ×2 (09:22→20:38)
[2018-04-20] MEDS: Escitalopram 20 MG Tab PO SCH (09:23)
[2018-04-20] MEDS: Nortriptyline 25 MG Cap PO SCH (09:23)
[2018-04-20] MEDS: Potassium Chloride 20 MEQ Tab.ER PO SCH (09:23)
[2018-04-20] MEDS: Cholecalciferol (Vitamin D3) 1,000 Unit Tab PO SCH (09:24)
[2018-04-20] MEDS: Multivitamins,Therapeutic Tab PO SCH (09:24)
[2018-04-20] MEDS: Carboxymethylcellulose Sodium 0.5% Ophth Soln 15 ML Bottle EYEBOTH SCH ×4 (09:24→20:37)
[2018-04-20] MEDS: Ascorbic Acid 500 MG Tab PO SCH (09:25)
[2018-04-20] MEDS: Ezetimibe 10 MG Tab PO SCH (09:25)
[2018-04-20] MEDS: ClonazePAM 1 MG Tab PO SCH ×2 (09:39→20:39)
[2018-04-20] MEDS: Cholestyramine/Sucrose Powder 4 GM Packet PO SCH (12:29)
[2018-04-20] MEDS: Ibuprofen 600 MG Tab PO PRN (18:10)
[2018-04-20] MEDS: Nicotine 21 MG/24 Hr Patch TRDERM SCH (20:36)
[2018-04-21] MEDS: traMADol 50 MG Tab PO PRN ×3 (00:24→15:35)
[2018-04-21] MEDS: Ibuprofen 600 MG Tab PO PRN ×2 (02:47→13:34)
[2018-04-21 03:21] VITALS: BP 125/66
[2018-04-21] MEDS: Pantoprazole 40 MG Tab.CR PO SCH (06:30)
--- NOTE | 2018-04-21 08:02 | PCM.PN ---
- General Info Date of Service: 04/21/18 Admission Dx/Problem (Free Text): Patient states she still has some left leg pain and use the tramadol roughly 3 times a day. Her wound is doing well according the patient. - Patient Data Vitals - Most Recent: Last Vital Signs Temp 98 F 04/21/18 03:20 Pulse 80 04/21/18 03:20 Resp 16 04/21/18 03:20 BP 125/66 04/21/18 03:20 Pulse Ox 99 04/21/18 03:20 Weight - Most Recent: 163 lb I&O - Last 24 Hours: Intake & Output 04/20/18 04/21/18 04/21/18 22:59 06:59 14:59 Intake Total 400 Balance 400 Mehrdad Results Last 24 Hours: Microbiology 04/18/18 12:05 Urine Culture - Final Urine, Voided MIXED POSITIVE CHIN DAY 2 Med Orders - Current: Current Medications Artificial Tears (Refresh Tears 0.5%) 0 ml EYEBOTH QID [facility] Last Admin: 04/20/18 20:37 Dose: 2 drop Ascorbic Acid (Vitamin C) 1,000 mg PO DAILY [facility] Last Admin: 04/20/18 09:25 Dose: 1,000 mg Aspirin (Ecotrin) 325 mg PO BID [facility] Stop: 05/11/18 21:01 Last Admin: 04/20/18 20:38 Dose: 325 mg Calcium Carbonate (Calcium Carbonate/Vitamin D 1250 Mg-200 Unit) 2 tab PO WITHBREAKFAST [facility] Last Admin: 04/20/18 09:16 Dose: 2 tab Calcium Carbonate/Glycine (Tums) 500 mg PO Q4H PRN PRN Reason: HEARTBURN Last Admin: 04/11/18 19:10 Dose: 500 mg Cholecalciferol (Vitamin D3) 2,000 units PO DAILY [facility] Last Admin: 04/20/18 09:24 Dose: 2,000 units Cholestyramine Resin (Cholestyramine Packet) 4 gm PO DAILY@1200 [facility] Last Admin: 04/20/18 12:29 Dose: 4 gm Clonazepam (Klonopin) 1 mg PO BID [facility] Last Admin: 04/20/18 20:39 Dose: 1 mg Diphenhydramine HCl (Benadryl) 50 mg PO BEDTIME PRN PRN Reason: Sleep Last Admin: 04/17/18 00:52 Dose: 50 mg Dorzolamide/Timolol (Cosopt 2%-0.5% Ophth Soln) 0 ml EYEBOTH BID [facility] Last Admin: 04/20/18 20:37 Dose: 2 drop Ezetimibe (Zetia) 5 mg PO DAILY [facility] Last Admin: 04/20/18 09:25 Dose: 5 mg Escitalopram Oxalate (Lexapro) 40 mg PO DAILY [facility] Last Admin: 04/20/18 09:23 Dose: 40 mg Ferrous Sulfate (Ferrous Sulfate) 325 mg PO WITHBREAKFAST [facility] Last Admin: 04/20/18 09:16 Dose: 325 mg Gabapentin (Neurontin) 100 mg PO TID [facility] Last Admin: 04/20/18 20:39 Dose: 100 mg Ibuprofen (Motrin) 600 mg PO Q8H PRN PRN Reason: Pain Last Admin: 04/21/18 02:47 Dose: 600 mg Multivitamins (Thera) 1 each PO DAILY [facility] Last Admin: 04/20/18 09:24 Dose: 1 each Nicotine (Habitrol) 21 mg TRDERM DAILY@1999 [facility] Last Admin: 04/20/18 20:36 Dose: 21 mg Linaclotide [Linzess (] 145 McgOwn Med) 145 mcg PO DAILY PRN PRN Reason: Constipation Nortriptyline HCl (Nortriptyline) 50 mg PO BEDTIME [facility] Pantoprazole Sodium (Protonix) 40 mg PO ACBREAKFAST [facility] Last Admin: 04/21/18 06:30 Dose: 40 mg Potassium Chloride (Klor-Con M20) 20 meq PO DAILY [facility] Last Admin: 04/20/18 09:23 Dose: 20 meq Tramadol HCl (Ultram) 50 mg PO TID PRN PRN Reason: PAIN Last Admin: 04/21/18 00:24 Dose: 50 mg Discontinued Medications Cholestyramine Resin (Cholestyramine Packet) 4 gm PO DAILY [facility] Clonazepam (Klonopin) 1 mg PO ONETIME ONE Stop: 04/18/18 10:46 Last Admin: 04/18/18 11:06 Dose: 1 mg Gabapentin (Neurontin) 600 mg PO TID PRN PRN Reason: NERVE PAIN Gabapentin (Neurontin) 600 mg PO TID [facility] Last Admin: 04/18/18 09:38 Dose: 600 mg Gabapentin (Neurontin) 300 mg PO TID [facility] Stop: 04/19/18 23:59 Last Admin: 04/19/18 20:19 Dose: 300 mg Lactulose (Chronulac) 20 gm PO DAILY PRN PRN Reason: Constipation Last Admin: 04/13/18 17:37 Dose: 20 gm Nicotine (Habitrol) 21 mg TRDERM DAILY [facility] Last Admin: 04/12/18 20:07 Dose: 21 mg Nortriptyline HCl (Nortriptyline) 50 mg PO DAILY [facility] Last Admin: 04/20/18 09:23 Dose: 50 mg Oxybutynin Chloride (Oxybutynin Er) 10 mg PO DAILY [facility] Last Admin: 04/17/18 09:09 Dose: 10 mg Oxycodone HCl (Oxycodone) 5 mg PO Q3H PRN PRN Reason: SEVERE PAIN Last Admin: 04/14/18 08:34 Dose: 5 mg Oxycodone HCl (Oxycodone) 2.5 mg PO Q4H PRN PRN Reason: SEVERE PAIN Last Admin: 04/17/18 18:48 Dose: 2.5 mg Polyethylene Glycol (Miralax) 17 gm PO DAILY PRN PRN Reason: Constipation Senna/Docusate Sodium (Senna Plus) 1 tab PO BID PRN PRN Reason: Constipation Last Admin: 04/13/18 11:30 Dose: 1 tab Sulfasalazine (Sulfasalazine) 500 mg PO QID [facility] Last Admin: 04/18/18 09:20 Dose: 500 mg Tramadol HCl (Ultram) 50 mg PO TID PRN PRN Reason: Pain Last Admin: 04/17/18 20:34 Dose: 50 mg Trimethoprim/Sulfamethoxazole (Septra Ds) 1 tab PO BID [facility] Stop: 04/15/18 09:01 Last Admin: 04/15/18 08:28 Dose: 1 tab - Exam General: Alert, Oriented, Cooperative Lungs: Normal Respiratory Effort Skin: Other (Wound left hip healing nicely with no erythema or drainage) - Problem List & Annotations (1) History of arthroplasty of left hip SNOMED Code(s): 006492025 Code(s): Z98.890 - OTHER SPECIFIED POSTPROCEDURAL STATES Status: Acute Current Visit: Yes (2) Anxiety and depression SNOMED Code(s): 03560697 Code(s): F41.9 - ANXIETY DISORDER, UNSPECIFIED; F32.9 - MAJOR DEPRESSIVE DISORDER, SINGLE EPISODE, UNSPECIFIED Status: Acute Current Visit: Yes (3) Fibromyalgia SNOMED Code(s): 617565780 Code(s): M79.7 - FIBROMYALGIA Status: Acute Current Visit: Yes (4) GERD (gastroesophageal reflux disease) SNOMED Code(s): 588168839 Code(s): K21.9 - GASTRO-ESOPHAGEAL REFLUX DISEASE WITHOUT ESOPHAGITIS Status: Acute Current Visit: Yes (5) Hyperlipemia SNOMED Code(s): 81233060 Code(s): E78.5 - HYPERLIPIDEMIA, UNSPECIFIED Status: Acute Current Visit : Yes (6) Closed fracture of right distal radius SNOMED Code(s): 69402091 Code(s): S52.501A - UNSP FRACTURE OF THE LOWER END OF RIGHT RADIUS, INIT Status: Acute Current Visit: No (7) UTI, Urinary tract infectious disease SNOMED Code(s): 39398233 Code(s): N39.0 - URINARY TRACT INFECTION, SITE NOT SPECIFIED Status: Acute Current Visit: No - Problem List Review Problem List Initiated/Reviewed/Updated: Yes - Plan Plan:: Discharge to home on home health/PT/OT.
--- NOTE | 2018-04-21 08:14 | PCM.DCSUM1 ---
Discharge Summary - Hospital Course Free Text/Narrative:: Hospital course-patient was admitted had some erythema to there are no history of MRSA so she was initially treated with Bactrim. A ultrasound was on her leg that showed no DVT. She is also found to have a Klebsiella UTI was treated with Bactrim and is clear. Patient at rehabilitation initially didn't want to cut back on oxycodone but felt finally was placed on tramadol and ibuprofen and did well. She had a postop anemia that was untreated transfusion with basic iron in her hemoglobin ranged about above 8. Patient will be discharged with PT/OT/home health. Brief History: This is 62-year-old female patient that her left hip arthroplasty due to osteoarthritis. She was transferred here to swing bed for rehabilitation. She had postop anemia of 8.2. It was not treated with transfusion but Iron pills. Diagnosis: Stroke: No - Discharge Data Discharge Date: 04/21/18 Discharge Disposition: Home, Self-Care 01 Condition: Good - Discharge Diagnosis/Problem(s) (1) History of arthroplasty of left hip SNOMED Code(s): 626186091 ICD Code: Z98.890 - OTHER SPECIFIED POSTPROCEDURAL STATES Status: Acute Current Visit: Yes (2) Anxiety and depression SNOMED Code(s): 21379087 ICD Code: F41.9 - ANXIETY DISORDER, UNSPECIFIED; F32.9 - MAJOR DEPRESSIVE DISORDER, SINGLE EPISODE, UNSPECIFIED Status: Acute Current Visit: Yes (3) Fibromyalgia SNOMED Code(s): 042563427 ICD Code: M79.7 - FIBROMYALGIA Status: Acute Current Visit: Yes (4) GERD (gastroesophageal reflux disease) SNOMED Code(s): 513638120 ICD Code: K21.9 - GASTRO-ESOPHAGEAL REFLUX DISEASE WITHOUT ESOPHAGITIS Status: Acute Current Visit: Yes (5) Hyperlipemia SNOMED Code(s): 24094854 ICD Code: E78.5 - HYPERLIPIDEMIA, UNSPECIFIED Status: Acute Current Visit : Yes (6) Closed fracture of right distal radius SNOMED Code(s): 75147912 ICD Code: S52.501A - UNSP FRACTURE OF THE LOWER END OF RIGHT RADIUS, INIT Status: Acute Current Visit: No (7) UTI, Urinary tract infectious disease SNOMED Code(s): 37037112 ICD Code: N39.0 - URINARY TRACT INFECTION, SITE NOT SPECIFIED Status: Acute Current Visit: No - Patient Summary/Data Consults: Consultations 04/10/18 17:03 OT Evaluation and Treatment [CONS] Routine Please Evaluate and Treat. OT Reason for Consult: ADL's This query below is only for informational purposes and is not editable. PT Evaluation and Treatment [CONS] Routine Please Evaluate and Treat. PT Reason for Consult: Ambulation This query below is only for informational purposes and is not editable. - Patient Instructions Diet: Regular Diet as Tolerated Activity: As Tolerated Driving: Do Not Drive Showering/Bathing: May Shower Notify Provider of: Increased Pain, Swelling and Redness, Drainage Other/Special Instructions: 1. DC to home. 2. Recheck with Dr. Alfaro 7-10 days. 3. Home health/PT/OT for strengthening, ambulation, ADLs, medication surveillance and management and home safety and teaching - Discharge Plan Prescriptions/Med Rec: Ferrous Sulfate 325 mg PO WITHBREAKFAST #30 tablet traMADol [Ultram] 50 mg PO TID PRN #30 tablet PRN Reason: PAIN Home Medications: Home Meds Aspirin [Halfprin] 81 mg PO DAILY 12/10/15 [History] Calcium Carbonate/Vitamin D3 [Calcium 600 + Vit D 400 Softgl] 2 each PO WITHBREAKFAST 12/10/15 [History] Cholecalciferol (Vitamin D3) [Vitamin D3] 2,000 unit PO DAILY 12/10/15 [History] Dorzolamide HCl/Timolol Maleat [Cosopt Eye Drops] 1 drop EYEBOTH BID 12/10/15 [ History] Escitalopram [Lexapro] 40 mg PO DAILY 12/10/15 [History] Gabapentin [Neurontin] 600 mg PO TID PRN 12/10/15 [History] Nortriptyline 50 mg PO BEDTIME 12/10/15 [History] Oxybutynin [Oxybutynin ER] 10 mg PO DAILY 12/10/15 [History] Simvastatin [Zocor] 20 mg PO DAILY 12/10/15 [History] clonazePAM [Clonazepam] 1 mg PO BID 12/10/15 [History] sulfaSALAzine 500 mg PO QID 12/10/15 [History] Carboxymethylcellulose Sodium [Refresh Tears] 1 drop EYEBOTH QID 11/09/16 [ History] Ezetimibe [Zetia] 5 mg PO DAILY 11/09/16 [History] Polyethylene Glycol 3350 [MiraLAX] 17 gm PO DAILY PRN 11/09/16 [History] Potassium Chloride [Klor-Con M20] 20 meq PO DAILY 11/09/16 [History] Ascorbate Calcium [Vitamin C] 1,000 mg PO DAILY 07/12/17 [History] Aspirin [Ecotrin] 325 mg PO BID 04/10/18 [History] Calcium Carbonate [Calcium] 500 mg PO Q4H PRN 04/10/18 [History] Lactulose 20 gm PO DAILY PRN 04/10/18 [History] Linaclotide [Linzess] 145 mcg PO DAILY PRN 04/10/18 [History] Multivitamin with Minerals [Multivitamins with Minerals] 1 tab PO DAILY [History] Omeprazole 20 mg PO DAILY 04/10/18 [History] Sennosides/Docusate Sodium [Senna-S] 1 tab PO BID PRN 04/10/18 [History] Sulfamethoxazole/Trimethoprim [Bactrim Ds Tablet] 1 tab PO BID 04/10/18 [History ] diphenhydrAMINE [Benadryl] 50 mg PO BEDTIME PRN 04/10/18 [History] oxyCODONE 5 - 10 mg PO Q3H PRN 04/10/18 [History] traMADol [Ultram] 50 - 100 mg PO Q6H PRN 04/10/18 [History] Ferrous Sulfate 325 mg PO WITHBREAKFAST #30 tablet 04/21/18 [Rx] traMADol [Ultram] 50 mg PO TID PRN #30 tablet 04/21/18 [Rx] - Discharge Summary/Plan Comment DC Time >30 min.: No - Patient Data Vitals - Most Recent: Last Vital Signs Temp 98 F 04/21/18 03:20 Pulse 80 04/21/18 03:20 Resp 16 04/21/18 03:20 BP 125/66 04/21/18 03:20 Pulse Ox 99 04/21/18 03:20 Weight - Most Recent: 163 lb I&O - Last 24 hours: Intake & Output 04/20/18 04/21/18 04/21/18 22:59 06:59 14:59 Intake Total 400 Balance 400 RADHA Results - Last 24 hrs: Microbiology 04/18/18 12:05 Urine Culture - Final Urine, Voided MIXED POSITIVE CHIN DAY 2 Med Orders - Current: Current Medications Artificial Tears (Refresh Tears 0.5%) 0 ml EYEBOTH QID [facility] Last Admin: 04/20/18 20:37 Dose: 2 drop Ascorbic Acid (Vitamin C) 1,000 mg PO DAILY [facility] Last Admin: 04/20/18 09:25 Dose: 1,000 mg Aspirin (Ecotrin) 325 mg PO BID [facility] Stop: 05/11/18 21:01 Last Admin: 04/20/18 20:38 Dose: 325 mg Calcium Carbonate (Calcium Carbonate/Vitamin D 1250 Mg-200 Unit) 2 tab PO WITHBREAKFAST [facility] Last Admin: 04/20/18 09:16 Dose: 2 tab Calcium Carbonate/Glycine (Tums) 500 mg PO Q4H PRN PRN Reason: HEARTBURN Last Admin: 04/11/18 19:10 Dose: 500 mg Cholecalciferol (Vitamin D3) 2,000 units PO DAILY [facility] Last Admin: 04/20/18 09:24 Dose: 2,000 units Cholestyramine Resin (Cholestyramine Packet) 4 gm PO DAILY@1200 [facility] Last Admin: 04/20/18 12:29 Dose: 4 gm Clonazepam (Klonopin) 1 mg PO BID [facility] Last Admin: 04/20/18 20:39 Dose: 1 mg Diphenhydramine HCl (Benadryl) 50 mg PO BEDTIME PRN PRN Reason: Sleep Last Admin: 04/17/18 00:52 Dose: 50 mg Dorzolamide/Timolol (Cosopt 2%-0.5% Ophth Soln) 0 ml EYEBOTH BID [facility] Last Admin: 04/20/18 20:37 Dose: 2 drop Ezetimibe (Zetia) 5 mg PO DAILY [facility] Last Admin: 04/20/18 09:25 Dose: 5 mg Escitalopram Oxalate (Lexapro) 40 mg PO DAILY [facility] Last Admin: 04/20/18 09:23 Dose: 40 mg Ferrous Sulfate (Ferrous Sulfate) 325 mg PO WITHBREAKFAST [facility] Last Admin: 04/20/18 09:16 Dose: 325 mg Gabapentin (Neurontin) 100 mg PO TID [facility] Last Admin: 04/20/18 20:39 Dose: 100 mg Ibuprofen (Motrin) 600 mg PO Q8H PRN PRN Reason: Pain Last Admin: 04/21/18 02:47 Dose: 600 mg Multivitamins (Thera) 1 each PO DAILY [facility] Last Admin: 04/20/18 09:24 Dose: 1 each Nicotine (Habitrol) 21 mg TRDERM DAILY@1999 [facility] Last Admin: 04/20/18 20:36 Dose: 21 mg Linaclotide [Linzess (] 145 McgOwn Med) 145 mcg PO DAILY PRN PRN Reason: Constipation Nortriptyline HCl (Nortriptyline) 50 mg PO BEDTIME [facility] Pantoprazole Sodium (Protonix) 40 mg PO ACBREAKFAST [facility] Last Admin: 04/21/18 06:30 Dose: 40 mg Potassium Chloride (Klor-Con M20) 20 meq PO DAILY [facility] Last Admin: 04/20/18 09:23 Dose: 20 meq Tramadol HCl (Ultram) 50 mg PO TID PRN PRN Reason: PAIN Last Admin: 04/21/18 00:24 Dose: 50 mg Discontinued Medications Cholestyramine Resin (Cholestyramine Packet) 4 gm PO DAILY [facility] Clonazepam (Klonopin) 1 mg PO ONETIME ONE Stop: 04/18/18 10:46 Last Admin: 04/18/18 11:06 Dose: 1 mg Gabapentin (Neurontin) 600 mg PO TID PRN PRN Reason: NERVE PAIN Gabapentin (Neurontin) 600 mg PO TID [facility] Last Admin: 04/18/18 09:38 Dose: 600 mg Gabapentin (Neurontin) 300 mg PO TID [facility] Stop: 04/19/18 23:59 Last Admin: 04/19/18 20:19 Dose: 300 mg Lactulose (Chronulac) 20 gm PO DAILY PRN PRN Reason: Constipation Last Admin: 04/13/18 17:37 Dose: 20 gm Nicotine (Habitrol) 21 mg TRDERM DAILY [facility] Last Admin: 04/12/18 20:07 Dose: 21 mg Nortriptyline HCl (Nortriptyline) 50 mg PO DAILY [facility] Last Admin: 04/20/18 09:23 Dose: 50 mg Oxybutynin Chloride (Oxybutynin Er) 10 mg PO DAILY [facility] Last Admin: 04/17/18 09:09 Dose: 10 mg Oxycodone HCl (Oxycodone) 5 mg PO Q3H PRN PRN Reason: SEVERE PAIN Last Admin: 04/14/18 08:34 Dose: 5 mg Oxycodone HCl (Oxycodone) 2.5 mg PO Q4H PRN PRN Reason: SEVERE PAIN Last Admin: 04/17/18 18:48 Dose: 2.5 mg Polyethylene Glycol (Miralax) 17 gm PO DAILY PRN PRN Reason: Constipation Senna/Docusate Sodium (Senna Plus) 1 tab PO BID PRN PRN Reason: Constipation Last Admin: 04/13/18 11:30 Dose: 1 tab Sulfasalazine (Sulfasalazine) 500 mg PO QID [facility] Last Admin: 04/18/18 09:20 Dose: 500 mg Tramadol HCl (Ultram) 50 mg PO TID PRN PRN Reason: Pain Last Admin: 04/17/18 20:34 Dose: 50 mg Trimethoprim/Sulfamethoxazole (Septra Ds) 1 tab PO BID [facility] Stop: 04/15/18 09:01 Last Admin: 04/15/18 08:28 Dose: 1 tab
[2018-04-21] MEDS: Calcium Carbonate/Vitamin D3 1250 MG-200 Unit Tab PO SCH (08:17)
[2018-04-21] MEDS: ClonazePAM 1 MG Tab PO SCH (08:17)
[2018-04-21] MEDS: Gabapentin 100 MG Cap PO SCH ×2 (08:17→13:35)
[2018-04-21] MEDS: Ascorbic Acid 500 MG Tab PO SCH (08:17)
[2018-04-21 08:18] LABS: IRON BIND.CAP.(TIBC) 250 ug/dL (250-450); IRON SATURATION 17 % (15-55); IRON, SERUM 43 ug/dL (27-139); UIBC 207 ug/dL (118-369)
[2018-04-21] MEDS: Potassium Chloride 20 MEQ Tab.ER PO SCH (08:18)
[2018-04-21] MEDS: Escitalopram 20 MG Tab PO SCH (08:18)
[2018-04-21] MEDS: Ferrous Sulfate 325 MG Tab PO SCH (08:18)
[2018-04-21] MEDS: Ezetimibe 10 MG Tab PO SCH (08:18)
[2018-04-21] MEDS: Aspirin 325 MG Tab.EC PO SCH (08:19)
[2018-04-21] MEDS: Cholecalciferol (Vitamin D3) 1,000 Unit Tab PO SCH (08:19)
[2018-04-21] MEDS: Multivitamins,Therapeutic Tab PO SCH (08:19)
[2018-04-21] MEDS: Carboxymethylcellulose Sodium 0.5% Ophth Soln 15 ML Bottle EYEBOTH SCH ×2 (08:19→13:33)
[2018-04-21] MEDS: Dorzolamide/Timolol 2%-0.5% Ophth Soln 10 ML Bottle EYEBOTH SCH (08:19)
[2018-04-21] MEDS: Cholestyramine/Sucrose Powder 4 GM Packet PO SCH (11:30)
[2018-04-21] MEDS ORDERED: Nortriptyline 25 MG Cap PO SCH (21:00)
== END 2018-04-21 17:40 | disposition home health service (06) | DRG 560 ==
LOC: FB.MS 15:12
PROVIDERS: ADMIT Family Medicine; ATTEND Family Medicine
DX: Z47.1 Aftercare following joint replacement surgery (principal); N39.0 Urinary tract infection, site not specified; Z98.890 Other specified postprocedural states; Z96.642 Presence of left artificial hip joint; M79.2 Neuralgia and neuritis, unspecified; G89.29 Other chronic pain; B96.1 Klebsiella pneumoniae [K. pneumoniae] as the cause of diseases classified elsewhere; M79.89 Other specified soft tissue disorders; Z86.14 Personal history of Methicillin resistant Staphylococcus aureus infection; F39 Unspecified mood [affective] disorder; K21.9 Gastro-esophageal reflux disease without esophagitis; M79.7 Fibromyalgia; H40.9 Unspecified glaucoma; K59.09 Other constipation; H91.90 Unspecified hearing loss, unspecified ear; H54.7 Unspecified visual loss; K58.9 Irritable bowel syndrome, unspecified; M19.90 Unspecified osteoarthritis, unspecified site; F41.9 Anxiety disorder, unspecified; F32.9 Major depressive disorder, single episode, unspecified; D64.9 Anemia, unspecified; Z87.11 Personal history of peptic ulcer disease; Z90.49 Acquired absence of other specified parts of digestive tract; Z79.82 Long term (current) use of aspirin; Z88.1 Allergy status to other antibiotic agents; Z88.5 Allergy status to narcotic agent; Z88.0 Allergy status to penicillin; Z91.013 Allergy to seafood; Z88.8 Allergy status to other drugs, medicaments and biological substances
CPT/HCPCS: 36415; 80048; 80053; 81001; 82728; 83540; 83550; 85025; 85045; 87086; 93005; 93971-LT; 97110-GP; 97116-GP; 97161-GP; 97165-GO; 97530-GO; 97530-GP; 97535-GO; A9270-GY

== ENCOUNTER 2018-05-08 18:53 | Emergency (ER) | payer MEDICARE, MEDICAID ==
[2018-05-08] MEDS ORDERED: Ketorolac 30 MG/ML SDV IVPUSH ONE (19:08)
[2018-05-08] MEDS ORDERED: Sodium Chloride 0.9% 1,000 ML IV ONE ×2 (19:11→21:36)
[2018-05-08] MEDS ORDERED: Potassium Chloride 20 MEQ Tab.ER PO ONE (19:27)
--- NOTE | 2018-05-08 19:35 | EDM.PDOC ---
ED HPI GENERAL MEDICAL PROBLEM - General Chief Complaint: General Stated Complaint: GENERALIZED PAIN Time Seen by Provider: 05/08/18 19:00 Source of Information: Reports: Patient History Limitations: Reports: No Limitations - History of Present Illness INITIAL COMMENTS - FREE TEXT/NARRATIVE: c/o generalized pain pt called EMS and said that she "hurt all over", was tangential, lived in an apartment that was quite cluttered, had a large amount of pill bottles that EMS brought in smells of nicotine yet says she stopped smoking memory poor EKG with SR 77 and LAD -46, no ST change a little irritable and oppositional with staff at her bedside stated she was in pain and "stop hurting me" when auscultating her chest with a stethoscope she had recent hip surgery and here at [facility] for several days for rehab before d/c home she had been on oxycodone, which she wanted, altho had been changed to tramadol now stating that she is out of tramadol as per [facility] pt filled tramadol 50 mg #30 04/[address] Huang, also filled gabapentin 100 mg #30 3/ from Dr Huang Midsternal chest, L hip Pain Score (Numeric/FACES): 7 - Related Data Allergies Allergy/AdvReac Type Severity Reaction Status Date / Time ciprofloxacin [From Cipro] Allergy Rash Verified 05/08/18 19:14 dexamethasone Allergy Cannot Verified 05/08/18 19:14 Remember hydrocodone Allergy Cannot Verified 05/08/18 19:14 Remember neomycin Allergy Cannot Verified 05/08/18 19:14 Remember Penicillins Allergy Rash Verified 05/08/18 19:14 polymyxin B Allergy Cannot Verified 05/08/18 19:14 Remember propoxyphene Allergy Cannot Verified 05/08/18 19:14 Remember shellfish derived Allergy Difficulty Verified 05/08/18 19:14 Swallowing Home Meds: Home Meds Aspirin [Halfprin] 81 mg PO DAILY 12/10/15 [History] Cholecalciferol (Vitamin D3) [Vitamin D3] 2,000 unit PO DAILY 12/10/15 [History] Dorzolamide HCl/Timolol Maleat [Cosopt Eye Drops] 1 drop EYEBOTH BID 12/10/15 [ History] Escitalopram [Lexapro] 40 mg PO DAILY 12/10/15 [History] Nortriptyline 50 mg PO BEDTIME 12/10/15 [History] Oxybutynin [Oxybutynin ER] 10 mg PO DAILY 12/10/15 [History] Simvastatin [Zocor] 20 mg PO DAILY 12/10/15 [History] clonazePAM [Clonazepam] 1 mg PO BID 12/10/15 [History] sulfaSALAzine 500 mg PO QID 12/10/15 [History] Carboxymethylcellulose Sodium [Refresh Tears] 1 drop EYEBOTH QID 11/09/16 [ History] Ezetimibe [Zetia] 5 mg PO DAILY 11/09/16 [History] Polyethylene Glycol 3350 [MiraLAX] 17 gm PO DAILY PRN 11/09/16 [History] Potassium Chloride [Klor-Con M20] 20 meq PO DAILY 11/09/16 [History] Ascorbate Calcium [Vitamin C] 1,000 mg PO DAILY 07/12/17 [History] Aspirin [Ecotrin] 325 mg PO BID 04/10/18 [History] Calcium Carbonate [Calcium] 500 mg PO Q4H PRN 04/10/18 [History] Lactulose 20 gm PO DAILY PRN 04/10/18 [History] Linaclotide [Linzess] 145 mcg PO DAILY PRN 04/10/18 [History] Multivitamin with Minerals [Multivitamins with Minerals] 1 tab PO DAILY [History] Omeprazole 20 mg PO DAILY 04/10/18 [History] Sennosides/Docusate Sodium [Senna-S] 1 tab PO BID PRN 04/10/18 [History] diphenhydrAMINE [Benadryl] 50 mg PO BEDTIME PRN 04/10/18 [History] Ferrous Sulfate 325 mg PO WITHBREAKFAST #30 tablet 04/21/18 [Rx] traMADol [Ultram] 50 mg PO TID PRN #30 tablet 04/21/18 [Rx] Gabapentin [Neurontin] 600 mg PO TID PRN 05/08/18 [History] Meloxicam 15 mg PO DAILY 05/08/18 [History] Past Medical History HEENT History: Reports: Cataract, Hard of Hearing, Impaired Vision Cardiovascular History: Reports: High Cholesterol Respiratory History: Reports: Other (See Below) Other Respiratory History: PHARMACOLOGIST SMOKER Gastrointestinal History: Reports: Chronic Constipation, GERD, Irritable Bowel Syndrome Genitourinary History: Reports: Renal Calculus MANUFACTURERS REPRESENTATIVE History: Reports: Ectopic , Other MANUFACTURERS REPRESENTATIVE History: VIII, PARA V ECTOPIC PREGNANCYX 1, AB II Musculoskeletal History: Reports: Arthritis Neurological History: Reports: None Psychiatric History: Reports: Anxiety, Depression Endocrine/Metabolic History: Reports: None Hematologic History: Reports: Anemia Oncologic (Cancer) History: Reports: None - Infectious Disease History Infectious Disease 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 Cardiovascular Surgical History: Reports: None GI Surgical History: Reports: Cholecystectomy, Other (See Below) Other GI Surgeries/Procedures: SURGERY FOR GASTRIC ULCER. VAGUE, CANNOT REMEMBER EXACT PROCEDURES. Female Surgical History: Reports: None Musculoskeletal Surgical History: Reports: None Social & Family History - Family History Family Medical History: Unobtainable - Caffeine Use Caffeine Use: Reports: Coffee ED ROS GENERAL - Review of Systems Review Of Systems: See Below Constitutional: Reports: No Symptoms HEENT: Reports: No Symptoms Respiratory: Reports: No Symptoms Cardiovascular: Reports: No Symptoms Endocrine: Reports: No Symptoms GI/Abdominal: Reports: No Symptoms : Reports: No Symptoms Musculoskeletal: Reports: Other (generalized pain) Skin: Reports: No Symptoms Neurological: Reports: No Symptoms Psychiatric: Reports: No Symptoms Hematologic/Lymphatic: Reports: No Symptoms Immunologic: Reports: No Symptoms ED EXAM, GENERAL - Physical Exam Exam: See Below General Appearance: Alert, WD/WN, No Apparent Distress, Other (talkative, tangential, multiple nonspecific c/os, mildly orthostatic SBP 118 supine to 100 standing with no change in HR, nicotine on clothing) Eye Exam: Bilateral Eye: Normal Inspection Ears: Normal External Exam, Normal Canal, Hearing Grossly Normal Nose: Normal Inspection, Normal Mucosa, No Blood Throat/Mouth: Normal Inspection, Normal Lips, Normal Gums, Normal Oropharynx, Normal Voice, No Airway Compromise Head: Atraumatic, Normocephalic Neck: Normal Inspection, Supple, Non-Tender. No: Lymphadenopathy (R), Lymphadenopathy (L) Respiratory/Chest: No Respiratory Distress, Lungs Clear, Normal Breath Sounds, No Accessory Muscle Use, Chest Non-Tender Cardiovascular: Regular Rate, Rhythm, No Edema, No Gallop, No JVD, No Rub, Other (2/6 BARRON at LSB) GI/Abdominal: Soft, No Distention Back Exam: Normal Inspection, Full Range of Motion, NT Extremities: Normal Inspection, Normal Range of Motion, Non-Tender, No Pedal Edema Neurological: Alert, CN II-XII Intact, No Motor/Sensory Deficits Psychiatric: Anxious Skin Exam: Warm, Dry, Intact, Normal Color, No Rash, Other (no edema, dec'd turgor UE) Lymphatic: No Adenopathy Course - Vital Signs Last Recorded V/S: Last Vital Signs Temp 36.4 C 05/08/18 18:53 Pulse 80 05/08/18 18:53 Resp 18 05/08/18 18:53 BP 103/66 05/08/18 18:53 Pulse Ox 99 05/08/18 18:53 Orthostatic Blood Pressure [ 100/80 Standing] Orthostatic Blood Pressure [ 124/74 Sitting] Orthostatic Blood Pressure [ 118/73 Supine] - Orders/Labs/Meds Orders: Active Orders 24 hr Category Date Time Status EKG Documentation Completion [RC] ASDIRECTED Care 05/08/18 19:08 Active Orthostatic Vital Signs [RC] ASDIRECTED Care 05/08/18 19:12 Active Chest 2V [CR] Stat Exams 05/08/18 19:13 Taken EKG 12 Lead [EK] Routine Ther 05/08/18 19:08 Ordered Labs: Laboratory Tests 05/08/18 05/08/18 05/08/18 Range/Units 18:55 18:55 18:55 WBC 9.0 (4.5-12.0) X10-3/uL RBC 3.63 (3.23-5.20) x10(6)uL Hgb 11.1 L (11.5-15.5) g/dL Hct 33.8 (30.0-51.3) % MCV 93.0 (80-96) fL MCH 30.6 (27.7-33.6) pg MCHC 32.9 (32.2-35.4) g/dL RDW 13.2 (11.5-15.5) % Plt Count 337 (125-369) X10(3)uL MPV 5.8 L (7.4-10.4) fL Neut % (Auto) 52.2 (46-82) % Lymph % (Auto) 33.2 (13-37) % [place] % (Auto) 11.6 (4-12) % Eos % (Auto) 3 (1.0-5.0) % Baso % (Auto) 0 (0-2) % Neut # (Auto) 4.7 (1.6-8.3) # Lymph # (Auto) 3.0 (0.6-5.0) # [place] # (Auto) 1.0 (0.0-1.3) # Eos # (Auto) 0.3 (0.0-0.8) # Baso # (Auto) 0.0 (0.0-0.2) # Sodium 140 (135-145) mmol/L Potassium 3.4 L (3.5-5.3) mmol/L Chloride 103 (100-110) mmol/L Carbon Dioxide 30 (21-32) mmol/L BUN 8 (7-18) mg/dL Creatinine 0.8 (0.55-1.02) mg/dL Est Cr Clr Drug Dosing TNP Estimated GFR (MDRD) > 60 (>60) BUN/Creatinine Ratio 10.0 (9-20) Glucose 91 (80-116) mg/dL Calcium 9.3 (8.6-10.2) mg/dL Total Bilirubin 0.2 (0.1-1.3) mg/dL AST 13 D (5-25) IU/L ALT 14 D (12-36) U/L Alkaline Phosphatase 100 (56-112) IU/L Troponin I < 0.017 L (<0.017-0.056) ng/mL C-Reactive Protein 0.4 L (0.5-0.9) mg/dL Total Protein 7.2 (6.0-8.0) g/dL Albumin 3.7 (3.2-4.6) g/dL Globulin 3.5 g/dL Albumin/Globulin Ratio 1.1 TSH, Ultra Sensitive (0.36-3.74) IU/mL Urine Color (YELLOW) Urine Appearance (CLEAR) Urine pH (5.0-6.5) Ur Specific [place] (1.010-1.025) Urine Protein (NEGATIVE) mg/dL Urine Glucose (UA) (NORMAL) mg/dL Urine Ketones (NEGATIVE) mg/dL Urine Occult Blood (NEGATIVE) Urine Nitrite (NEGATIVE) Urine Bilirubin (NEGATIVE) Urine Urobilinogen (NEGATIVE) mg/dL Ur Leukocyte Esterase (NEGATIVE) Urine RBC (0-5) Urine WBC (0-5) Ur Squamous Epith Cells (NS,R,O) Urine Bacteria (NS) 05/08/18 05/08/18 Range/Units 18:55 23:15 WBC (4.5-12.0) X10-3/uL RBC (3.23-5.20) x10(6)uL Hgb (11.5-15.5) g/dL Hct (30.0-51.3) % MCV (80-96) fL MCH (27.7-33.6) pg MCHC (32.2-35.4) g/dL RDW (11.5-15.5) % Plt Count (125-369) X10(3)uL MPV (7.4-10.4) fL Neut % (Auto) (46-82) % Lymph % (Auto) (13-37) % [place] % (Auto) (4-12) % Eos % (Auto) (1.0-5.0) % Baso % (Auto) (0-2) % Neut # (Auto) (1.6-8.3) # Lymph # (Auto) (0.6-5.0) # [place] # (Auto) (0.0-1.3) # Eos # (Auto) (0.0-0.8) # Baso # (Auto) (0.0-0.2) # Sodium (135-145) mmol/L Potassium (3.5-5.3) mmol/L Chloride (100-110) mmol/L Carbon Dioxide (21-32) mmol/L BUN (7-18) mg/dL Creatinine (0.55-1.02) mg/dL Est Cr Clr Drug Dosing Estimated GFR (MDRD) (>60) BUN/Creatinine Ratio (9-20) Glucose (80-116) mg/dL Calcium (8.6-10.2) mg/dL Total Bilirubin (0.1-1.3) mg/dL AST (5-25) IU/L ALT (12-36) U/L Alkaline Phosphatase (56-112) IU/L Troponin I (<0.017-0.056) ng/mL C-Reactive Protein (0.5-0.9) mg/dL Total Protein (6.0-8.0) g/dL Albumin (3.2-4.6) g/dL Globulin g/dL Albumin/Globulin Ratio TSH, Ultra Sensitive 2.14 (0.36-3.74) IU/mL Urine Color Yellow (YELLOW) Urine Appearance Slightly cloudy (CLEAR) Urine pH 5.0 (5.0-6.5) Ur Specific [place] 1.010 (1.010-1.025) Urine Protein Negative (NEGATIVE) mg/dL Urine Glucose (UA) Normal (NORMAL) mg/dL Urine Ketones Negative (NEGATIVE) mg/dL Urine Occult Blood Negative (NEGATIVE) Urine Nitrite Negative (NEGATIVE) Urine Bilirubin Negative (NEGATIVE) Urine Urobilinogen Normal (NEGATIVE) mg/dL Ur Leukocyte Esterase Negative (NEGATIVE) Urine RBC 0-5 (0-5) Urine WBC 0-5 (0-5) Ur Squamous Epith Cells Moderate H (NS,R,O) Urine Bacteria Moderate H (NS) Meds: Medications Discontinued Medications Generic Name Dose Route Start Last Admin Trade Name Freq PRN Reason Stop Dose Admin Sodium Chloride 1,000 mls @ 999 mls/hr 05/08/18 19:11 05/08/18 19:41 Normal Saline IV 05/08/18 20:11 999 mls/hr .BOLUS ONE Administration Sodium Chloride 1,000 mls @ 999 mls/hr 05/08/18 21:36 05/08/18 21:45 Normal Saline IV 05/08/18 22:36 999 mls/hr .BOLUS ONE Administration Ketorolac Tromethamine 30 mg 05/08/18 19:08 05/08/18 19:42 Toradol IVPUSH 05/08/18 19:09 30 mg ONETIME ONE Administration Potassium Chloride 40 meq 05/08/18 19:27 05/08/18 19:43 Klor-Con M20 PO 05/08/18 19:28 40 meq ONETIME ONE Administration - Re-Assessments/Exams Free Text/Narrative Re-Assessment/Exam: 05/08/18 19:51 hgb 11.2 and improving, CBC otherwise neg mildly orthostatic 05/09/18 00:12 w/u here neg except for chronic pain and mild dehydration, given 2 liters NS here, still having nonspecific generalized pain\\ given a dose of Toradol 30 mg IV and APAP 1000 mg PO just prior to d/c Departure - Departure Time of Disposition: 00:08 Disposition: Home, Self-Care 01 Condition: Good Clinical Impression: Generalized pain, Post-op pain, Dehydration, Orthostasis - Discharge Information *PRESCRIPTION DRUG MONITORING PROGRAM REVIEWED*: Not Applicable *COPY OF PRESCRIPTION DRUG MONITORING REPORT IN PATIENT NATALIA: Not Applicable Referrals: Devendra Santos MD [Primary Care Provider] - Forms: ED Department Discharge Additional Instructions: Take your medications only as prescribed. See your doctor in the next week and take all of your pill bottles with you as your doctor may want to cut back on the number of pills that you take, as medications themselves can often cause dizziness. Increase fluids, at least 2 liters daily without caffeine. Continue to work with OT and PT. - My Orders Last 24 Hours: My Active Orders 05/08/18 19:08 EKG Documentation Completion [RC] ASDIRECTED EKG 12 Lead [EK] Routine 05/08/18 19:12 Orthostatic Vital Signs [RC] ASDIRECTED 05/08/18 19:13 Chest 2V [CR] Stat - Assessment/Plan Last 24 Hours: My Active Orders 05/08/18 19:08 EKG Documentation Completion [RC] ASDIRECTED EKG 12 Lead [EK] Routine 05/08/18 19:12 Orthostatic Vital Signs [RC] ASDIRECTED 05/08/18 19:13 Chest 2V [CR] Stat
[2018-05-09] MEDS ORDERED: Acetaminophen 500 MG Tab PO ONE (00:13)
[2018-05-09] MEDS ORDERED: Ketorolac 30 MG/ML SDV IVPUSH ONE (00:13)
[2018-05-09 01:23] VITALS: BP 127/69
--- NOTE | 2018-05-09 14:37 | CR ---
INDICATION: Chest pain. CHEST: AP and lateral views of the chest were obtained 05/08/18 and compared with 09/13/16, again revealing the heart to be normal in size and shape. Mediastinum and bony thorax were unremarkable, except for a compression fracture of indeterminate age at the upper middle thoracic spine. Anterior compression is moderate - approximately 20%. Diaphragm leaves in the lateral projection are slightly flattened with slightly prominent AP diameter and mild hyperaeration, all suggesting the possibility of COPD - correlate clinically. A healed fracture site posterolaterally is noted at the 7th right rib. IMPRESSION: Stable chest, no acute process. The heart is normal in size and shape. MTDD
== END 2018-05-09 01:15 | disposition home or self-care (01) ==
LOC: FB.ED 18:53
DX: E86.0 Dehydration (principal); I95.1 Orthostatic hypotension; G89.18 Other acute postprocedural pain; E78.00 Pure hypercholesterolemia, unspecified; F41.9 Anxiety disorder, unspecified; F32.9 Major depressive disorder, single episode, unspecified; Z88.1 Allergy status to other antibiotic agents; Z79.899 Other long term (current) drug therapy; Z88.8 Allergy status to other drugs, medicaments and biological substances; Z79.82 Long term (current) use of aspirin; Z91.013 Allergy to seafood
CPT/HCPCS: 36415; 71046; 80053; 81001; 84443; 84484; 85025; 86140; 93005; 96361; 96374; 96376; 99285; A9270; J1885; J7030; 99284

== ENCOUNTER 2018-11-14 02:21 | Emergency (ER) | payer MEDICAID, MEDICARE ==
[2018-11-14] MEDS ORDERED: Acetaminophen/oxyCODONE 325-5 MG Tab PO ONE (02:36)
[2018-11-14 02:47] VITALS: BP 121/84; PULSE 106
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
== END 2018-11-14 03:15 | disposition home or self-care (01) ==
LOC: FB.ED 02:21
DX: T14.8XXD Other injury of unspecified body region, subsequent encounter (principal); M54.5 Low back pain; R07.89 Other chest pain; E78.5 Hyperlipidemia, unspecified; F41.9 Anxiety disorder, unspecified; F32.9 Major depressive disorder, single episode, unspecified; K21.9 Gastro-esophageal reflux disease without esophagitis; Z88.8 Allergy status to other drugs, medicaments and biological substances; Z88.1 Allergy status to other antibiotic agents; Z88.5 Allergy status to narcotic agent; Z88.0 Allergy status to penicillin; Z91.013 Allergy to seafood; Z79.82 Long term (current) use of aspirin; V89.2XXD Person injured in unspecified motor-vehicle accident, traffic, subsequent encounter
CPT/HCPCS: 99282; A9270

== ENCOUNTER 2019-06-24 20:15 | Emergency (ER) | payer MEDICARE, MEDICAID ==
[2019-06-24] MEDS ORDERED: LORazepam 2 MG/ML SDV IM ONE (20:59)
[2019-06-24] MEDS ORDERED: Ketorolac 30 MG/ML SDV IM ONE ×2 (20:59→22:03)
--- NOTE | 2019-06-24 21:21 | EDM.PDOC ---
ED HPI GENERAL MEDICAL PROBLEM - General Chief Complaint: Headache Stated Complaint: HEADACHE Time Seen by Provider: 06/24/19 20:50 Source of Information: Reports: Patient, Old Records History Limitations: Reports: No Limitations - History of Present Illness INITIAL COMMENTS - FREE TEXT/NARRATIVE: Karen Gomez comes to [facility] ED by car with reported week long hx of frontal headache that seems unremitting. Headache is aching, some light sensitivity, and not improved with Tylenol, repositioning, or rest. There is no PMH of vascular headache, trauma, or reported focal neurological deficit. There is associated generalized pain impacting on the neck, L>R anterior chest, and back. "I feel so much anxiety" when describing her clinical course. Treatments COMMUNITY SERVICES OFFICER: Reports: Acetaminophen, Aspirin - Related Data Allergies Allergy/AdvReac Type Severity Reaction Status Date / Time ciprofloxacin [From Cipro] Allergy Rash Verified 05/08/18 19:14 dexamethasone Allergy Cannot Verified 05/08/18 19:14 Remember hydrocodone Allergy Cannot Verified 05/08/18 19:14 Remember neomycin Allergy Cannot Verified 05/08/18 19:14 Remember Penicillins Allergy Rash Verified 05/08/18 19:14 polymyxin B Allergy Cannot Verified 05/08/18 19:14 Remember propoxyphene Allergy Cannot Verified 05/08/18 19:14 Remember shellfish derived Allergy Difficulty Verified 05/08/18 19:14 Swallowing Home Meds: Home Meds Aspirin [Halfprin] 81 mg PO DAILY 12/10/15 [History] Cholecalciferol (Vitamin D3) [Vitamin D3] 2,000 unit PO DAILY 12/10/15 [History] Dorzolamide HCl/Timolol Maleat [Cosopt Eye Drops] 1 drop EYEBOTH BID 12/10/15 [ History] Nortriptyline 50 mg PO BEDTIME 12/10/15 [History] Oxybutynin [Oxybutynin ER] 10 mg PO DAILY 12/10/15 [History] Simvastatin [Zocor] 20 mg PO DAILY 12/10/15 [History] sulfaSALAzine 500 mg PO QID 12/10/15 [History] Carboxymethylcellulose Sodium [Refresh Tears] 1 drop EYEBOTH QID 11/09/16 [ History] Ezetimibe [Zetia] 5 mg PO DAILY 11/09/16 [History] Potassium Chloride [Klor-Con M20] 20 meq PO DAILY 11/09/16 [History] Ascorbate Calcium [Vitamin C] 1,000 mg PO DAILY 07/12/17 [History] Aspirin [Ecotrin EC] 325 mg PO BID 04/10/18 [History] Calcium Carbonate [Calcium] 500 mg PO Q4H PRN 04/10/18 [History] Linaclotide [Linzess] 145 mcg PO DAILY PRN 04/10/18 [History] Multivitamin with Minerals [Multivitamins with Minerals] 1 tab PO DAILY [History] Omeprazole 20 mg PO DAILY 04/10/18 [History] Gabapentin [Neurontin] 600 mg PO TID PRN 05/08/18 [History] Acetaminophen/oxyCODONE [Percocet 325-5 MG] 1 each PO Q6H PRN #10 tab 11/14/18 [ Rx] Ibuprofen [Motrin] 800 mg PO TID PRN #30 tab 11/14/18 [Rx] Past Medical History HEENT History: Reports: Cataract, Hard of Hearing, Impaired Vision Cardiovascular History: Reports: High Cholesterol Respiratory History: Reports: Other (See Below) 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 Gastrointestinal History: Reports: Chronic Constipation, GERD, Irritable Bowel Syndrome Genitourinary History: Reports: Renal Calculus 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: Ectopic , Other AUTO CARRIER DRIVER History: VIII, PARA V ECTOPIC PREGNANCYX 1, AB II Musculoskeletal History: Reports: Arthritis Neurological History: Reports: None Psychiatric History: Reports: Anxiety, Depression Endocrine/Metabolic History: Reports: None Hematologic History: Reports: Anemia Oncologic (Cancer) History: Reports: None - Infectious Disease History Infectious Disease 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 Cardiovascular Surgical History: Reports: None GI Surgical History: Reports: Cholecystectomy, Other (See Below) Other GI Surgeries/Procedures: SURGERY FOR GASTRIC ULCER. VAGUE, CANNOT REMEMBER EXACT PROCEDURES. Female Surgical History: Reports: None Musculoskeletal Surgical History: Reports: None Social & Family History - Family History Family Medical History: Unobtainable - Caffeine Use Caffeine Use: Reports: Coffee ED ROS GENERAL - Review of Systems Review Of Systems: See Below Constitutional: Reports: Weakness, Decreased Appetite HEENT: Reports: Other (some light sensitivity) Respiratory: Reports: No Symptoms Cardiovascular: Reports: Chest Pain (L>R anterior chest tenderness) Endocrine: Reports: Fatigue GI/Abdominal: Reports: Decreased Appetite : Reports: No Symptoms Musculoskeletal: Reports: Neck Pain, Back Pain Skin: Reports: No Symptoms Neurological: Reports: Headache Psychiatric: Reports: Anxiety Hematologic/Lymphatic: Reports: No Symptoms Immunologic: Reports: No Symptoms - Physical Exam Exam: See Below Exam Limited By: No Limitations General Appearance: Alert, WD/WN, Anxious, Mild Distress Eye Exam: Bilateral Eye: EOMI, Normal Inspection, PERRL Ears: Normal External Exam Nose: Normal Inspection Throat/Mouth: Normal Lips, Normal Oropharynx, Normal Voice, No Airway Compromise , Other (edentulous) Head Exam: Normocephalic, Scalp Tenderness (frontal temporal) Neck: Normal Inspection, Tender Midline (mild to maneuver) Respiratory/Chest: Lungs Clear, Normal Breath Sounds, Other (anterior chest tenderness L>R) Cardiovascular: Normal Peripheral Pulses, Regular Rate, Rhythm, No Murmur (Female) Exam: Deferred Rectal (Female) Exam: Deferred Neuro Exam (Abbreviated): Alert, Oriented, CN II-XII Intact, No Motor/Sensory Deficits Back Exam: Normal Inspection Extremities: Normal Inspection Psychiatric: Anxious Skin Exam: Warm, Dry, Intact, Normal Color Course - Vital Signs Text/Narrative:: Following initial assessment, I administered Toradol 30 mg IM x 2 and Ativan 1 mg IM x 2 for sxs relief, and observed over the next 1.5 hrs. Her headache sxs improved to a 6/10, less anxious, and she was discharged clinically improved. Last Recorded V/S: Last Vital Signs Temp 36.8 C 06/24/19 20:18 Pulse 83 06/24/19 20:18 Resp 20 06/24/19 20:18 BP 144/72 H 06/24/19 20:18 Pulse Ox 97 06/24/19 20:18 - Orders/Labs/Meds Orders: Active Orders 24 hr Category Date Time Status LORazepam [Ativan] Med 06/24/19 22:03 Active 1 mg IM ONETIME PRN Medication Orders Lorazepam (Ativan) 1 mg IM ONETIME PRN PRN Reason: Breakthrough Pain Last Admin: 06/24/19 22:10 Dose: 1 mg Meds: Medications Generic Name Dose Route Start Last Admin Trade Name Freq PRN Reason Stop Dose Admin Lorazepam 1 mg 06/24/19 22:03 06/24/19 22:10 Ativan IM 1 mg ONETIME PRN Administration Breakthrough Pain Discontinued Medications Generic Name Dose Route Start Last Admin Trade Name Freq PRN Reason Stop Dose Admin Ketorolac Tromethamine 30 mg 06/24/19 20:59 06/24/19 21:09 Toradol IM 06/24/19 21:00 30 mg ONETIME ONE Administration Ketorolac Tromethamine 30 mg 06/24/19 22:03 06/24/19 22:09 Toradol IM 06/24/19 22:04 30 mg ONETIME ONE Administration Lorazepam 1 mg 06/24/19 20:59 06/24/19 21:10 Ativan IM 06/24/19 21:00 1 mg ONETIME ONE Administration Departure - Departure Time of Disposition: 22:46 Disposition: Home, Self-Care 01 Condition: Fair Clinical Impression: Tension-type headache, Chest wall pain - Discharge Information *PRESCRIPTION DRUG MONITORING PROGRAM REVIEWED*: Not Applicable *COPY OF PRESCRIPTION DRUG MONITORING REPORT IN PATIENT NATALIA: Not Applicable Referrals: Devendra Santos MD [Primary Care Provider] - Forms: ED Department Discharge Sepsis Event Note - Focused Exam Vital Signs: Vital Signs Temp Pulse Resp BP Pulse Ox 06/24/19 20:18 36.8 C 83 20 144/72 H 97 Date Exam was Performed: 06/24/19 Time Exam was Performed: 22:45 - Problem List & Annotations (1) Chest wall pain SNOMED Code(s): 100379000 Code(s): R07.89 - OTHER CHEST PAIN Status: Acute Current Visit: Yes Annotation/Comment:: I suggested NSAIDs for sxs relief. (2) Tension-type headache SNOMED Code(s): 833179173 Code(s): G44.209 - TENSION-TYPE HEADACHE, UNSPECIFIED, NOT INTRACTABLE Status: Acute Current Visit: Yes Annotation/Comment:: Headache improved with NSAIDs and anxiolytic medication. She should be able to sleep tonight. The anniversary of spouse's is tomorrow. - Problem List Review Problem List Initiated/Reviewed/Updated: Yes - My Orders Last 24 Hours: My Active Orders 06/24/19 22:03 LORazepam [Ativan] 1 mg IM ONETIME PRN - Assessment/Plan Last 24 Hours: My Active Orders 06/24/19 22:03 LORazepam [Ativan] 1 mg IM ONETIME PRN Plan: Follow up with PCP if sxs relapse or escalate.
[2019-06-24] MEDS ORDERED: LORazepam 2 MG/ML SDV IM PRN (22:03)
[2019-06-25 00:46] VITALS: BP 118/79; PULSE 86
== END 2019-06-24 22:46 | disposition home or self-care (01) ==
LOC: FB.ED 20:15
DX: G44.209 Tension-type headache, unspecified, not intractable (principal); R07.89 Other chest pain; E78.00 Pure hypercholesterolemia, unspecified; K21.9 Gastro-esophageal reflux disease without esophagitis; M19.90 Unspecified osteoarthritis, unspecified site; F41.9 Anxiety disorder, unspecified; F32.9 Major depressive disorder, single episode, unspecified; Z88.1 Allergy status to other antibiotic agents; Z88.5 Allergy status to narcotic agent; Z88.0 Allergy status to penicillin; Z88.8 Allergy status to other drugs, medicaments and biological substances; Z91.013 Allergy to seafood; Z79.82 Long term (current) use of aspirin; Z79.899 Other long term (current) drug therapy
CPT/HCPCS: 96372; 99284; J1885; J2060; 93005; 99283

== ENCOUNTER 2019-10-09 17:00 | Emergency (ER) | payer MEDICARE, MEDICAID ==
[2019-10-09] MEDS ORDERED: hydrOXYzine HCl 50 MG/ML SDV IM ONE (17:12)
[2019-10-09] MEDS ORDERED: Ketorolac 60 MG/2 ML SDV IM STA (17:12)
[2019-10-09] MEDS ORDERED: predniSONE 20 MG Tab PO ONE (17:12)
[2019-10-09] MEDS ORDERED: Acetaminophen/oxyCODONE 325-5 MG Tab PO STA (17:12)
--- NOTE | 2019-10-09 18:02 | EDM.PDOC ---
ED HPI GENERAL MEDICAL PROBLEM - General Stated Complaint: LOTS OF PAIN,CAN'T SEE Time Seen by Provider: 10/09/19 17:30 Source of Information: Reports: Patient History Limitations: Reports: No Limitations - History of Present Illness INITIAL COMMENTS - FREE TEXT/NARRATIVE: Patient presented to the ED because of headache x 6 weeks,10/10 throbbing behind her eyeballs and frontal area. She took OTC pain medications without relief. She also n/v, no fever, chills or neck stiffness. She also c/o generalized body ache and pain from her fibromyalgia. Headache Pain Score (Numeric/FACES): 10 - Related Data Allergies Allergy/AdvReac Type Severity Reaction Status Date / Time ciprofloxacin [From Cipro] Allergy Rash Verified 05/08/18 19:14 dexamethasone Allergy Cannot Verified 05/08/18 19:14 Remember hydrocodone Allergy Cannot Verified 05/08/18 19:14 Remember neomycin Allergy Cannot Verified 05/08/18 19:14 Remember Penicillins Allergy Rash Verified 05/08/18 19:14 polymyxin B Allergy Cannot Verified 05/08/18 19:14 Remember propoxyphene Allergy Cannot Verified 05/08/18 19:14 Remember shellfish derived Allergy Difficulty Verified 05/08/18 19:14 Swallowing Home Meds: Home Meds Aspirin [Halfprin] 81 mg PO DAILY 12/10/15 [History] Cholecalciferol (Vitamin D3) [Vitamin D3] 2,000 unit PO DAILY 12/10/15 [History] Dorzolamide HCl/Timolol Maleat [Cosopt Eye Drops] 1 drop EYEBOTH BID 12/10/15 [History] Nortriptyline 50 mg PO BEDTIME 12/10/15 [History] Oxybutynin [Oxybutynin ER] 10 mg PO DAILY 12/10/15 [History] Simvastatin [Zocor] 20 mg PO DAILY 12/10/15 [History] sulfaSALAzine 500 mg PO QID 12/10/15 [History] Carboxymethylcellulose Sodium [Refresh Tears] 1 drop EYEBOTH QID 11/09/16 [History] Ezetimibe [Zetia] 5 mg PO DAILY 11/09/16 [History] Potassium Chloride [Klor-Con M20] 20 meq PO DAILY 11/09/16 [History] Ascorbate Calcium [Vitamin C] 1,000 mg PO DAILY 07/12/17 [History] Aspirin [Ecotrin EC] 325 mg PO BID 04/10/18 [History] Calcium Carbonate [Calcium] 500 mg PO Q4H PRN 04/10/18 [History] Linaclotide [Linzess] 145 mcg PO DAILY PRN 04/10/18 [History] Multivitamin with Minerals [Multivitamins with Minerals] 1 tab PO DAILY 04/10/18 [History] Omeprazole 20 mg PO DAILY 04/10/18 [History] Gabapentin [Neurontin] 600 mg PO TID PRN 05/08/18 [History] Acetaminophen/oxyCODONE [Percocet 325-5 MG] 1 each PO Q6H PRN #10 tab 11/14/18 [Rx] Ibuprofen [Motrin] 800 mg PO TID PRN #30 tab 11/14/18 [Rx] Acetaminophen/oxyCODONE [Percocet 325-5 MG] 1 tab PO Q4HR PRN #10 tab 10/09/19 [Rx] Ketorolac [Toradol] 10 mg PO Q8H PRN #10 tab 10/09/19 [Rx] hydrOXYzine pamoate [Vistaril] 50 mg PO Q8H PRN #15 cap 10/09/19 [Rx] predniSONE [Prednisone] 40 mg PO DAILY #10 tablet 10/09/19 [Rx] Past Medical History HEENT History: Reports: Cataract, Hard of Hearing, Impaired Vision Cardiovascular History: Reports: High Cholesterol Respiratory History: Reports: Other (See Below) 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 Gastrointestinal History: Reports: Chronic Constipation, GERD, Irritable Bowel Syndrome Genitourinary History: Reports: Renal Calculus 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 , 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 History: VIII, PARA V ECTOPIC PREGNANCYX 1, AB II Musculoskeletal History: Reports: Arthritis Neurological History: Reports: None Psychiatric History: Reports: Anxiety, Depression Endocrine/Metabolic History: Reports: None Hematologic History: Reports: Anemia Oncologic (Cancer) History: Reports: None - Infectious Disease History Infectious Disease 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 Cardiovascular Surgical History: Reports: None GI Surgical History: Reports: Cholecystectomy, Other (See Below) Other GI Surgeries/Procedures: SURGERY FOR GASTRIC ULCER. VAGUE, CANNOT REMEMBER EXACT PROCEDURES. Female Surgical History: Reports: None Musculoskeletal Surgical History: Reports: None Social & Family History - Family History Family Medical History: Unobtainable - Caffeine Use Caffeine Use: Reports: Coffee ED ROS GENERAL - Review of Systems Review Of Systems: See Below Constitutional: Reports: No Symptoms HEENT: Reports: No Symptoms Respiratory: Reports: No Symptoms Cardiovascular: Reports: No Symptoms Endocrine: Reports: No Symptoms GI/Abdominal: Reports: Nausea, Vomiting : Reports: No Symptoms Musculoskeletal: Reports: No Symptoms Skin: Reports: No Symptoms Neurological: Reports: Headache Psychiatric: Reports: No Symptoms Hematologic/Lymphatic: Reports: No Symptoms ED EXAM, GENERAL - Physical Exam Exam: See Below Exam Limited By: No Limitations General Appearance: Alert, No Apparent Distress Eye Exam: Bilateral Eye: PERRL Ears: Normal External Exam, Normal Canal Nose: Normal Inspection, Normal Mucosa, No Blood Throat/Mouth: Normal Inspection, Normal Lips, Normal Teeth, Normal Gums Head: Atraumatic, Normocephalic Neck: Normal Inspection, Supple, Non-Tender, Full Range of Motion Respiratory/Chest: No Respiratory Distress, Lungs Clear, Normal Breath Sounds Cardiovascular: Normal Peripheral Pulses, Regular Rate, Rhythm, No Edema GI/Abdominal: Normal Bowel Sounds, Soft, Non-Tender, No Organomegaly Back Exam: Normal Inspection, Full Range of Motion Extremities: Normal Inspection, Normal Range of Motion Neurological: Oriented, CN II-XII Intact, Normal Cognition Psychiatric: Normal Affect, Normal Mood Skin Exam: Warm, Intact, Normal Color, No Rash Course - Vital Signs Text/Narrative:: Toradol 60 mg IM Vistaril 50 mg IM Prednisone 20 mg, 2 po x1 Percocet 5/325, 2 po x1 Last Recorded V/S: Last Vital Signs Temp 36.9 C 10/09/19 17:25 Pulse 73 10/09/19 17:25 Resp 18 10/09/19 17:25 BP 122/80 10/09/19 17:25 Pulse Ox 100 10/09/19 17:25 - Orders/Labs/Meds Meds: Medications Discontinued Medications Generic Name Dose Route Start Last Admin Trade Name Freq PRN Reason Stop Dose Admin Hydroxyzine HCl 50 mg 10/09/19 17:12 10/09/19 17:23 Vistaril IM 10/09/19 17:13 50 mg ONETIME ONE Administration Ketorolac Tromethamine 60 mg 10/09/19 17:12 10/09/19 17:23 Toradol IM 10/09/19 17:13 60 mg NOW STA Administration Oxycodone/Acetaminophen 2 tab 10/09/19 17:12 10/09/19 17:23 Percocet 325-5 Mg PO 10/09/19 17:13 2 tab NOW STA Administration Prednisone 40 mg 10/09/19 17:12 10/09/19 17:23 Prednisone PO 10/09/19 17:13 40 mg ONETIME ONE Administration Departure - Departure Time of Disposition: 18:00 Disposition: Home, Self-Care 01 Condition: Good Clinical Impression: Fibromyalgia, Anxiety and depression, Migraine headache - Discharge Information Prescriptions: Acetaminophen/oxyCODONE [Percocet 325-5 MG] 1 tab PO Q4HR PRN #10 tab PRN Reason: Pain predniSONE [Prednisone] 40 mg PO DAILY #10 tablet Ketorolac [Toradol] 10 mg PO Q8H PRN #10 tab PRN Reason: Pain hydrOXYzine pamoate [Vistaril] 50 mg PO Q8H PRN #15 cap PRN Reason: nausea/anxiety/sleep Instructions: Migraine Headache, [id number], Myofascial Pain Syndrome and Fibromyalgia Referrals: PCP,None [Ordering Only Provider] - Forms: ED Department Discharge Additional Instructions: Please read discharge instructions on fibromyalgia and migraine Take the following medicines at the same time for better pain control Toradol 10 mg(1tablet),percocet (2tablets),vistaril 50 mg(1tablet) every 8 hours as needed for pain, nausea and anxiety Prednisone 20 mg, 2 tablets abraham morning for 5 days Follow up as needed
[2019-10-09 19:02] VITALS: BP 122/80; PULSE 73
== END 2019-10-09 18:45 | disposition home or self-care (01) ==
LOC: FB.ED 17:00
DX: G43.909 Migraine, unspecified, not intractable, without status migrainosus (principal); F41.9 Anxiety disorder, unspecified; F32.9 Major depressive disorder, single episode, unspecified; M79.7 Fibromyalgia; E78.00 Pure hypercholesterolemia, unspecified; K21.9 Gastro-esophageal reflux disease without esophagitis; M19.90 Unspecified osteoarthritis, unspecified site; Z88.1 Allergy status to other antibiotic agents; Z88.5 Allergy status to narcotic agent; Z88.0 Allergy status to penicillin; Z88.8 Allergy status to other drugs, medicaments and biological substances; Z91.013 Allergy to seafood; Z79.82 Long term (current) use of aspirin; Z79.899 Other long term (current) drug therapy
CPT/HCPCS: 96372; 99284; A9270-GY; J1885; J3410; J7512

== ENCOUNTER 2020-10-02 16:48 | Emergency (ER) | payer MEDICARE, MEDICAID ==
[2020-10-02] MEDS ORDERED: Ondansetron 4 MG Tab.DIS PO ONE (16:49)
[2020-10-02] MEDS ORDERED: Ondansetron 4 MG/2 ML SDV IVPUSH STA (16:54)
[2020-10-02] MEDS ORDERED: Atropine/Diphenoxylate 0.025-2.5 MG Tab PO STA (17:38)
[2020-10-02] MEDS ORDERED: Iopamidol 755 Mg/ML 100 ML Bottle IV ONE (18:19)
[2020-10-02] MEDS ORDERED: Ketorolac 30 MG/ML SDV IVPUSH STA (19:05)
[2020-10-02] MEDS ORDERED: Morphine 2 MG/ML SYRINGE IVPUSH STA (19:05)
[2020-10-02] MEDS ORDERED: Metoclopramide 10 MG/2 ML SDV IVPUSH STA (19:05)
--- NOTE | 2020-10-02 19:39 | CT ---
INDICATION: Abdominal pain, nausea and vomiting. Abdominal pain is generalized. CT ABDOMEN AND PELVIS WITH CONTRAST: Spiral 3.75 mm axial sections were obtained through the abdomen and pelvis with 100 mL [id number] at 2 mL/second with sagittal and coronal reconstructions 10/02/20 and compared with 03/18/20. There is now noted a new finding of thickening of the wall of the descending colon below the splenic flexure with thickening of the wall of the sigmoid colon, which is redundant, and rectosigmoid colon. This appearance may be on the basis of colitis. The rectum was filled with stool and gas. No evidence of bowel obstruction or free air was seen. The appendix appeared normal, visualized on axial images 78 to 90. Cystic changes are again noted in the liver, likely of benign origin, appearing grossly stable. A small lower pole lateral cortical cyst at the right kidney is stable. The kidneys were otherwise unremarkable. The adrenal glands, spleen and pancreas were similar to the previous examination with fatty replacement of the pancreas. No retroperitoneal mass was seen. Retroperitoneal lymphadenopathy appears similar and nonspecific. No retroperitoneal mass was seen. Calcifications are noted in the abdominal aorta, iliac and femoral arteries. A total hip arthroplasty on the left produces hard beam artifact, limiting visualization in the lower pelvis. No inguinal or ventral hernia was seen. Common bile duct is somewhat dilated, measuring 12 mm near the head of the pancreas and more proximally approximately 21 mm, compared with 9.3 mm in the head of the pancreas and 9.9 mm more proximally - centrally on 03/18/20. A specific obstructive process was not identified, however. This should be correlated clinically. IMPRESSION: 1. Thickening of the wall of the descending, sigmoid and retrosigmoid colon, which may be on the basis of colitis, possibly ulcerative colitis or infectious colitis - correlate clinically. 2. Dilated common bile duct up to 21 mm and although the patient is post cholecystectomy, this should be correlated clinically, as it could represent a distal common bile duct obstruction, as the common bile duct is significantly enlarged compared with the previous study of 03/18/20. 3. Cystic changes in the right kidney and liver are grossly stable. 4. Post cholecystectomy. 5. Post hysterectomy. 6. Compression fracture at L2 appears fairly stable. Report was called to Dr. Rodrigez at 1849 hours, 10/02/20. [facility]
--- NOTE | 2020-10-02 19:54 | EDM.PDOC ---
ED HPI GENERAL MEDICAL PROBLEM - General Chief Complaint: Gastrointestinal Problem Stated Complaint: VOMITING/LOOSE STOOLS Time Seen by Provider: 10/02/20 16:55 Source of Information: Reports: Patient History Limitations: Reports: No Limitations - History of Present Illness INITIAL COMMENTS - FREE TEXT/NARRATIVE: Patient presented to the ED because of N/V/D after drinking milk. She was advised not to drink or eat milk products because of possible lactose intolerance but she did anyway. She also c/o cramping pain all over. there is no fever, chills, urinary symptoms. Bilateral Lower Abdomen Pain Score (Numeric/FACES): 9 - Related Data Allergies Allergy/AdvReac Type Severity Reaction Status Date / Time acetaminophen Allergy Other Verified 05/01/20 13:57 [From Darvocet-N] ciprofloxacin [From Cipro] Allergy Rash Verified 05/01/20 13:57 dexamethasone Allergy Cannot Verified 05/01/20 14:00 Remember neomycin Allergy Cannot Verified 05/01/20 14:00 Remember Penicillins Allergy Rash Verified 05/01/20 13:57 polymyxin B Allergy Cannot Verified 05/01/20 14:00 Remember propoxyphene Allergy Cannot Verified 05/01/20 14:00 Remember shellfish derived Allergy Difficulty Verified 05/01/20 14:00 Swallowing Home Meds: Home Meds Aspirin [Halfprin] 81 mg PO DAILY 12/10/15 [History] Oxybutynin [Oxybutynin ER] 10 mg PO DAILY 12/10/15 [History] Simvastatin [Zocor] 20 mg PO DAILY 12/10/15 [History] sulfaSALAzine 500 mg PO QID 12/10/15 [History] Ezetimibe [Zetia] 5 mg PO DAILY 11/09/16 [History] Potassium Chloride [Klor-Con M20] 20 meq PO DAILY 11/09/16 [History] Calcium Carbonate [Calcium] 500 mg PO Q4H PRN 04/10/18 [History] Linaclotide [Linzess] 145 mcg PO DAILY 04/10/18 [History] Multivitamin with Minerals [Multivitamins with Minerals] 1 tab PO DAILY 04/10/18 [History] Omeprazole 20 mg PO DAILY 04/10/18 [History] Gabapentin [Neurontin] 600 mg PO QID 05/08/18 [History] Ascorbate Calcium [Vitamin C] 1,000 mg PO DAILY 05/01/20 [History] Nuno/D3/Mag11/Zinc/Elephant Tamer/Jens/Bor [Caltrate 600+D Plus Tablet] 2 tab PO DAILY 05/01/20 [History] Carboxymethylcellulose Sodium [Refresh Tears 0.5%] 1 drop EYEBOTH QID 05/01/20 [History] Celecoxib [CeleBREX] 200 mg PO DAILY 05/01/20 [History] Cholecalciferol (Vitamin D3) [Vitamin D3] 50 mcg PO DAILY 05/01/20 [History] Cranberry Fruit [Cranberry] 900 mg PO DAILY 05/01/20 [History] Cyanocobalamin (Vitamin B-12) [Vitamin B12] 2,500 mcg PO DAILY 05/01/20 [History] Dorzolamide/Timolol/Pf [Cosopt Pf Eye Drops] 1 drop EYEBOTH BID 05/01/20 [History] Escitalopram Oxalate [Lexapro] 40 mg PO DAILY 05/01/20 [History] Ferrous Sulfate 325 mg PO DAILY 05/01/20 [History] Gabapentin [Neurontin] 600 mg PO TID PRN 05/01/20 [History] Garlic 1,000 mg PO DAILY 05/01/20 [History] L.acidoph,Paracasei, B.lactis [Probiotic] 1 cap PO DAILY 05/01/20 [History] Lactulose [Cephulac] 30 ml PO DAILY PRN 05/01/20 [History] Meloxicam [Mobic] 15 mg PO DAILY 05/01/20 [History] Multivitamin with Minerals [Multiple Vitamin] 2 tab PO DAILY 05/01/20 [History] Nortriptyline 50 mg PO DAILY 05/01/20 [History] Propylene Glycol [Systane Complete] 1 drop EYEBOTH QID 05/01/20 [History] Sennosides/Docusate Sodium [Senna-Docusate Sodium Tablet] 1 tab PO BID PRN 05/01/20 [History] Temazepam [Restoril] 15 mg PO BEDTIME 05/01/20 [History] Turmeric Root Extract [Turmeric] 500 mg PO DAILY 05/01/20 [History] Varenicline [Chantix] 1 mg PO BID 05/01/20 [History] Vitamin B Complex 2 cap PO DAILY 05/01/20 [History] diazePAM [Valium.] 5 mg PO TID PRN 05/01/20 [History] diphenhydrAMINE [Benadryl] 50 mg PO BEDTIME 05/01/20 [History] polyethylene glycoL 3350 [MiraLAX] 17 gm PO DAILY PRN 05/01/20 [History] Past Medical History HEENT History: Reports: Cataract, Hard of Hearing, Impaired Vision, Other (See Below) Other HEENT History: TMJ Cardiovascular History: Reports: High Cholesterol Respiratory History: Reports: Other (See Below) Other Respiratory History: 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 Gastrointestinal History: Reports: Chronic Constipation, Colon Polyp, GERD, Irritable Bowel Syndrome, Other (See Below) Other Gastrointestinal History: DYSPHAGIA, GASTRITIS, GASTRODUODENITIS Genitourinary History: Reports: Renal Calculus, UTI, Recurrent Other Genitourinary History: ATONIC BLADDER, GROSS HEMATURIA TIMBER SPOTTER History: Reports: Ectopic , Other TIMBER SPOTTER History: VIII, PARA V ECTOPIC PREGNANCYX 1, AB II, VAGINAL PAIN Musculoskeletal History: Reports: Arthritis Other Musculoskeletal History: MYALGIA, MYOSITIS, LUMBAGO, CERVICAL DDD, RIGHT WRIST FRACTURE, Neurological History: Reports: None Psychiatric History: Reports: Anxiety, Depression Other Psychiatric History: INSOMNIA Endocrine/Metabolic History: Reports: Other (See Below) Other Endocrine/Metabolic History: DYSTHYMIC DISORDER Hematologic History: Reports: Anemia Oncologic (Cancer) History: Reports: None, Other (See Below) Other Oncologic History: BLADDER NEOPLASM, PANCREATIC PSEUDOCYST - Infectious Disease History Infectious Disease 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 YAG CAPSULOTOMY Cardiovascular Surgical History: Reports: None GI Surgical History: Reports: Cholecystectomy, Colonoscopy, Other (See Below) Other GI Surgeries/Procedures: SURGERY FOR GASTRIC ULCER. VAGUE, CANNOT REMEMBER EXACT PROCEDURES. Female Surgical History: Reports: None, Hysterectomy Musculoskeletal Surgical History: Reports: Carpal Tunnel, Other (See Below) Other Musculoskeletal Surgeries/Procedures:: L hip replacement, RIGHT WRIST DEBRIDEMENT, ORIF RIGHT ARM Social & Family History - Family History Family Medical History: Unobtainable - Tobacco Use Tobacco Use Status *Q: Current Every Day Tobacco User Years of Tobacco use: 50 Packs/Tins Daily: 0.5 - Caffeine Use Caffeine Use: Reports: Coffee, Soda - Recreational Drug Use Recreational Drug Use: No ED ROS GENERAL - Review of Systems Review Of Systems: See Below Constitutional: Reports: No Symptoms HEENT: Reports: No Symptoms Respiratory: Reports: No Symptoms Cardiovascular: Reports: No Symptoms Endocrine: Reports: No Symptoms GI/Abdominal: Reports: Diarrhea, Nausea, Vomiting : Reports: No Symptoms Musculoskeletal: Reports: No Symptoms Skin: Reports: No Symptoms Neurological: Reports: No Symptoms Psychiatric: Reports: No Symptoms ED EXAM, GI/ABD - Physical Exam Exam: See Below Exam Limited By: No Limitations General Appearance: Alert, No Apparent Distress Ears: Normal External Exam, Normal Canal, Hearing Grossly Normal Nose: Normal Inspection, Normal Mucosa, No Blood Throat/Mouth: Normal Inspection, Normal Lips, Normal Teeth, Normal Gums Head: Atraumatic, Normocephalic Neck: Normal Inspection, Supple, Non-Tender, Full Range of Motion Respiratory/Chest: No Respiratory Distress, Lungs Clear, Normal Breath Sounds Cardiovascular: Normal Peripheral Pulses, Regular Rate, Rhythm, No Edema, No Gallop, No JVD, No Murmur, No Rub GI/Abdominal Exam: Soft, Other (tenderness over the epigastrium and LLQ) Back Exam: Normal Inspection, Full Range of Motion Extremities: Normal Inspection, Normal Range of Motion, Non-Tender, No Pedal Edema, Normal Capillary Refill Neurological: Alert, Oriented, CN II-XII Intact, Normal Cognition Psychiatric: Normal Affect Course - Vital Signs Text/Narrative:: Lab/CT abd-pelvis result was reviewed and discussed with patient Zofran 4 mg IV x1 Reglan 5 mg IV x1 Lomotil 2 tabs PO x1 Toradol 15 mg IV x1 Morphine 2 mg IV x1 Last Recorded V/S: Last Vital Signs Temp 37.3 C 10/02/20 20:10 Pulse 81 10/02/20 20:10 Resp 16 10/02/20 20:10 BP 128/58 L 10/02/20 20:10 Pulse Ox 98 10/02/20 20:10 - Orders/Labs/Meds Labs: Laboratory Tests 10/02/20 10/02/20 Range/Units 17:13 17:13 WBC 11.3 H (3.0-10.3) x10-3/uL RBC 4.47 (3.60-5.20) x10(6)uL Hgb 13.7 (11.4-15.5) g/dL Hct 41.9 (34.2-48.2) % MCV 93.7 (76.7-100.5) fL MCH 30.7 (23.9-33.9) pg MCHC 32.7 (31.9-34.8) g/dL RDW 13.2 (12.3-16.5) % Plt Count 371 (151-488) x10(3)uL MPV 6.2 L (7.1-12.4) fL Neut % (Auto) 67.6 (30.8-76.2) % Lymph % (Auto) 20.2 (18.4-52.1) % [place] % (Auto) 9.9 (4.4-15.7) % Eos % (Auto) 2.0 (0.6-8.1) % Baso % (Auto) 0.3 (0.2-1.5) % Neut # (Auto) 7.6 H (1.5-6.3) x10-3/uL Lymph # (Auto) 2.3 (1.0-4.4) x10-3/uL [place] # (Auto) 1.1 H (0.3-1.0) x10-3/uL Eos # (Auto) 0.2 (0.0-0.8) x10-3/uL Baso # (Auto) 0.0 (0.0-0.1) x10-3/uL Sodium 143 (135-145) mmol/L Potassium 3.9 (3.5-5.3) mmol/L Chloride 105 D (100-110) mmol/L Carbon Dioxide 29 (21-32) mmol/L BUN 20 H D (7-18) mg/dL Creatinine 0.9 (0.55-1.02) mg/dL Est Cr Clr Drug Dosing TNP Estimated GFR (MDRD) > 60 (>60) BUN/Creatinine Ratio 22.2 H (9-20) Glucose 109 (80-116) mg/dL Calcium 9.4 (8.6-10.2) mg/dL Meds: Medications Discontinued Medications Generic Name Dose Route Start Last Admin Trade Name Freq PRN Reason Stop Dose Admin Diphenoxylate HCl/Atropine 2 tab 10/02/20 17:38 10/02/20 17:57 Atropine/Diphenoxylate 0.025-2.5 Mg Tab PO 10/02/20 17:39 2 tab NOW STA Administration Iopamidol 100 ml 10/02/20 18:19 10/02/20 18:31 Iopamidol 755 Mg/Ml 100 Ml Bottle IV 10/02/20 18:20 100 ml . DIRECTED ONE Administration Ketorolac Tromethamine 15 mg 10/02/20 19:05 10/02/20 19:35 Ketorolac 30 Mg/Ml Sdv IVPUSH 10/02/20 19:06 15 mg NOW STA Administration Metoclopramide HCl 5 mg 10/02/20 19:05 10/02/20 19:39 Metoclopramide 10 Mg/2 Ml Sdv IVPUSH 10/02/20 19:06 5 mg NOW STA Administration Morphine Sulfate 2 mg 10/02/20 19:05 10/02/20 19:50 Morphine 2 Mg/Ml Syringe IVPUSH 10/02/20 19:06 2 mg NOW STA Administration Ondansetron HCl 4 mg 10/02/20 16:54 10/02/20 17:50 Ondansetron 4 Mg/2 Ml Sdv IVPUSH 10/02/20 16:55 4 mg NOW STA Administration Departure - Departure Time of Disposition: 20:00 Disposition: Home, Self-Care 01 Condition: Good Clinical Impression: Gastroenteritis, Dehydration - Discharge Information Instructions: Viral Gastroenteritis, Adult, [id number], Dehydration, Elderly Referrals: Devendra Santos MD [Primary Care Provider] - Forms: ED Department Discharge Additional Instructions: Please read discharge instructions on gastroenteritis and dehydration Frequent hand washing Drink at least 2 liters of water daily Lomotil 2 tablets every 6 hours as needed for diarrhea as prescribed by your doctor Zofran ODT 4 mg every 4 hours as needed for nausea Do no take your miralax because it can cause more diarrhea Follow up as needed Sepsis Event Note (ED) - Evaluation Sepsis Screening Result: No Definite Risk
[2020-10-02 21:17] VITALS: BP 128/58; PULSE 81
== END 2020-10-02 20:20 | disposition home or self-care (01) ==
LOC: FB.ED 16:48
DX: K52.9 Noninfective gastroenteritis and colitis, unspecified (principal); E86.0 Dehydration; E78.00 Pure hypercholesterolemia, unspecified; K21.9 Gastro-esophageal reflux disease without esophagitis; Z72.0 Tobacco use; Z88.0 Allergy status to penicillin; Z88.1 Allergy status to other antibiotic agents; Z88.8 Allergy status to other drugs, medicaments and biological substances; Z91.013 Allergy to seafood; Z79.82 Long term (current) use of aspirin; Z79.899 Other long term (current) drug therapy
CPT/HCPCS: 36415; 74177; 80048; 85025; 96374; 96375; 99285; A9270; J1885; J2270; J2405; J2765; Q9967

== ENCOUNTER 2022-06-02 16:11 | Emergency (ER) | payer MEDICARE ==
[2022-06-02] MEDS ORDERED: Sulfamethoxazole/Trimethoprim 800-160 MG Tab PO ONE (16:12)
[2022-06-02] MEDS ORDERED: traMADol 50 MG Tab PO ONE ×2 (16:12→18:33)
[2022-06-02 16:44] LABS: ESTIMATED GFR 80 mL/min (>60)
[2022-06-02] MEDS ORDERED: Ketorolac 30 MG/ML SDV IVPUSH ONE (17:25)
[2022-06-02] MEDS ORDERED: Sodium Chloride 0.9% 1,000 ML IV SCH (17:30)
[2022-06-02] MEDS ORDERED: Ondansetron 4 MG Tab.DIS PO ONE (18:31)
[2022-06-02] MEDS ORDERED: Acetaminophen 500 MG Tab PO ONE (18:33)
[2022-06-02] MEDS ORDERED: methylPREDNISolone Sodium Succinate 125 MG/2 ML SDV IVPUSH ONE (19:17)
[2022-06-02] MEDS ORDERED: Calcium Carbonate 500 MG Tab.Chew PO ONE (19:28)
[2022-06-02 20:02] VITALS: BP 135/75; PULSE 71
== END 2022-06-02 19:45 | disposition home or self-care (01) ==
LOC: FB.ED 16:11
DX: M79.7 Fibromyalgia (principal); N39.0 Urinary tract infection, site not specified; E86.0 Dehydration; E78.00 Pure hypercholesterolemia, unspecified; K21.9 Gastro-esophageal reflux disease without esophagitis; Z88.1 Allergy status to other antibiotic agents; Z91.013 Allergy to seafood; Z88.8 Allergy status to other drugs, medicaments and biological substances; Z79.82 Long term (current) use of aspirin; Z79.899 Other long term (current) drug therapy
CPT/HCPCS: 36415; 70450; 71045; 80053; 81001; 82947; 83605; 84443; 85025; 87086; 93005; 96361; 96374; 96375; 99285-25; A9270-GY; J1885; J2930; J7030; Q0162

== ENCOUNTER 2022-09-30 21:43 | Emergency (ER) | payer MEDICARE ==
[2022-09-30] MEDS ORDERED: carBAMazepine 100 MG/5 ML Susp ML 450 ML Bottle PO ONE (22:43)
[2022-09-30] MEDS ORDERED: Ketorolac 30 MG/ML SDV IM ONE (22:44)
[2022-09-30] MEDS ORDERED: carBAMazepine 200 MG Tab PO ONE (22:50)
[2022-09-30 23:25] VITALS: BP 139/68; PULSE 81
[2022-10-04] MEDS ORDERED: carBAMazepine 200 MG Tab PO ONE (08:10)
[2022-10-04] MEDS ORDERED: Ketorolac 30 MG/ML SDV IM ONE (08:10)
== END 2022-09-30 23:20 | disposition home or self-care (01) ==
LOC: FB.ED 21:43
DX: G50.0 Trigeminal neuralgia (principal); E78.00 Pure hypercholesterolemia, unspecified; J44.9 Chronic obstructive pulmonary disease, unspecified; F17.210 Nicotine dependence, cigarettes, uncomplicated; Z88.1 Allergy status to other antibiotic agents; Z88.0 Allergy status to penicillin; Z88.8 Allergy status to other drugs, medicaments and biological substances; Z91.013 Allergy to seafood; Z79.82 Long term (current) use of aspirin; Z79.899 Other long term (current) drug therapy; Z90.49 Acquired absence of other specified parts of digestive tract
CPT/HCPCS: 96372; 99283; A9270-GY; J1885

== ENCOUNTER 2022-10-23 18:59 | Emergency (ER) | payer MEDICARE ==
[2022-10-23] MEDS ORDERED: traMADol 50 MG Tab PO ONE ×2 (19:00→19:13)
[2022-10-23] MEDS ORDERED: Gabapentin 300 MG Cap PO ONE (19:13)
[2022-10-23] MEDS ORDERED: Ketorolac 30 MG/ML SDV IM ONE (19:13)
[2022-10-23] MEDS ORDERED: hydrOXYzine HCl 50 MG/ML SDV IM ONE (19:15)
[2022-10-23 20:51] VITALS: BP 115/72; PULSE 94
== END 2022-10-23 20:28 | disposition home or self-care (01) ==
LOC: FB.ED 18:59
DX: G50.0 Trigeminal neuralgia (principal); E78.00 Pure hypercholesterolemia, unspecified; J44.9 Chronic obstructive pulmonary disease, unspecified; F17.200 Nicotine dependence, unspecified, uncomplicated; K21.9 Gastro-esophageal reflux disease without esophagitis; Z88.0 Allergy status to penicillin; Z88.1 Allergy status to other antibiotic agents; Z91.013 Allergy to seafood; Z88.8 Allergy status to other drugs, medicaments and biological substances
CPT/HCPCS: 96372; 99283; A9270; J1885; J3410

== ENCOUNTER 2022-11-09 17:45 | Emergency (ER) | payer MEDICARE ==
[2022-11-09] MEDS ORDERED: Sodium Chloride 0.9% 1,000 ML IV ONE (18:00)
[2022-11-09] MEDS ORDERED: Sodium Chloride 0.9% 10 ML Syringe FLUSH PRN (18:37)
[2022-11-09 18:54] LABS: BASOPHILS PERCENT AUTO 0.5 % (0.2-1.5); EOSINOPHILS ABSOLUTE AUTO 0.1 x10-3/uL (0.0-0.8); EOSINOPHILS PERCENT AUTO 1.5 % (0.6-8.1); HEMATOCRIT 34.9 % (34.2-48.2); HEMOGLOBIN 11.8 g/dL (11.4-15.5); LYMPHOCYTES ABSOLUTE AUTO 1.5 x10-3/uL (1.0-4.4); LYMPHOCYTES PERCENT AUTO 23.9 % (18.4-52.1); MEAN CORPUSCULAR HEMOGLOBIN 31.3 pg (23.9-33.9); MEAN CORPUSCULAR HGB CONC 33.9 g/dL (31.9-34.8); MEAN CORPUSCULAR VOLUME 92.4 fL (76.7-100.5); MONOCYTES ABSOLUTE AUTO 0.6 x10-3/uL (0.3-1.0); MONOCYTES PERCENT AUTO 9.5 % (4.4-15.7); NEUTROPHILS ABSOLUTE AUTO 4.1 x10-3/uL (1.5-6.3); NEUTROPHILS PERCENT AUTO 64.6 % (30.8-76.2); PLATELET COUNT,PLT 327 x10(3)uL (151-488); RED BLOOD CELL COUNT 3.78 x10(6)uL (3.60-5.20); RED CELL DISTRIBUTION WIDTH 13.9 % (12.3-16.5); WHITE BLOOD CELL COUNT,WBC 6.4 x10-3/uL (3.0-10.3)
[2022-11-09 18:57] LABS: BLOOD UREA NITROGEN,BUN 15 mg/dL (7-18); BUN/CREATININE RATIO 18.8 (9-20); CALCIUM 8.6 mg/dL (8.6-10.2); CARBON DIOXIDE,CO2 27 mmol/L (21-32); CHLORIDE,CL 105 mmol/L (100-110); CREATININE 0.8 mg/dL (0.55-1.02); ESTIMATED GFR 80 mL/min (>60); GLUCOSE RANDOM 103 mg/dL (80-116); POTASSIUM,K 4.1 mmol/L (3.5-5.3); SODIUM,NA 141 mmol/L (135-145)
[2022-11-09 19:03] LABS: ALANINE AMINOTRANSFERASE,ALT 18 U/L (12-36); ALBUMIN 3.2 g/dL (3.2-4.6); ALKALINE PHOSPHATASE 80 IU/L (56-112); ASPARTATE AMNIOTRANSFERASE,AST 9 IU/L (5-25); BILIRUBIN TOTAL 0.2 mg/dL (0.1-1.3); PROTEIN TOTAL,TP 6.4 g/dL (6.0-8.0)
[2022-11-09 19:20] VITALS: BP 64/44; PULSE 82
[2022-11-09] MEDS ORDERED: Ketorolac 30 MG/ML SDV IVPUSH ONE (19:20)
[2022-11-09] MEDS ORDERED: traMADol 50 MG Tab PO ONE (19:20)
== END 2022-11-09 21:37 | disposition home or self-care (01) ==
LOC: FB.ED 17:45
DX: S09.90XA Unspecified injury of head, initial encounter (principal); F17.210 Nicotine dependence, cigarettes, uncomplicated; E78.00 Pure hypercholesterolemia, unspecified; J44.9 Chronic obstructive pulmonary disease, unspecified; Z79.82 Long term (current) use of aspirin; Z79.899 Other long term (current) drug therapy; Z88.1 Allergy status to other antibiotic agents; Z88.8 Allergy status to other drugs, medicaments and biological substances; Z88.0 Allergy status to penicillin; Z91.013 Allergy to seafood; W18.30XA Fall on same level, unspecified, initial encounter
CPT/HCPCS: 36415; 70450; 80053; 84484; 85025; 93005; 96361; 96374; 99285; A9270; J1885; J7030

== ENCOUNTER 2022-12-01 14:39 | Emergency (ER) | payer MEDICARE ==
[2022-12-01] MEDS ORDERED: traMADol 50 MG Tab PO ONE ×2 (14:40→16:28)
[2022-12-01] MEDS ORDERED: Ketorolac 30 MG/ML SDV IM ONE (16:28)
[2022-12-01] MEDS ORDERED: Ondansetron 4 MG Tab.DIS PO ONE (16:28)
[2022-12-01] MEDS ORDERED: Acetaminophen 500 MG Tab PO ONE (16:28)
[2022-12-01 18:03] VITALS: BP 122/65; PULSE 66
== END 2022-12-01 17:45 | disposition home or self-care (01) ==
LOC: FB.ED 14:39
DX: G50.0 Trigeminal neuralgia (principal); J44.9 Chronic obstructive pulmonary disease, unspecified; F17.210 Nicotine dependence, cigarettes, uncomplicated; Z88.1 Allergy status to other antibiotic agents; Z88.0 Allergy status to penicillin; Z91.013 Allergy to seafood; Z79.82 Long term (current) use of aspirin
CPT/HCPCS: 96372; 99283; A9270; J1885; Q0162

== ENCOUNTER 2023-03-29 13:40 | Inpatient (IN) | payer MEDICAID, MEDICARE ==
[2023-03-29] MEDS: Ondansetron 4 MG/2 ML SDV IVPUSH ONE (14:05)
[2023-03-29] MEDS: Morphine 4 MG/ML VIAL IVPUSH ONE (14:05)
[2023-03-29] MEDS: Sodium Chloride 0.9% 1,000 ML IV SCH ×2 (14:06→19:54)
[2023-03-29 14:09] LABS: BASOPHILS PERCENT AUTO 0.6 % (0.2-1.5); EOSINOPHILS ABSOLUTE AUTO 0.2 x10-3/uL (0.0-0.8); EOSINOPHILS PERCENT AUTO 2.8 % (0.6-8.1); HEMATOCRIT 37.3 % (34.2-48.2); HEMOGLOBIN 12.4 g/dL (11.4-15.5); LYMPHOCYTES ABSOLUTE AUTO 2.8 x10-3/uL (1.0-4.4); LYMPHOCYTES PERCENT AUTO 35.1 % (18.4-52.1); MEAN CORPUSCULAR HEMOGLOBIN 30.1 pg (23.9-33.9); MEAN CORPUSCULAR HGB CONC 33.2 g/dL (31.9-34.8); MEAN CORPUSCULAR VOLUME 90.6 fL (76.7-100.5); MEAN PLATELET VOLUME 6.3 fL (7.1-12.4); MONOCYTES ABSOLUTE AUTO 0.6 x10-3/uL (0.3-1.0); MONOCYTES PERCENT AUTO 7.9 % (4.4-15.7); NEUTROPHILS ABSOLUTE AUTO 4.3 x10-3/uL (1.5-6.3); NEUTROPHILS PERCENT AUTO 53.6 % (30.8-76.2); PLATELET COUNT,PLT 306 x10(3)uL (151-488); RED BLOOD CELL COUNT 4.12 x10(6)uL (3.60-5.20); RED CELL DISTRIBUTION WIDTH 14.1 % (12.3-16.5)
[2023-03-29 14:22] LABS: A/G RATIO 0.9; ALANINE AMINOTRANSFERASE,ALT 17 U/L (12-36); ALBUMIN 3.5 g/dL (3.2-4.6); ALKALINE PHOSPHATASE 82 IU/L (56-112); AMYLASE 40 U/L (25-115); ASPARTATE AMNIOTRANSFERASE,AST 10 IU/L (5-25); BILIRUBIN TOTAL 0.5 mg/dL (0.1-1.3); BLOOD UREA NITROGEN,BUN 19 mg/dL (7-18); BUN/CREATININE RATIO 31.7 (9-20); CALCIUM 9.6 mg/dL (8.6-10.2); CARBON DIOXIDE,CO2 30 mmol/L (21-32); CHLORIDE,CL 100 mmol/L (100-110); CREATININE 0.6 mg/dL (0.55-1.02); EST CRCL DRUG DOSING (CG) 69.99 mL/min; ESTIMATED GFR 97 mL/min (>60); GLUCOSE RANDOM 93 mg/dL (80-116); POTASSIUM,K 4.2 mmol/L (3.5-5.3); PROTEIN TOTAL,TP 7.3 g/dL (6.0-8.0); SODIUM,NA 136 mmol/L (135-145)
[2023-03-29 14:56] LABS: BILIRUBIN,URINE NEGATIVE (NEGATIVE); GLUCOSE,URINE NORMAL (NORMAL); KETONES,URINE NEGATIVE (NEGATIVE); LEUKOCYTE ESTERASE,URINE MODERATE (NEGATIVE); NITRITE,URINE NEGATIVE (NEGATIVE); OCCULT BLOOD,URINE NEGATIVE (NEGATIVE); PROTEIN,URINE NEGATIVE (NEGATIVE); UROBILINOGEN,URINE NORMAL (NEGATIVE)
[2023-03-29 14:58] LABS: AMORPHOUS SEDIMENT,URINE FEW; APPEARANCE,URINE SLIGHTLY CLOUDY (CLEAR); BACTERIA,URINE MODERATE (NS); COLOR,URINE YELLOW (YELLOW); RBC,URINE 0-5 (0-5); SQUAMOUS EPITHELIAL CELLS,UR FEW (NS,R,O)
[2023-03-29] MEDS: Morphine 2 MG/ML SYRINGE IVPUSH ONE (15:35)
[2023-03-29] MEDS: Iopamidol 755 Mg/ML 100 ML Bottle IV SCH (15:36)
[2023-03-29] MEDS: Sulfamethoxazole/Trimethoprim 800-160 MG Tab PO ONE (15:36)
[2023-03-29] MEDS: Sodium Chloride 0.9% 500 ML IV ONE (15:45)
[2023-03-29] MEDS ORDERED: Ondansetron 4 MG/2 ML SDV IVPUSH PRN (17:28)
[2023-03-29] MEDS: traMADol 50 MG Tab PO SCH (19:08)
[2023-03-29] MEDS: cefTRIAXone 1 GM Vial IVPUSH SCH (19:08)
[2023-03-29 19:40] LABS: INFLUENZA A NAA NEGATIVE (NEGATIVE); INFLUENZA B NAA NEGATIVE (NEGATIVE); RESPIRATORY SYNCYTIAL VIR NAA NEGATIVE (NEGATIVE)
[2023-03-29 19:41] LABS: CORONAVIRUS COVID-19 NAA NEGATIVE (NEGATIVE)
[2023-03-29] MEDS: Enoxaparin 40 MG/0.4 ML Syringe SUBCUT SCH (19:55)
[2023-03-30] MEDS: Acetaminophen/oxyCODONE 325-5 MG Tab PO PRN (02:51)
[2023-03-30 06:44] LABS: BASOPHILS ABSOLUTE AUTO 0.1 x10-3/uL (0.0-0.1); BASOPHILS PERCENT AUTO 0.9 % (0.2-1.5); EOSINOPHILS ABSOLUTE AUTO 0.2 x10-3/uL (0.0-0.8); EOSINOPHILS PERCENT AUTO 2.1 % (0.6-8.1); HEMATOCRIT 33.6 % (34.2-48.2); HEMOGLOBIN 11.1 g/dL (11.4-15.5); LYMPHOCYTES ABSOLUTE AUTO 2.3 x10-3/uL (1.0-4.4); LYMPHOCYTES PERCENT AUTO 27.8 % (18.4-52.1); MEAN CORPUSCULAR HEMOGLOBIN 30.5 pg (23.9-33.9); MEAN CORPUSCULAR HGB CONC 33.2 g/dL (31.9-34.8); MEAN CORPUSCULAR VOLUME 91.9 fL (76.7-100.5); MEAN PLATELET VOLUME 6.7 fL (7.1-12.4); MONOCYTES ABSOLUTE AUTO 0.7 x10-3/uL (0.3-1.0); MONOCYTES PERCENT AUTO 8.9 % (4.4-15.7); NEUTROPHILS PERCENT AUTO 60.3 % (30.8-76.2); PLATELET COUNT,PLT 236 x10(3)uL (151-488); RED BLOOD CELL COUNT 3.66 x10(6)uL (3.60-5.20); RED CELL DISTRIBUTION WIDTH 14.1 % (12.3-16.5); WHITE BLOOD CELL COUNT,WBC 8.4 x10-3/uL (3.0-10.3)
[2023-03-30 06:49] LABS: A/G RATIO 0.9; ALANINE AMINOTRANSFERASE,ALT 17 U/L (12-36); ALBUMIN 2.9 g/dL (3.2-4.6); ALKALINE PHOSPHATASE 74 IU/L (56-112); ASPARTATE AMNIOTRANSFERASE,AST 17 IU/L (5-25); BILIRUBIN TOTAL 0.2 mg/dL (0.1-1.3); BLOOD UREA NITROGEN,BUN 11 mg/dL (7-18); BUN/CREATININE RATIO 15.7 (9-20); CALCIUM 8.4 mg/dL (8.6-10.2); CARBON DIOXIDE,CO2 29 mmol/L (21-32); CHLORIDE,CL 105 mmol/L (100-110); CREATININE 0.7 mg/dL (0.55-1.02); EST CRCL DRUG DOSING (CG) 59.99 mL/min; ESTIMATED GFR 94 mL/min (>60); GLUCOSE RANDOM 86 mg/dL (80-116); POTASSIUM,K 4.5 mmol/L (3.5-5.3); PROTEIN TOTAL,TP 6.1 g/dL (6.0-8.0); SODIUM,NA 139 mmol/L (135-145)
[2023-03-30] MEDS: hydrOXYzine HCl 25 MG Tab PO PRN (11:38)
[2023-03-30] MEDS ORDERED: Ondansetron 4 MG Tab.DIS PO PRN (12:03)
[2023-03-30] MEDS ORDERED: Carboxymethylcellulose Sodium 0.5% Ophth Soln 15 ML Bottle EYEBOTH PRN (12:03)
[2023-03-30] MEDS ORDERED: Lactulose Soln 10 GM/15 ML 15 ML UD Cup PO PRN (12:13)
[2023-03-30] MEDS: Cranberry 500 MG Cap PO SCH (13:22)
[2023-03-30] MEDS: Dorzolamide/Timolol 2%-0.5% Ophth Soln 10 ML Bottle EYEBOTH SCH (13:22)
[2023-03-30] MEDS: Polyethylene Glycol 3350 Powder 17 GM Packet PO SCH (13:23)
[2023-03-30] MEDS: LACOSAMIDE 200 MG PO SCH (13:23)
[2023-03-30] MEDS: Mirabegron 25 MG Tab Extended Release PO SCH (13:23)
[2023-03-30] MEDS: Escitalopram 20 MG Tab PO SCH (13:23)
[2023-03-30] MEDS: Sennosides/Docusate Sodium 50-8.6 MG Tab PO SCH (13:24)
[2023-03-30] MEDS: Pantoprazole 40 MG Tab.CR PO SCH (13:24)
[2023-03-30] MEDS: Multivitamins with Iron/Calcium/Folic Acid/Minerals Tab PO SCH (13:24)
[2023-03-30] MEDS: Gabapentin 100 MG Cap PO SCH (13:31)
[2023-03-30] MEDS: Bisacodyl 5 MG Tab PO PRN (20:53)
[2023-03-31] MEDS: Alum Hydroxide/Mag Hydroxide 15 ML, Lidocaine 2% 15 ML PO ONE (09:09)
[2023-03-31] MEDS: Gabapentin 100 MG Cap PO PRN (13:37)
[2023-03-31] MEDS: hydrOXYzine HCl 25 MG Tab PO PRN (17:07)
[2023-03-31] MEDS: Sodium Chloride 0.9% 10 ML Syringe FLUSH PRN (18:32)
[2023-04-01] MEDS: HYDROmorphone 2 MG/ML SDV IVPUSH ONE (03:00)
[2023-04-01] MEDS ORDERED: Pantoprazole 40 MG Tab.CR PO SCH (07:30)
[2023-04-01 14:35] VITALS: BP 105/59; PULSE 69
== END 2023-04-01 09:30 | disposition swing bed (61) | DRG 552 ==
LOC: FB.ED 13:40 → FB.MS 17:53
PROVIDERS: ADMIT Emergency Medicine; ATTEND Family Medicine
DX: M48.02 Spinal stenosis, cervical region (principal); N39.0 Urinary tract infection, site not specified; R53.1 Weakness; R33.9 Retention of urine, unspecified; B95.2 Enterococcus as the cause of diseases classified elsewhere; G50.0 Trigeminal neuralgia; M79.7 Fibromyalgia; Z51.5 Encounter for palliative care; R29.6 Repeated falls; K83.8 Other specified diseases of biliary tract; F41.9 Anxiety disorder, unspecified; F32.9 Major depressive disorder, single episode, unspecified; R32 Unspecified urinary incontinence; M89.9 Disorder of bone, unspecified; H91.90 Unspecified hearing loss, unspecified ear; E78.00 Pure hypercholesterolemia, unspecified; Z88.1 Allergy status to other antibiotic agents; J44.9 Chronic obstructive pulmonary disease, unspecified; F17.210 Nicotine dependence, cigarettes, uncomplicated; K59.09 Other constipation; K21.9 Gastro-esophageal reflux disease without esophagitis; Z96.642 Presence of left artificial hip joint; M19.90 Unspecified osteoarthritis, unspecified site; G47.00 Insomnia, unspecified; Z98.49 Cataract extraction status, unspecified eye; Z90.710 Acquired absence of both cervix and uterus; Z79.899 Other long term (current) drug therapy; Z90.49 Acquired absence of other specified parts of digestive tract; Z88.0 Allergy status to penicillin; Z88.8 Allergy status to other drugs, medicaments and biological substances; Z91.013 Allergy to seafood; Z86.010 Personal history of colon polyps; Z87.442 Personal history of urinary calculi; Z98.890 Other specified postprocedural states
CPT/HCPCS: 0241U; 36415; 51702; 70450; 71101-RT; 71250; 72072; 72100; 72125; 73030-RT; 73502-RT; 73560-RT; 74177; 80053; 81001; 82150; 82550; 83690; 84484; 85025; 87086; 87088; 87186; 93010; 96361; 96374; 96375; 96376; 97161-GP; 97165-GO; 97530-GO; 99222; 99232; 99285; 99285-25; A9270-GY; J0696; J1170; J1650; J2270; J2405; J3490; J7030; J7040; Q9967

== ENCOUNTER 2023-04-01 09:30 | Inpatient (IN) | payer MEDICARE ==
[2023-04-01] MEDS ORDERED: Carboxymethylcellulose Sodium 0.5% Ophth Soln 15 ML Bottle EYEBOTH PRN (09:49)
[2023-04-01] MEDS ORDERED: Bisacodyl 5 MG Tab PO PRN (09:49)
[2023-04-01] MEDS: LACOSAMIDE 200 MG PO SCH ×2 (10:00→11:24)
[2023-04-01] MEDS ORDERED: Lactulose Soln 10 GM/15 ML 15 ML UD Cup PO PRN (10:01)
[2023-04-01] MEDS: Dorzolamide/Timolol 2%-0.5% Ophth Soln 10 ML Bottle EYEBOTH SCH (10:13)
[2023-04-01] MEDS: Mirabegron 25 MG Tab Extended Release PO SCH (10:14)
[2023-04-01] MEDS: Gabapentin 100 MG Cap PO SCH (10:14)
[2023-04-01] MEDS: Cranberry 500 MG Cap PO SCH (10:14)
[2023-04-01] MEDS: Escitalopram 20 MG Tab PO SCH (10:14)
[2023-04-01] MEDS: Multivitamins with Iron/Calcium/Folic Acid/Minerals Tab PO SCH (10:15)
[2023-04-01] MEDS: traMADol 50 MG Tab PO SCH (10:17)
[2023-04-01] MEDS: Sennosides/Docusate Sodium 50-8.6 MG Tab PO SCH (10:17)
[2023-04-01] MEDS: Polyethylene Glycol 3350 Powder 17 GM Packet PO SCH (10:18)
[2023-04-01] MEDS ORDERED: LACOSAMIDE 200 MG PO SCH (10:45)
[2023-04-01] MEDS ORDERED: Levofloxacin 250 MG Tab PO SCH (11:00)
[2023-04-01] MEDS: Nitrofurantoin Monohydrate/Macrocrystalline 100 MG Cap PO SCH (11:25)
[2023-04-01] MEDS: hydrOXYzine Pamoate 25 MG Cap PO PRN (13:11)
[2023-04-01] MEDS: Acetaminophen/HYDROcodone 325-5 MG Tab PO SCH (15:46)
[2023-04-01] MEDS ORDERED: Naloxone 0.4 MG/ML SDV IVPUSH PRN (23:03)
[2023-04-01] MEDS: HYDROmorphone 2 MG/ML SDV IVPUSH PRN (23:24)
[2023-04-01] MEDS: Sodium Chloride 0.9% 10 ML Syringe FLUSH PRN (23:30)
[2023-04-02] MEDS: Pantoprazole 40 MG Tab.CR PO SCH (06:05)
[2023-04-02] MEDS: HYDROmorphone 2 MG Tab PO SCH (10:07)
[2023-04-04] MEDS: Acetaminophen/HYDROcodone 325-5 MG Tab PO SCH (14:31)
[2023-04-04] MEDS: HYDROmorphone 2 MG Tab PO SCH (21:09)
[2023-04-04] MEDS: Lacosamide 100 MG Tab PO SCH (22:10)
[2023-04-05] MEDS ORDERED: Bisacodyl 10 MG Supp RECTAL PRN (12:43)
[2023-04-05] MEDS ORDERED: Sodium Chloride 0.9% 10 ML Syringe FLUSH PRN (14:08)
[2023-04-05] MEDS: Bisacodyl 5 MG Tab PO ONE ×2 (15:16→20:31)
[2023-04-05] MEDS: Polyethylene Glycol 3350 Powder 238 GM Bot PO ONE (16:20)
[2023-04-05 23:43] LABS: BASOPHILS PERCENT AUTO 0.4 % (0.2-1.5); EOSINOPHILS ABSOLUTE AUTO 0.2 x10-3/uL (0.0-0.8); EOSINOPHILS PERCENT AUTO 3.1 % (0.6-8.1); HEMATOCRIT 37.8 % (34.2-48.2); HEMOGLOBIN 12.4 g/dL (11.4-15.5); LYMPHOCYTES ABSOLUTE AUTO 3.1 x10-3/uL (1.0-4.4); LYMPHOCYTES PERCENT AUTO 40.2 % (18.4-52.1); MEAN CORPUSCULAR HEMOGLOBIN 29.8 pg (23.9-33.9); MEAN CORPUSCULAR HGB CONC 32.8 g/dL (31.9-34.8); MEAN CORPUSCULAR VOLUME 90.9 fL (76.7-100.5); MEAN PLATELET VOLUME 6.1 fL (7.1-12.4); MONOCYTES ABSOLUTE AUTO 0.9 x10-3/uL (0.3-1.0); NEUTROPHILS ABSOLUTE AUTO 3.4 x10-3/uL (1.5-6.3); NEUTROPHILS PERCENT AUTO 44.3 % (30.8-76.2); PLATELET COUNT,PLT 371 x10(3)uL (151-488); RED BLOOD CELL COUNT 4.16 x10(6)uL (3.60-5.20); RED CELL DISTRIBUTION WIDTH 14.2 % (12.3-16.5); WHITE BLOOD CELL COUNT,WBC 7.6 x10-3/uL (3.0-10.3)
[2023-04-05] MEDS: 50% Dextrose in Water 50 ML Syringe IVPUSH ONE (23:52)
[2023-04-05 23:53] LABS: A/G RATIO 0.9; ALANINE AMINOTRANSFERASE,ALT 32 U/L (12-36); ALBUMIN 3.5 g/dL (3.2-4.6); ALKALINE PHOSPHATASE 93 IU/L (56-112); ASPARTATE AMNIOTRANSFERASE,AST 19 IU/L (5-25); BILIRUBIN TOTAL 0.2 mg/dL (0.1-1.3); BLOOD UREA NITROGEN,BUN 11 mg/dL (7-18); CARBON DIOXIDE,CO2 29 mmol/L (21-32); CHLORIDE,CL 95 mmol/L (100-110); CREATININE 0.5 mg/dL (0.55-1.02); EST CRCL DRUG DOSING (CG) 83.99 mL/min; ESTIMATED GFR 101 mL/min (>60); GLUCOSE RANDOM 78 mg/dL (80-116); POTASSIUM,K 3.4 mmol/L (3.5-5.3); PROTEIN TOTAL,TP 7.6 g/dL (6.0-8.0); SODIUM,NA 131 mmol/L (135-145)
[2023-04-06] MEDS: Sodium Chloride 0.9% 1,000 ML IV ONE (00:12)
[2023-04-06] MEDS: HYDROmorphone 2 MG/ML SDV IVPUSH ONE (00:13)
[2023-04-06] MEDS: Glucagon,Human Recombinant 1 MG Vial IM ONE (00:24)
[2023-04-06] MEDS: Potassium Chloride 20 MEQ Tab.ER PO ONE (00:35)
[2023-04-06 00:59] LABS: LIPASE 37 U/L (16-77); TROPONIN I < 4.0 pg/mL (4.0-60.3)
[2023-04-06] MEDS: Sodium Chloride 0.9% 1,000 ML IV SCH (03:53)
[2023-04-06] MEDS ORDERED: Lactated Ringers 1,000 ML IV SCH (08:00)
[2023-04-07] MEDS: Gabapentin 100 MG Cap PO PRN (15:29)
[2023-04-08] MEDS: Gabapentin 100 MG Cap PO SCH (18:00)
[2023-04-10] MEDS: Acetaminophen/oxyCODONE 325-5 MG Tab PO PRN (00:13)
[2023-04-10] MEDS: Gabapentin 300 MG Cap PO SCH ×2 (17:26→20:30)
[2023-04-11] MEDS: HYDROmorphone 2 MG Tab PO SCH (20:20)
[2023-04-14] MEDS: Lacosamide 100 MG Tab PO SCH (10:04)
[2023-04-14] MEDS: Acetaminophen/HYDROcodone 325-5 MG Tab PO SCH (14:06)
[2023-04-14] MEDS ORDERED: HYDROmorphone 2 MG Tab PO SCH (21:00)
[2023-04-14] MEDS: Nortriptyline 10 MG Cap PO SCH (21:01)
[2023-04-18 10:40] VITALS: BP 110/64; PULSE 64
== END 2023-04-18 10:37 | disposition home or self-care (01) | DRG 556 ==
LOC: FB.MS 09:30
PROVIDERS: ADMIT Family Medicine; ATTEND Family Medicine
DX: R26.2 Difficulty in walking, not elsewhere classified (principal); F11.20 Opioid dependence, uncomplicated; N30.00 Acute cystitis without hematuria; R53.1 Weakness; F41.9 Anxiety disorder, unspecified; F32.A Depression, unspecified; M48.02 Spinal stenosis, cervical region; S22.39XD Fracture of one rib, unspecified side, subsequent encounter for fracture with routine healing; R10.11 Right upper quadrant pain; G50.0 Trigeminal neuralgia; J44.9 Chronic obstructive pulmonary disease, unspecified; E78.00 Pure hypercholesterolemia, unspecified; K21.9 Gastro-esophageal reflux disease without esophagitis; K59.09 Other constipation; M89.9 Disorder of bone, unspecified; E86.0 Dehydration; N39.45 Continuous leakage; R63.4 Abnormal weight loss; R19.7 Diarrhea, unspecified; R07.89 Other chest pain; G89.29 Other chronic pain; Z88.0 Allergy status to penicillin; Z88.1 Allergy status to other antibiotic agents; Z88.8 Allergy status to other drugs, medicaments and biological substances; Z91.013 Allergy to seafood; Z79.899 Other long term (current) drug therapy; Z98.49 Cataract extraction status, unspecified eye; X58.XXXA Exposure to other specified factors, initial encounter
CPT/HCPCS: 80053; 82947; 83690; 83735; 84484; 85025; 93005; 93010; 97110-GO; 97110-GP; 97112-GP; 97116-GP; 97530-GO; 97530-GP; 97535-GO; 99305; 99307; 99309; 99316; A9270-GY; J1170; J3490; J7030

== ENCOUNTER 2023-05-11 19:25 | Inpatient (IN) | payer MEDICARE ==
[2023-05-11 20:28] LABS: BASOPHILS PERCENT AUTO 0.7 % (0.2-1.5); EOSINOPHILS ABSOLUTE AUTO 0.2 x10-3/uL (0.0-0.8); EOSINOPHILS PERCENT AUTO 2.8 % (0.6-8.1); HEMATOCRIT 38.8 % (34.2-48.2); HEMOGLOBIN 12.8 g/dL (11.4-15.5); LYMPHOCYTES ABSOLUTE AUTO 2.2 x10-3/uL (1.0-4.4); LYMPHOCYTES PERCENT AUTO 41.3 % (18.4-52.1); MEAN CORPUSCULAR HEMOGLOBIN 29.6 pg (23.9-33.9); MEAN CORPUSCULAR HGB CONC 32.9 g/dL (31.9-34.8); MEAN PLATELET VOLUME 6.6 fL (7.1-12.4); MONOCYTES ABSOLUTE AUTO 0.5 x10-3/uL (0.3-1.0); MONOCYTES PERCENT AUTO 9.6 % (4.4-15.7); NEUTROPHILS ABSOLUTE AUTO 2.4 x10-3/uL (1.5-6.3); NEUTROPHILS PERCENT AUTO 45.6 % (30.8-76.2); PLATELET COUNT,PLT 314 x10(3)uL (151-488); RED BLOOD CELL COUNT 4.31 x10(6)uL (3.60-5.20); RED CELL DISTRIBUTION WIDTH 14.1 % (12.3-16.5); WHITE BLOOD CELL COUNT,WBC 5.4 x10-3/uL (3.0-10.3)
[2023-05-11] MEDS: Ketorolac 30 MG/ML SDV IVPUSH ONE (20:29)
[2023-05-11 20:31] LABS: BLOOD UREA NITROGEN,BUN 13 mg/dL (7-18); BUN/CREATININE RATIO 21.7 (9-20); CALCIUM 9.4 mg/dL (8.6-10.2); CARBON DIOXIDE,CO2 28 mmol/L (21-32); CHLORIDE,CL 103 mmol/L (100-110); CREATININE 0.6 mg/dL (0.55-1.02); EST CRCL DRUG DOSING (CG) 69.99 mL/min; ESTIMATED GFR 97 mL/min (>60); GLUCOSE RANDOM 110 mg/dL (80-116); SODIUM,NA 140 mmol/L (135-145)
[2023-05-11 20:37] LABS: A/G RATIO 0.9; ALANINE AMINOTRANSFERASE,ALT 19 U/L (12-36); ALBUMIN 3.4 g/dL (3.2-4.6); ALKALINE PHOSPHATASE 84 IU/L (56-112); ASPARTATE AMNIOTRANSFERASE,AST 14 IU/L (5-25); BILIRUBIN TOTAL 0.4 mg/dL (0.1-1.3); MAGNESIUM 2.4 mg/dL (1.8-2.5); PROTEIN TOTAL,TP 7.4 g/dL (6.0-8.0)
[2023-05-11 21:03] LABS: BILIRUBIN,URINE NEGATIVE (NEGATIVE); GLUCOSE,URINE NORMAL (NORMAL); KETONES,URINE NEGATIVE (NEGATIVE); LEUKOCYTE ESTERASE,URINE NEGATIVE (NEGATIVE); NITRITE,URINE NEGATIVE (NEGATIVE); OCCULT BLOOD,URINE NEGATIVE (NEGATIVE); PROTEIN,URINE NEGATIVE (NEGATIVE); UROBILINOGEN,URINE NORMAL (NEGATIVE)
[2023-05-11 21:09] LABS: APPEARANCE,URINE CLEAR (CLEAR); BACTERIA,URINE OCCASIONAL (NS); COLOR,URINE YELLOW (YELLOW); RBC,URINE 0-5 (0-5); SQUAMOUS EPITHELIAL CELLS,UR RARE (NS,R,O); WBC,URINE 0-5 (0-5)
[2023-05-11] MEDS: traMADol 50 MG Tab PO ONE (23:13)
[2023-05-11] MEDS: LORazepam 2 MG/ML SDV IVPUSH ONE (23:13)
[2023-05-11] MEDS ORDERED: Ondansetron 4 MG/2 ML SDV IV PRN (23:19)
[2023-05-12] MEDS: Pantoprazole 40 MG Vial IVPUSH SCH (00:04)
[2023-05-12] MEDS: Sodium Chloride 0.9% 1,000 ML IV SCH (03:27)
[2023-05-12] MEDS: Acetaminophen 325 MG Tab PO PRN (03:36)
[2023-05-12] MEDS: traMADol 50 MG Tab PO PRN (05:22)
[2023-05-12] MEDS ORDERED: Sodium Chloride 0.9% 1,000 ML IV SCH (10:15)
[2023-05-12] MEDS: Morphine 2 MG/ML SYRINGE IVPUSH PRN (10:24)
[2023-05-12] MEDS: Sodium Chloride 0.9% 10 ML Syringe FLUSH PRN (10:30)
[2023-05-12] MEDS ORDERED: Bisacodyl 5 MG Tab PO PRN (10:55)
[2023-05-12] MEDS: Enoxaparin 40 MG/0.4 ML Syringe SUBCUT SCH (11:49)
[2023-05-12] MEDS: Gabapentin 300 MG Cap PO SCH (13:48)
[2023-05-12] MEDS: Acetaminophen/HYDROcodone 325-5 MG Tab PO PRN (13:48)
[2023-05-12] MEDS: Nortriptyline 10 MG Cap PO SCH (20:17)
[2023-05-12] MEDS: LORazepam 2 MG/ML SDV IV PRN (22:15)
[2023-05-13] MEDS: Pantoprazole 40 MG Tab.CR PO SCH (06:18)
[2023-05-13 06:19] LABS: EOSINOPHILS ABSOLUTE AUTO 0.2 x10-3/uL (0.0-0.8); EOSINOPHILS PERCENT AUTO 3.8 % (0.6-8.1); HEMATOCRIT 34.5 % (34.2-48.2); HEMOGLOBIN 11.3 g/dL (11.4-15.5); LYMPHOCYTES ABSOLUTE AUTO 2.1 x10-3/uL (1.0-4.4); LYMPHOCYTES PERCENT AUTO 43.3 % (18.4-52.1); MEAN CORPUSCULAR HEMOGLOBIN 29.4 pg (23.9-33.9); MEAN CORPUSCULAR HGB CONC 32.8 g/dL (31.9-34.8); MEAN CORPUSCULAR VOLUME 89.7 fL (76.7-100.5); MEAN PLATELET VOLUME 6.1 fL (7.1-12.4); MONOCYTES ABSOLUTE AUTO 0.6 x10-3/uL (0.3-1.0); MONOCYTES PERCENT AUTO 11.5 % (4.4-15.7); NEUTROPHILS ABSOLUTE AUTO 1.9 x10-3/uL (1.5-6.3); NEUTROPHILS PERCENT AUTO 40.4 % (30.8-76.2); PLATELET COUNT,PLT 274 x10(3)uL (151-488); RED BLOOD CELL COUNT 3.85 x10(6)uL (3.60-5.20); RED CELL DISTRIBUTION WIDTH 13.9 % (12.3-16.5); WHITE BLOOD CELL COUNT,WBC 4.8 x10-3/uL (3.0-10.3)
[2023-05-13 06:31] LABS: BLOOD UREA NITROGEN,BUN 17 mg/dL (7-18); BUN/CREATININE RATIO 28.3 (9-20); CALCIUM 8.8 mg/dL (8.6-10.2); CARBON DIOXIDE,CO2 29 mmol/L (21-32); CHLORIDE,CL 104 mmol/L (100-110); CREATINE KINASE,CK 32 IU/L (60-160); CREATININE 0.6 mg/dL (0.55-1.02); EST CRCL DRUG DOSING (CG) 66.78 mL/min; ESTIMATED GFR 97 mL/min (>60); GLUCOSE RANDOM 92 mg/dL (80-116); POTASSIUM,K 4.1 mmol/L (3.5-5.3); SODIUM,NA 138 mmol/L (135-145)
[2023-05-13] MEDS: Escitalopram 20 MG Tab PO SCH (09:34)
[2023-05-13] MEDS: Polyethylene Glycol 3350 Powder 17 GM Packet PO SCH (09:34)
[2023-05-13] MEDS: Mirabegron 25 MG Tab Extended Release PO SCH (09:34)
[2023-05-13] MEDS: Dorzolamide/Timolol 2%-0.5% Ophth Soln 10 ML Bottle EYEBOTH SCH (11:56)
[2023-05-13] MEDS: LORazepam 1 MG Tab PO PRN (11:57)
[2023-05-13] MEDS: Acetaminophen/HYDROcodone 325-5 MG Tab PO ONE (13:09)
[2023-05-14 06:46] LABS: BASOPHILS PERCENT AUTO 0.6 % (0.2-1.5); EOSINOPHILS ABSOLUTE AUTO 0.2 x10-3/uL (0.0-0.8); EOSINOPHILS PERCENT AUTO 3.8 % (0.6-8.1); HEMATOCRIT 36.8 % (34.2-48.2); HEMOGLOBIN 12.2 g/dL (11.4-15.5); LYMPHOCYTES ABSOLUTE AUTO 2.3 x10-3/uL (1.0-4.4); LYMPHOCYTES PERCENT AUTO 41.5 % (18.4-52.1); MEAN CORPUSCULAR HEMOGLOBIN 29.8 pg (23.9-33.9); MEAN CORPUSCULAR HGB CONC 33.2 g/dL (31.9-34.8); MEAN CORPUSCULAR VOLUME 89.7 fL (76.7-100.5); MEAN PLATELET VOLUME 6.3 fL (7.1-12.4); MONOCYTES ABSOLUTE AUTO 0.5 x10-3/uL (0.3-1.0); MONOCYTES PERCENT AUTO 9.3 % (4.4-15.7); NEUTROPHILS ABSOLUTE AUTO 2.5 x10-3/uL (1.5-6.3); NEUTROPHILS PERCENT AUTO 44.8 % (30.8-76.2); PLATELET COUNT,PLT 286 x10(3)uL (151-488); RED CELL DISTRIBUTION WIDTH 13.9 % (12.3-16.5); WHITE BLOOD CELL COUNT,WBC 5.6 x10-3/uL (3.0-10.3)
[2023-05-14 06:49] LABS: BLOOD UREA NITROGEN,BUN 15 mg/dL (7-18); BUN/CREATININE RATIO 21.4 (9-20); CARBON DIOXIDE,CO2 28 mmol/L (21-32); CHLORIDE,CL 106 mmol/L (100-110); CREATININE 0.7 mg/dL (0.55-1.02); EST CRCL DRUG DOSING (CG) 57.24 mL/min; ESTIMATED GFR 94 mL/min (>60); GLUCOSE RANDOM 154 mg/dL (80-116); POTASSIUM,K 3.8 mmol/L (3.5-5.3); SODIUM,NA 144 mmol/L (135-145)
[2023-05-14] MEDS: Baclofen 10 MG Tab PO ONE (19:56)
[2023-05-14] MEDS: Sennosides/Docusate Sodium 50-8.6 MG Tab PO PRN (19:56)
[2023-05-15] MEDS: Lactulose Soln 10 GM/15 ML 15 ML UD Cup PO PRN (04:12)
[2023-05-15 06:17] LABS: BASOPHILS PERCENT AUTO 0.6 % (0.2-1.5); EOSINOPHILS ABSOLUTE AUTO 0.2 x10-3/uL (0.0-0.8); EOSINOPHILS PERCENT AUTO 3.9 % (0.6-8.1); HEMATOCRIT 37.3 % (34.2-48.2); HEMOGLOBIN 12.4 g/dL (11.4-15.5); LYMPHOCYTES ABSOLUTE AUTO 1.9 x10-3/uL (1.0-4.4); LYMPHOCYTES PERCENT AUTO 35.9 % (18.4-52.1); MEAN CORPUSCULAR HEMOGLOBIN 29.7 pg (23.9-33.9); MEAN CORPUSCULAR HGB CONC 33.2 g/dL (31.9-34.8); MEAN CORPUSCULAR VOLUME 89.7 fL (76.7-100.5); MEAN PLATELET VOLUME 6.2 fL (7.1-12.4); MONOCYTES ABSOLUTE AUTO 0.5 x10-3/uL (0.3-1.0); NEUTROPHILS ABSOLUTE AUTO 2.7 x10-3/uL (1.5-6.3); NEUTROPHILS PERCENT AUTO 49.6 % (30.8-76.2); PLATELET COUNT,PLT 289 x10(3)uL (151-488); RED BLOOD CELL COUNT 4.15 x10(6)uL (3.60-5.20); RED CELL DISTRIBUTION WIDTH 13.9 % (12.3-16.5); WHITE BLOOD CELL COUNT,WBC 5.4 x10-3/uL (3.0-10.3)
[2023-05-15 06:20] LABS: BLOOD UREA NITROGEN,BUN 14 mg/dL (7-18); CALCIUM 9.2 mg/dL (8.6-10.2); CARBON DIOXIDE,CO2 30 mmol/L (21-32); CHLORIDE,CL 103 mmol/L (100-110); CREATININE 0.5 mg/dL (0.55-1.02); EST CRCL DRUG DOSING (CG) 80.13 mL/min; ESTIMATED GFR 101 mL/min (>60); GLUCOSE RANDOM 119 mg/dL (80-116); POTASSIUM,K 4.1 mmol/L (3.5-5.3); SODIUM,NA 141 mmol/L (135-145)
[2023-05-15] MEDS: Morphine 2 MG/ML SYRINGE IVPUSH PRN (11:05)
[2023-05-16 06:32] LABS: BASOPHILS PERCENT AUTO 0.7 % (0.2-1.5); EOSINOPHILS ABSOLUTE AUTO 0.2 x10-3/uL (0.0-0.8); EOSINOPHILS PERCENT AUTO 3.4 % (0.6-8.1); HEMOGLOBIN 12.2 g/dL (11.4-15.5); LYMPHOCYTES ABSOLUTE AUTO 2.4 x10-3/uL (1.0-4.4); LYMPHOCYTES PERCENT AUTO 45.3 % (18.4-52.1); MEAN CORPUSCULAR HEMOGLOBIN 29.6 pg (23.9-33.9); MEAN CORPUSCULAR HGB CONC 33.1 g/dL (31.9-34.8); MEAN CORPUSCULAR VOLUME 89.7 fL (76.7-100.5); MEAN PLATELET VOLUME 6.3 fL (7.1-12.4); MONOCYTES ABSOLUTE AUTO 0.6 x10-3/uL (0.3-1.0); MONOCYTES PERCENT AUTO 10.3 % (4.4-15.7); NEUTROPHILS ABSOLUTE AUTO 2.2 x10-3/uL (1.5-6.3); NEUTROPHILS PERCENT AUTO 40.3 % (30.8-76.2); PLATELET COUNT,PLT 282 x10(3)uL (151-488); RED BLOOD CELL COUNT 4.12 x10(6)uL (3.60-5.20); RED CELL DISTRIBUTION WIDTH 13.8 % (12.3-16.5); WHITE BLOOD CELL COUNT,WBC 5.4 x10-3/uL (3.0-10.3)
[2023-05-16 06:35] LABS: BLOOD UREA NITROGEN,BUN 19 mg/dL (7-18); BUN/CREATININE RATIO 27.1 (9-20); CALCIUM 9.3 mg/dL (8.6-10.2); CARBON DIOXIDE,CO2 33 mmol/L (21-32); CHLORIDE,CL 102 mmol/L (100-110); CREATININE 0.7 mg/dL (0.55-1.02); EST CRCL DRUG DOSING (CG) 57.24 mL/min; ESTIMATED GFR 94 mL/min (>60); GLUCOSE RANDOM 84 mg/dL (80-116); POTASSIUM,K 4.4 mmol/L (3.5-5.3); SODIUM,NA 140 mmol/L (135-145)
[2023-05-16] MEDS ORDERED: hydrOXYzine Pamoate 25 MG Cap PO PRN (09:45)
[2023-05-17 10:53] VITALS: BP 109/58; PULSE 80
== END 2023-05-17 10:55 | disposition swing bed (61) | DRG 552 ==
LOC: FB.ED 19:25 → FB.MS 23:05 → OBSVTOIN 05-12 10:59
PROVIDERS: ADMIT Emergency Medicine; ATTEND Internal Medicine
DX: R10.32 Left lower quadrant pain (principal); R26.89 Other abnormalities of gait and mobility; M47.12 Other spondylosis with myelopathy, cervical region; M48.02 Spinal stenosis, cervical region; R10.31 Right lower quadrant pain; Z90.49 Acquired absence of other specified parts of digestive tract; M79.604 Pain in right leg; R29.898 Other symptoms and signs involving the musculoskeletal system; R20.9 Unspecified disturbances of skin sensation; M79.7 Fibromyalgia; G50.0 Trigeminal neuralgia; K21.9 Gastro-esophageal reflux disease without esophagitis; Z88.8 Allergy status to other drugs, medicaments and biological substances; E78.00 Pure hypercholesterolemia, unspecified; J44.9 Chronic obstructive pulmonary disease, unspecified; K59.09 Other constipation; M19.90 Unspecified osteoarthritis, unspecified site; D64.9 Anemia, unspecified; F41.9 Anxiety disorder, unspecified; F32.9 Major depressive disorder, single episode, unspecified; F17.200 Nicotine dependence, unspecified, uncomplicated; Z88.0 Allergy status to penicillin; Z91.013 Allergy to seafood; Z88.1 Allergy status to other antibiotic agents; Z98.49 Cataract extraction status, unspecified eye; Z79.899 Other long term (current) drug therapy; Z90.710 Acquired absence of both cervix and uterus; Z98.890 Other specified postprocedural states
CPT/HCPCS: 36415; 71045; 72141; 72146; 72148; 74176; 80048; 80053; 81001; 82550; 83735; 85025; 86140; 96374; 96375; 97116-GP; 97161-GP; 97530-GP; 97760-GP; 99285; 99285-25; A9270-GY; C1758; C9113; G0378; J1650; J1885; J2060; J2270; J3490; J7030

== ENCOUNTER 2023-05-17 10:58 | Inpatient (IN) | payer MEDICARE ==
[2023-05-17] MEDS ORDERED: Ondansetron 4 MG Tab.DIS PO PRN (11:12)
[2023-05-17] MEDS ORDERED: Lactulose Soln 10 GM/15 ML 15 ML UD Cup PO PRN (11:24)
[2023-05-17] MEDS: Gabapentin 300 MG Cap PO SCH (13:49)
[2023-05-17] MEDS: Acetaminophen 325 MG Tab PO PRN (13:49)
[2023-05-17] MEDS: Acetaminophen/HYDROcodone 325-5 MG Tab PO PRN (16:02)
[2023-05-17] MEDS: Dorzolamide/Timolol 2%-0.5% Ophth Soln 10 ML Bottle EYEBOTH SCH (21:19)
[2023-05-17] MEDS: Nortriptyline 10 MG Cap PO SCH (21:20)
[2023-05-18] MEDS: hydrOXYzine Pamoate 25 MG Cap PO PRN (01:33)
[2023-05-18] MEDS: Sennosides/Docusate Sodium 50-8.6 MG Tab PO PRN (05:33)
[2023-05-18] MEDS: Pantoprazole 40 MG Tab.CR PO SCH (05:38)
[2023-05-18] MEDS: Mirabegron 25 MG Tab Extended Release PO SCH (10:15)
[2023-05-18] MEDS: Polyethylene Glycol 3350 Powder 17 GM Packet PO SCH (10:15)
[2023-05-18] MEDS: Escitalopram 20 MG Tab PO SCH (10:15)
[2023-05-18] MEDS: Cranberry 500 MG Cap PO SCH (10:15)
[2023-05-18] MEDS: Multivitamins with Iron/Calcium/Folic Acid/Minerals Tab PO SCH (10:16)
[2023-05-18] MEDS: Cyanocobalamin (Vitamin B12) 1,000 MCG Tab PO SCH (10:16)
[2023-05-18] MEDS: Calcium Carbonate 500 MG Tablet PO SCH (10:16)
[2023-05-18] MEDS: Nortriptyline 10 MG Cap PO SCH (21:59)
[2023-05-20] MEDS: Bisacodyl 5 MG Tab PO PRN (07:57)
[2023-05-22] MEDS: Acetaminophen/HYDROcodone 325-5 MG Tab PO PRN (11:16)
[2023-05-24] MEDS: LORazepam 1 MG Tab PO PRN (17:58)
[2023-05-25] MEDS: Gabapentin 300 MG Cap ONE (17:24)
[2023-05-27] MEDS: Acetaminophen/HYDROcodone 325-5 MG Tab PO ONE (14:14)
[2023-05-27] MEDS: Carboxymethylcellulose Sodium 0.5% Ophth Soln 15 ML Bottle EYEBOTH PRN (14:20)
[2023-06-05 13:20] LABS: APPEARANCE,URINE SLIGHTLY CLOUDY (CLEAR); BACTERIA,URINE MANY (NS); BILIRUBIN,URINE NEGATIVE (NEGATIVE); COLOR,URINE YELLOW (YELLOW); GLUCOSE,URINE NORMAL (NORMAL); KETONES,URINE NEGATIVE (NEGATIVE); LEUKOCYTE ESTERASE,URINE NEGATIVE (NEGATIVE); NITRITE,URINE NEGATIVE (NEGATIVE); OCCULT BLOOD,URINE NEGATIVE (NEGATIVE); PROTEIN,URINE NEGATIVE (NEGATIVE); RBC,URINE 0-5 (0-5); SQUAMOUS EPITHELIAL CELLS,UR FEW (NS,R,O); UROBILINOGEN,URINE NORMAL (NEGATIVE); WBC,URINE 0-5 (0-5)
[2023-06-07 06:35] VITALS: BP 104/62; PULSE 69
== END 2023-06-07 10:34 | disposition home health service (06) | DRG 948 ==
LOC: FB.MS 10:58
PROVIDERS: ADMIT Internal Medicine; ATTEND Family Medicine
DX: R53.1 Weakness (principal); M48.02 Spinal stenosis, cervical region; F41.9 Anxiety disorder, unspecified; F32.A Depression, unspecified; H91.90 Unspecified hearing loss, unspecified ear; H54.7 Unspecified visual loss; J44.9 Chronic obstructive pulmonary disease, unspecified; K59.09 Other constipation; E78.00 Pure hypercholesterolemia, unspecified; K21.9 Gastro-esophageal reflux disease without esophagitis; R26.2 Difficulty in walking, not elsewhere classified; M16.12 Unilateral primary osteoarthritis, left hip; G50.0 Trigeminal neuralgia; M54.81 Occipital neuralgia; M81.0 Age-related osteoporosis without current pathological fracture; F17.200 Nicotine dependence, unspecified, uncomplicated; Z88.0 Allergy status to penicillin; Z91.013 Allergy to seafood; Z88.1 Allergy status to other antibiotic agents; Z88.8 Allergy status to other drugs, medicaments and biological substances; Z79.899 Other long term (current) drug therapy; Z86.010 Personal history of colon polyps; Z87.442 Personal history of urinary calculi; Z98.49 Cataract extraction status, unspecified eye; Z90.49 Acquired absence of other specified parts of digestive tract; Z90.710 Acquired absence of both cervix and uterus; Z98.890 Other specified postprocedural states
CPT/HCPCS: 81001; 97110-GO; 97112-GP; 97116-GP; 97165-GO; 97530-GP; 97535-GO; A9270-GY

== ENCOUNTER 2023-07-09 20:15 | Emergency (ER) | payer MEDICARE ==
[2023-07-09] MEDS ORDERED: traMADol 50 MG Tab PO ONE (20:16)
[2023-07-09] MEDS: hydrOXYzine HCl 50 MG/ML SDV IM ONE (20:48)
[2023-07-09] MEDS: Morphine 10 MG/ML SDV IM ONE (20:48)
[2023-07-09 21:18] VITALS: BP 118/82; PULSE 97
== END 2023-07-09 22:28 | disposition home or self-care (01) ==
LOC: FB.ED 20:15
DX: S09.90XA Unspecified injury of head, initial encounter (principal); R53.1 Weakness; M16.9 Osteoarthritis of hip, unspecified; K21.9 Gastro-esophageal reflux disease without esophagitis; J44.9 Chronic obstructive pulmonary disease, unspecified; E78.00 Pure hypercholesterolemia, unspecified; Z88.0 Allergy status to penicillin; Z88.1 Allergy status to other antibiotic agents; Z91.013 Allergy to seafood; Z88.8 Allergy status to other drugs, medicaments and biological substances; Z79.899 Other long term (current) drug therapy; Z90.49 Acquired absence of other specified parts of digestive tract; Z90.710 Acquired absence of both cervix and uterus; W19.XXXA Unspecified fall, initial encounter
CPT/HCPCS: 70450; 72125; 96372; 99283; 99284; A9270-GY; J2270; J3410

== ENCOUNTER 2023-09-08 17:40 | Emergency (ER) | payer MEDICARE, MEDICAID ==
[2023-09-08] MEDS ORDERED: Sodium Chloride 0.9% 10 ML Syringe FLUSH PRN (19:02)
[2023-09-08 19:12] LABS: BASOPHILS PERCENT AUTO 0.4 % (0.2-1.5); EOSINOPHILS ABSOLUTE AUTO 0.1 x10-3/uL (0.0-0.8); EOSINOPHILS PERCENT AUTO 2.3 % (0.6-8.1); HEMOGLOBIN 11.2 g/dL (11.4-15.5); LYMPHOCYTES ABSOLUTE AUTO 2.3 x10-3/uL (1.0-4.4); LYMPHOCYTES PERCENT AUTO 35.8 % (18.4-52.1); MEAN CORPUSCULAR HEMOGLOBIN 29.1 pg (23.9-33.9); MEAN CORPUSCULAR VOLUME 88.3 fL (76.7-100.5); MEAN PLATELET VOLUME 6.6 fL (7.1-12.4); MONOCYTES ABSOLUTE AUTO 0.7 x10-3/uL (0.3-1.0); MONOCYTES PERCENT AUTO 10.2 % (4.4-15.7); NEUTROPHILS ABSOLUTE AUTO 3.3 x10-3/uL (1.5-6.3); NEUTROPHILS PERCENT AUTO 51.3 % (30.8-76.2); PLATELET COUNT,PLT 377 x10(3)uL (151-488); RED BLOOD CELL COUNT 3.85 x10(6)uL (3.60-5.20); RED CELL DISTRIBUTION WIDTH 13.7 % (12.3-16.5); WHITE BLOOD CELL COUNT,WBC 6.5 x10-3/uL (3.0-10.3)
[2023-09-08 19:13] LABS: BLOOD UREA NITROGEN,BUN 23 mg/dL (7-18); BUN/CREATININE RATIO 32.9 (9-20); CARBON DIOXIDE,CO2 26 mmol/L (21-32); CHLORIDE,CL 104 mmol/L (100-110); CREATININE 0.7 mg/dL (0.55-1.02); EST CRCL DRUG DOSING (CG) 57.24 mL/min; ESTIMATED GFR 94 mL/min (>60); GLUCOSE RANDOM 83 mg/dL (80-116); POTASSIUM,K 4.4 mmol/L (3.5-5.3); SODIUM,NA 138 mmol/L (135-145)
[2023-09-08 19:16] LABS: C-REACTIVE PROTEIN 0.66 mg/dL (<0.50)
[2023-09-08 19:19] LABS: A/G RATIO 0.8; ALANINE AMINOTRANSFERASE,ALT 30 U/L (12-36); ALBUMIN 3.4 g/dL (3.2-4.6); ALKALINE PHOSPHATASE 135 IU/L (56-112); ASPARTATE AMNIOTRANSFERASE,AST 20 IU/L (5-25); BILIRUBIN TOTAL 0.2 mg/dL (0.1-1.3); PROTEIN TOTAL,TP 7.6 g/dL (6.0-8.0)
[2023-09-08] MEDS: Ketorolac 15 MG/ML SDV IVPUSH ONE (19:30)
[2023-09-08] MEDS: Sodium Chloride 0.9% 1,000 ML IV ONE (19:30)
[2023-09-08 21:16] LABS: BILIRUBIN,URINE NEGATIVE (NEGATIVE); GLUCOSE,URINE NORMAL (NORMAL); KETONES,URINE NEGATIVE (NEGATIVE); LEUKOCYTE ESTERASE,URINE NEGATIVE (NEGATIVE); NITRITE,URINE NEGATIVE (NEGATIVE); OCCULT BLOOD,URINE NEGATIVE (NEGATIVE); PH,URINE 6.5 (5.0-6.5); PROTEIN,URINE NEGATIVE (NEGATIVE); UROBILINOGEN,URINE NORMAL (NEGATIVE)
[2023-09-08 21:19] LABS: APPEARANCE,URINE CLEAR (CLEAR); BACTERIA,URINE FEW (NS); COLOR,URINE YELLOW (YELLOW); RBC,URINE 0-5 (0-5); SQUAMOUS EPITHELIAL CELLS,UR FEW (NS,R,O); WBC,URINE 0-5 (0-5)
[2023-09-08] MEDS: Acetaminophen/HYDROcodone 325-10 MG Tab PO ONE (22:02)
[2023-09-08 22:39] VITALS: BP 125/64; PULSE 72
== END 2023-09-08 22:16 | disposition home or self-care (01) ==
LOC: FB.ED 17:40
DX: K58.1 Irritable bowel syndrome with constipation (principal); K58.0 Irritable bowel syndrome with diarrhea; E78.00 Pure hypercholesterolemia, unspecified; J44.9 Chronic obstructive pulmonary disease, unspecified; K21.9 Gastro-esophageal reflux disease without esophagitis; Z90.49 Acquired absence of other specified parts of digestive tract; Z90.710 Acquired absence of both cervix and uterus; Z79.899 Other long term (current) drug therapy; Z91.013 Allergy to seafood; Z88.1 Allergy status to other antibiotic agents; Z88.8 Allergy status to other drugs, medicaments and biological substances; Z88.2 Allergy status to sulfonamides
CPT/HCPCS: 36415; 74176; 80053; 81001; 83605; 83690; 85025; 86140; 96361; 96374; 99284; 99284-25; A9270-GY; J1885; J7030

== ENCOUNTER 2024-02-06 19:00 | Emergency (ER) | payer MEDICARE, MEDICAID ==
[2024-02-06 19:23] VITALS: BP 152/78
[2024-02-06] MEDS: carBAMazepine 200 MG Tab PO ONE (19:44)
[2024-02-06 19:59] LABS: BASOPHILS PERCENT AUTO 0.6 % (0.2-1.5); EOSINOPHILS ABSOLUTE AUTO 0.1 x10-3/uL (0.0-0.8); EOSINOPHILS PERCENT AUTO 2.2 % (0.6-8.1); HEMATOCRIT 34.4 % (34.2-48.2); HEMOGLOBIN 11.6 g/dL (11.4-15.5); LYMPHOCYTES ABSOLUTE AUTO 2.2 x10-3/uL (1.0-4.4); LYMPHOCYTES PERCENT AUTO 34.6 % (18.4-52.1); MEAN CORPUSCULAR HGB CONC 33.8 g/dL (31.9-34.8); MEAN CORPUSCULAR VOLUME 88.6 fL (76.7-100.5); MONOCYTES ABSOLUTE AUTO 0.6 x10-3/uL (0.3-1.0); MONOCYTES PERCENT AUTO 9.6 % (4.4-15.7); NEUTROPHILS ABSOLUTE AUTO 3.4 x10-3/uL (1.5-6.3); PLATELET COUNT,PLT 345 x10(3)uL (151-488); RED BLOOD CELL COUNT 3.89 x10(6)uL (3.60-5.20); RED CELL DISTRIBUTION WIDTH 13.8 % (12.3-16.5); WHITE BLOOD CELL COUNT,WBC 6.4 x10-3/uL (3.0-10.3)
[2024-02-06 20:01] LABS: BLOOD UREA NITROGEN,BUN 19 mg/dL (7-18); BUN/CREATININE RATIO 23.8 (9-20); CALCIUM 9.4 mg/dL (8.6-10.2); CARBON DIOXIDE,CO2 31 mmol/L (21-32); CHLORIDE,CL 105 mmol/L (100-110); CREATININE 0.8 mg/dL (0.55-1.02); EST CRCL DRUG DOSING (CG) 49.38 mL/min; ESTIMATED GFR 79 mL/min (>60); GLUCOSE RANDOM 94 mg/dL (80-116); POTASSIUM,K 4.2 mmol/L (3.5-5.3); SODIUM,NA 142 mmol/L (135-145)
[2024-02-06 20:07] LABS: ALANINE AMINOTRANSFERASE,ALT 21 U/L (12-36); ALBUMIN 3.6 g/dL (3.2-4.6); ALKALINE PHOSPHATASE 78 IU/L (56-112); ASPARTATE AMNIOTRANSFERASE,AST 11 IU/L (5-25); BILIRUBIN TOTAL 0.2 mg/dL (0.1-1.3); PROTEIN TOTAL,TP 7.2 g/dL (6.0-8.0)
[2024-02-06] MEDS: Ketorolac 30 MG/ML SDV IM ONE (20:49)
[2024-02-06] MEDS ORDERED: HYDROmorphone 2 MG/ML SDV IVPUSH ONE (21:27)
[2024-02-06] MEDS: HYDROmorphone 2 MG/ML SDV IM ONE (21:34)
[2024-02-06 22:22] VITALS: PULSE 81
== END 2024-02-06 22:20 | disposition home or self-care (01) ==
LOC: FB.ED 19:00
DX: G50.0 Trigeminal neuralgia (principal); J44.9 Chronic obstructive pulmonary disease, unspecified; K21.9 Gastro-esophageal reflux disease without esophagitis; F17.210 Nicotine dependence, cigarettes, uncomplicated; Z90.49 Acquired absence of other specified parts of digestive tract; Z90.710 Acquired absence of both cervix and uterus; Z88.0 Allergy status to penicillin; Z88.1 Allergy status to other antibiotic agents; Z88.8 Allergy status to other drugs, medicaments and biological substances; Z91.013 Allergy to seafood; Z79.899 Other long term (current) drug therapy
CPT/HCPCS: 36415; 80053; 85025; 86140; 96372; 99283; A9270; J1171; J1885

== ENCOUNTER 2024-03-12 20:20 | Emergency (ER) | payer MEDICARE, MEDICAID ==
[2024-03-12] MEDS ORDERED: Ondansetron 4 MG Tab.DIS PO ONE (20:21)
[2024-03-12] MEDS ORDERED: traMADol 50 MG Tab PO ONE (20:21)
[2024-03-12 20:40] VITALS: BP 127/95; PULSE 81
[2024-03-12] MEDS ORDERED: Sodium Chloride 0.9% 10 ML Syringe FLUSH PRN (21:04)
[2024-03-12] MEDS: Sodium Chloride 0.9% 1,000 ML IV ONE (21:34)
[2024-03-12 21:37] LABS: HEMATOCRIT 36.3 % (34.2-48.2); HEMOGLOBIN 12.3 g/dL (11.4-15.5); MEAN CORPUSCULAR HEMOGLOBIN 30.1 pg (23.9-33.9); MEAN CORPUSCULAR HGB CONC 33.8 g/dL (31.9-34.8); MEAN CORPUSCULAR VOLUME 89.2 fL (76.7-100.5); MEAN PLATELET VOLUME 5.9 fL (7.1-12.4); PLATELET COUNT,PLT 354 x10(3)uL (151-488); RED BLOOD CELL COUNT 4.07 x10(6)uL (3.60-5.20); RED CELL DISTRIBUTION WIDTH 14.1 % (12.3-16.5); WHITE BLOOD CELL COUNT,WBC 16.2 x10-3/uL (3.0-10.3)
[2024-03-12] MEDS: Ondansetron 4 MG/2 ML SDV IVPUSH ONE (21:38)
[2024-03-12 21:42] LABS: BLOOD UREA NITROGEN,BUN 19 mg/dL (7-18); BUN/CREATININE RATIO 17.3 (9-20); CALCIUM 9.5 mg/dL (8.6-10.2); CARBON DIOXIDE,CO2 29 mmol/L (21-32); CHLORIDE,CL 103 mmol/L (100-110); CREATININE 1.1 mg/dL (0.55-1.02); EST CRCL DRUG DOSING (CG) 41.09 mL/min; ESTIMATED GFR 54 mL/min (>60); GLUCOSE RANDOM 94 mg/dL (80-116); POTASSIUM,K 4.5 mmol/L (3.5-5.3); SODIUM,NA 137 mmol/L (135-145)
[2024-03-12 21:47] LABS: LYMPHOCYTES PERCENT MAN 16 % (13-37); MONOCYTES PERCENT MAN 7 % (4-12); SEG NEUTROPHILS PERCENT MAN 77 % (46-82)
[2024-03-12 21:48] LABS: A/G RATIO 0.9; ALANINE AMINOTRANSFERASE,ALT 23 U/L (12-36); ALBUMIN 3.5 g/dL (3.2-4.6); ALKALINE PHOSPHATASE 93 IU/L (56-112); ASPARTATE AMNIOTRANSFERASE,AST 13 IU/L (5-25); BILIRUBIN TOTAL 0.2 mg/dL (0.1-1.3); MAGNESIUM 2.3 mg/dL (1.8-2.5); PROTEIN TOTAL,TP 7.4 g/dL (6.0-8.0)
[2024-03-12] MEDS: Iopamidol 755 Mg/ML 100 ML Bottle IV SCH (22:53)
[2024-03-13] MEDS ORDERED: Naloxone 0.4 MG/ML SDV IVPUSH PRN (00:19)
[2024-03-13 00:40] LABS: BILIRUBIN,URINE NEGATIVE (NEGATIVE); GLUCOSE,URINE NORMAL (NORMAL); KETONES,URINE NEGATIVE (NEGATIVE); LEUKOCYTE ESTERASE,URINE LARGE (NEGATIVE); NITRITE,URINE NEGATIVE (NEGATIVE); OCCULT BLOOD,URINE TRACE (NEGATIVE); PROTEIN,URINE TRACE mg/dL (NEGATIVE); UROBILINOGEN,URINE NORMAL (NEGATIVE)
[2024-03-13 00:49] LABS: APPEARANCE,URINE CLOUDY (CLEAR); BACTERIA,URINE MODERATE (NS); COLOR,URINE YELLOW (YELLOW); RBC,URINE 0-5 (0-5); SQUAMOUS EPITHELIAL CELLS,UR FEW (NS,R,O); WBC,URINE 50-75 (0-5)
[2024-03-13] MEDS: Morphine 2 MG/ML SYRINGE IVPUSH ONE (01:08)
[2024-03-13] MEDS: cefTRIAXone 2 GM Vial IVPUSH ONE (01:34)
== END 2024-03-13 03:05 | disposition home or self-care (01) ==
LOC: FB.ED 20:20
DX: N30.00 Acute cystitis without hematuria (principal); K58.0 Irritable bowel syndrome with diarrhea; E86.0 Dehydration; E78.00 Pure hypercholesterolemia, unspecified; F17.200 Nicotine dependence, unspecified, uncomplicated; J44.9 Chronic obstructive pulmonary disease, unspecified; Z90.49 Acquired absence of other specified parts of digestive tract; Z90.710 Acquired absence of both cervix and uterus; Z88.1 Allergy status to other antibiotic agents; Z88.0 Allergy status to penicillin; Z91.013 Allergy to seafood; Z88.8 Allergy status to other drugs, medicaments and biological substances; Z79.899 Other long term (current) drug therapy
CPT/HCPCS: 36415; 74177; 80053; 81001; 83605; 83690; 83735; 85025; 87086; 87186; 96361; 96374; 96375; 99284; A9270; J0696; J2270; J2405; J7030; Q0162; Q9967

== ENCOUNTER 2024-04-25 00:57 | Emergency (ER) | payer MEDICARE, MEDICAID ==
[2024-04-25 01:10] VITALS: BP 115/45; PULSE 80
[2024-04-25] MEDS ORDERED: Sodium Chloride 0.9% 10 ML Syringe FLUSH PRN (01:16)
[2024-04-25 01:26] LABS: BASOPHILS PERCENT AUTO 0.5 % (0.2-1.5); EOSINOPHILS ABSOLUTE AUTO 0.2 x10-3/uL (0.0-0.8); EOSINOPHILS PERCENT AUTO 2.4 % (0.6-8.1); HEMATOCRIT 33.1 % (34.2-48.2); HEMOGLOBIN 11.7 g/dL (11.4-15.5); LYMPHOCYTES ABSOLUTE AUTO 2.9 x10-3/uL (1.0-4.4); MEAN CORPUSCULAR HEMOGLOBIN 32.9 pg (23.9-33.9); MEAN CORPUSCULAR HGB CONC 35.4 g/dL (31.9-34.8); MEAN CORPUSCULAR VOLUME 93.1 fL (76.7-100.5); MONOCYTES ABSOLUTE AUTO 0.3 x10-3/uL (0.3-1.0); MONOCYTES PERCENT AUTO 4.1 % (4.4-15.7); NEUTROPHILS PERCENT AUTO 54.1 % (30.8-76.2); PLATELET COUNT,PLT 259 x10(3)uL (151-488); RED BLOOD CELL COUNT 3.56 x10(6)uL (3.60-5.20); WHITE BLOOD CELL COUNT,WBC 7.4 x10-3/uL (3.0-10.3)
[2024-04-25] MEDS ORDERED: Naloxone 0.4 MG/ML SDV IVPUSH PRN (01:28)
[2024-04-25 01:29] LABS: BLOOD UREA NITROGEN,BUN 17 mg/dL (7-18); BUN/CREATININE RATIO 18.9 (9-20); CARBON DIOXIDE,CO2 27 mmol/L (21-32); CHLORIDE,CL 101 mmol/L (100-110); CREATININE 0.9 mg/dL (0.55-1.02); EST CRCL DRUG DOSING (CG) 43.89 mL/min; ESTIMATED GFR 69 mL/min (>60); GLUCOSE RANDOM 168 mg/dL (80-116); POTASSIUM,K 3.8 mmol/L (3.5-5.3); SODIUM,NA 138 mmol/L (135-145)
[2024-04-25 01:34] LABS: ALANINE AMINOTRANSFERASE,ALT 28 U/L (12-36); ALBUMIN 3.6 g/dL (3.2-4.6); ALKALINE PHOSPHATASE 97 IU/L (56-112); ASPARTATE AMNIOTRANSFERASE,AST 21 IU/L (5-25); BILIRUBIN TOTAL 0.4 mg/dL (0.1-1.3); MAGNESIUM 2.3 mg/dL (1.8-2.5); PROTEIN TOTAL,TP 7.4 g/dL (6.0-8.0)
[2024-04-25] MEDS: fentaNYL 100 MCG/2 ML SDV IVPUSH ONE (01:43)
[2024-04-25] MEDS: Ondansetron 4 MG/2 ML SDV IVPUSH ONE (01:43)
[2024-04-25] MEDS: Sodium Chloride 0.9% 500 ML IV ONE (01:44)
== END 2024-04-25 04:08 | disposition home or self-care (01) ==
LOC: FB.ED 00:57
DX: K59.00 Constipation, unspecified (principal); R14.0 Abdominal distension (gaseous); E78.00 Pure hypercholesterolemia, unspecified; J44.9 Chronic obstructive pulmonary disease, unspecified; F17.210 Nicotine dependence, cigarettes, uncomplicated; Z88.1 Allergy status to other antibiotic agents; Z88.8 Allergy status to other drugs, medicaments and biological substances; Z88.0 Allergy status to penicillin; Z91.013 Allergy to seafood; Z79.899 Other long term (current) drug therapy
CPT/HCPCS: 36415; 74176; 80053; 83605; 83735; 84484; 85025; 93010; 96361; 96374; 96375; 99284; 99285-25; J2405; J3010

== ENCOUNTER 2024-06-27 11:29 | Emergency (ER) | payer MEDICARE, MEDICAID ==
[2024-06-27 11:56] LABS: BASOPHILS PERCENT AUTO 0.4 % (0.2-1.5); EOSINOPHILS ABSOLUTE AUTO 0.1 x10-3/uL (0.0-0.8); EOSINOPHILS PERCENT AUTO 2.2 % (0.6-8.1); HEMATOCRIT 36.7 % (34.2-48.2); HEMOGLOBIN 12.6 g/dL (11.4-15.5); LYMPHOCYTES ABSOLUTE AUTO 2.7 x10-3/uL (1.0-4.4); LYMPHOCYTES PERCENT AUTO 48.3 % (18.4-52.1); MEAN CORPUSCULAR HGB CONC 34.2 g/dL (31.9-34.8); MEAN CORPUSCULAR VOLUME 90.5 fL (76.7-100.5); MEAN PLATELET VOLUME 6.1 fL (7.1-12.4); MONOCYTES ABSOLUTE AUTO 0.6 x10-3/uL (0.3-1.0); MONOCYTES PERCENT AUTO 10.8 % (4.4-15.7); NEUTROPHILS ABSOLUTE AUTO 2.2 x10-3/uL (1.5-6.3); NEUTROPHILS PERCENT AUTO 38.3 % (30.8-76.2); PLATELET COUNT,PLT 288 x10(3)uL (151-488); RED BLOOD CELL COUNT 4.06 x10(6)uL (3.60-5.20); RED CELL DISTRIBUTION WIDTH 13.5 % (12.3-16.5); WHITE BLOOD CELL COUNT,WBC 5.6 x10-3/uL (3.0-10.3)
[2024-06-27 12:00] LABS: BLOOD UREA NITROGEN,BUN 13 mg/dL (7-18); BUN/CREATININE RATIO 16.3 (9-20); CALCIUM 9.3 mg/dL (8.6-10.2); CARBON DIOXIDE,CO2 31 mmol/L (21-32); CHLORIDE,CL 102 mmol/L (100-110); CREATININE 0.8 mg/dL (0.55-1.02); ESTIMATED GFR 79 mL/min (>60); GLUCOSE RANDOM 89 mg/dL (80-116); POTASSIUM,K 4.4 mmol/L (3.5-5.3); SODIUM,NA 136 mmol/L (135-145)
[2024-06-27 12:03] VITALS: BP 143/75; PULSE 80
[2024-06-27 12:07] LABS: A/G RATIO 1.1; ALANINE AMINOTRANSFERASE,ALT 29 U/L (12-36); ALBUMIN 3.8 g/dL (3.2-4.6); ALKALINE PHOSPHATASE 88 IU/L (56-112); ASPARTATE AMNIOTRANSFERASE,AST 17 IU/L (5-25); BILIRUBIN TOTAL 0.4 mg/dL (0.1-1.3); MAGNESIUM 2.2 mg/dL (1.8-2.5); PROTEIN TOTAL,TP 7.4 g/dL (6.0-8.0)
[2024-06-27 12:09] LABS: C-REACTIVE PROTEIN 1.41 mg/dL (<0.50)
[2024-06-27 12:10] LABS: TROPONIN I < 4.0 pg/mL (4.0-60.3)
[2024-06-27] MEDS: Ketorolac 30 MG/ML SDV IVPUSH ONE (12:32)
[2024-06-27] MEDS: traMADol 50 MG Tab PO ONE (12:32)
[2024-06-27] MEDS: Sodium Chloride 0.9% 10 ML Syringe FLUSH PRN (12:35)
== END 2024-06-27 14:55 | disposition home or self-care (01) ==
LOC: FB.ED 11:29
DX: R07.89 Other chest pain (principal); E78.00 Pure hypercholesterolemia, unspecified; J44.9 Chronic obstructive pulmonary disease, unspecified; Z90.49 Acquired absence of other specified parts of digestive tract; Z90.710 Acquired absence of both cervix and uterus; F17.200 Nicotine dependence, unspecified, uncomplicated; Z79.899 Other long term (current) drug therapy; Z91.013 Allergy to seafood; Z88.8 Allergy status to other drugs, medicaments and biological substances; Z88.0 Allergy status to penicillin; Z88.1 Allergy status to other antibiotic agents
CPT/HCPCS: 36415; 71045; 80053; 83735; 84484; 85025; 85379; 86140; 93005; 96374; 99285-25; A9270-GY; J1885